=== PATIENT | male | born 1970 | race Hispanic/Latino ===

== ENCOUNTER 2018-03-23 15:41 | Emergency (ER) | payer OTHER ==
--- OUTSIDE RECORDS SUMMARY | 2018-03-23 15:43 | XMS REPORT ---
:1970 Author Organization eClinicalWorks Care Team Providers Name Role Phone Rene Lai Provider Role Unavailable Allergies, Adverse Reactions, Alerts Substance Reaction Event Type Amoxicillin Info Not Available Drug Allergy Problems Problem Type Condition Code Onset Dates Condition Status Problem Microcytic anemia D50.9 Active Problem Pulmonary embolism I26.99 Active Problem Hx pulmonary embolism Z86.711 Active Problem Benign essential HTN I10 Active Problem Vitamin D deficiency E55.9 Active Problem Erectile dysfunction, unspecified N52.9 Active erectile dysfunction type Problem Prediabetes R73.09 Active Problem Onychomycosis B35.1 Active Problem GERD (gastroesophageal reflux K21.9 Active disease) Problem Morbid obesity E66.01 Active Assessment Microcytic anemia D50.9 Active Assessment Erectile dysfunction, unspecified N52.9 Active erectile dysfunction type Assessment Chronic atrial fibrillation I48.2 Active Assessment GERD (gastroesophageal reflux K21.9 Active disease) Assessment Benign essential HTN I10 Active Assessment Prediabetes R73.09 Active Problem Chronic atrial fibrillation I48.2 Active Medications Medication Code Code Instructions Start End Status Dosage System Date Date [facility] 71647733878 81 MG Orally Active 1 tablet Once a day Calcium + D3 [facility] 45756611815 600-200 MG-UNIT Active 1 tablet Orally Once a with a day meal Ferrous Sulfate [facility] [address]-48 325 MG Orally Active not defined Vitamin B12 [facility] 33980140180 1000 MCG Orally Active 1 tablet Once a day Metoprolol [facility] 52695625257 25 MG Orally Active 1 tablet Tartrate Twice a day with food Rythmol [facility] 78404796959 225 MG Orally Active 1 tablet every 8 hrs Sildenafil ND 49944810477 20 MG Orally December 12January Active 1 tablet Citrate Three times a 2017 Multivitamin [facility] 94642552553 - Orally Active not defined Results No Known Results Summary Purpose eClinicalWorks Submission
[2018-03-23] MEDS ORDERED: NA CHLORIDE 0.9% 500 ML ONE (16:00)
[2018-03-23 16:20] LABS: Absolute Lymphocytes (CBC) 1.5 K/uL (0.7-4.9); Absolute Monocytes 0.8 K/uL (0.1-1.3); Absolute Neutrophil 6.6 K/uL (1.8-8.0); Basophils % 0.5 % (0-1.3); Eosinophils % 3.1 % (0-4.4); Hematocrit 43.5 % (39.6-49.0); Lymphocytes % 16.2 % (15.3-44.8); MCH 29.8 pg (27.0-35.0); MCV 89.5 fL (80-100); MPV 8.9 fL (7.6-11.3); Monocytes % 8.9 % (3.3-12.3); RBC Red Blood Cell Count 4.86 M/uL (4.33-5.43)
--- NOTE | 2018-03-23 16:30 | RAD REPORT ---
EXAM DESCRIPTION: RAD - Chest Single View - 03/23/2018 4:23 pm CLINICAL HISTORY: Palpitations;Chest pain Chest pain. COMPARISON: Chest Single View dated 02/21/2017; CHEST SINGLE VIEW dated 01/02/2015; CHEST SINGLE VIEW d ated 03/24/2013; CHEST SINGLE VIEW dated 11/04/2011 FINDINGS: Portable technique limits examination quality. The lungs are grossly clear. The heart is normal in size. No displaced fractures. IMPRESSION: No acute intrathoracic process suspected.
[2018-03-23 16:35] LABS: Protime INR 1.13
[2018-03-23 17:52] LABS: ALT/SGPT 34 U/L (12-78); AST/SGOT 24 U/L (15-37); Albumin 3.6 g/dL (3.4-5.0); Alkaline Phosphatase 119 U/L (45-117); BUN Blood Urea Nitrogen 16 mg/dL (7-18); Bicarbonate 27 mmol/L (21-32); Bilirubin Direct 0.2 mg/dL (0-0.2); Bilirubin Total 0.5 mg/dL (0.2-1.0); Glucose Level 79 mg/dL (74-106); Magnesium 2.3 mg/dL (1.8-2.4); NT PRO-BNP 48 pg/mL (<125); Potassium 4.1 mmol/L (3.5-5.1); Protein, Total 7.5 g/dL (6.4-8.2); Sodium Level 143 mmol/L (136-145); T3 Free 2.75 pg/mL (2.18-3.98); Troponin (Emerg Dept Use Only) < 0.02 ng/mL (0.0-0.045)
[2018-03-23] MEDS ORDERED: ACETAMINOPHEN 500 MG TAB ONE (18:57)
--- NOTE | 2018-03-23 19:38 | ER ---
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 aa5 Pt states "I was just here at work when it started". 15:39 Transition of care: patient was not received from another setting of care. Onset of aa5 symptoms was March 23, 2018. Risk Assessment: Do you want to hurt yourself or someone else? Patient reports no desire to harm self or others. Initial Sepsis Screen: Does the patient meet any 2 criteria? No. Patient's initial sepsis screen is negative. Does the patient have a suspected source of infection? No. Patient's initial sepsis screen is negative. Care prior to arrival: None. 15:39 Method Of Arrival: Ambulatory aa5 15:39 Acuity: MATT 3 aa5 Historical: - Allergies: 15:41 PENICILLINS; aa5 - PMHx: 15:41 Atrial Fib; aa5 - PSHx: 15:41 kristy knee surgery; Gastric Bypass; aa5 - Immunization history:: Adult Immunizations up to date. - Social history:: Smoking status: Patient/guardian denies using tobacco. - Ebola Screening: : No symptoms or risks identified at this time. Screenin:02 Abuse screen: Denies threats or abuse. Denies injuries from another. Nutritional aj screening: No deficits noted. Tuberculosis screening: No symptoms or risk factors identified. Fall Risk None identified. Assessment: 16:02 General: Appears in no apparent distress. comfortable, Behavior is calm, cooperative, aj appropriate for age. Pain: Denies pain. Neuro: Level of Consciousness is awake, alert, obeys commands, Oriented to person, place, time, situation, Appropriate for age. Cardiovascular: Reports lightheadedness, palpitations. Respiratory: Airway is patent Respiratory effort is even, unlabored, Respiratory pattern is regular, symmetrical. Derm: Skin is intact, is healthy with good turgor, Skin is pink, warm \\T\\ dry. normal. 18:48 Reassessment: Patient appears in no apparent distress at this time. No changes from aj previously documented assessment. Patient and/or family updated on plan of care and expected duration. Pain level reassessed. Patient is alert, oriented x 3, equal unlabored respirations, skin warm/dry/pink. Patient denies pain at this time. Patient states feeling better. Patient states symptoms have improved. 19:12 Reassessment: Patient appears in no apparent distress at this time. No changes from jd3 previously documented assessment. Patient and/or family updated on plan of care and expected duration. Pain level reassessed. Patient is alert, oriented x 3, equal unlabored respirations, skin warm/dry/pink. Patient denies pain at this time. Patient states feeling better. 19:46 Reassessment: Patient appears in no apparent distress at this time. Patient and/or jd3 family updated on plan of care and expected duration. Pain level reassessed. Patient is alert, oriented x 3, equal unlabored respirations, skin warm/dry/pink. Vital Signs: 15:41 BP 148 / 86; Pulse 104; Resp 18 S; Pulse Ox 96% on R/A; Weight 161.03 kg (R); Height 5 aa5 ft. 8 in. (172.72 cm) (R); Pain 4/10; 16:02 BP 140 / 86; Pulse 97; Resp 16; Pulse Ox 97% on R/A; aj 17:05 BP 137 / 83; Pulse 81; Resp 18; Pulse Ox 99% on R/A; mh5 18:48 BP 132 / 90; Pulse 94; Resp 16; Pulse Ox 99% on R/A; aj 15:41 Body Mass Index 53.98 (161.03 kg, 172.72 cm) aa5 ED Course: 15:39 Patient arrived in ED. aj 15:39 Arm band placed on Patient placed in an exam room, on a stretcher. aa5 15:42 EKG completed in triage. Results shown to MD. aa5 15:44 Jorge Roberson PA is PHCP. cp 15:44 Matt Myles MD is Attending Physician. cp 15:45 EKG done, by wind technician. reviewed by Matt Myles MD. 3 15:47 Triage completed. aa5 15:49 Marlin Wisdom, RN is Primary Nurse. aj 16:02 Patient has correct armband on for positive identification. aj 16:02 Inserted saline lock: 20 gauge in right antecubital area, using aseptic technique. aj Blood collected. 16:22 X-ray completed. Portable x-ray completed in exam room. Patient tolerated procedure az well. 16:23 XRAY Chest (1 view) In Process Unspecified. EDMS 19:36 Ismael Cope MD is Referral Physician. cp 19:45 No provider procedures requiring assistance completed. IV discontinued, intact, jd3 bleeding controlled, No redness/swelling at site. Pressure dressing applied. Administered Medications: 16:02 Drug: NS 0.9% 500 ml Route: IV; Rate: bolus; Site: right antecubital; aj 18:54 Follow up: Response: No adverse reaction; IV Status: Completed infusion; IV Intake: aj 500ml 18:54 Drug: Tylenol 1000 mg Route: PO; aj 19:45 Follow up: Response: No adverse reaction jd3 Point of Care Testing: Blood Glucose: 16:10 Blood Glucose: 100 mg/dL; 5 Ranges: Intake: 18:54 IV: 500ml; Total: 500ml. aj Outcome: 19:37 Discharge ordered by MD. cp 19:45 Discharged to home ambulatory. jd3 19:45 Condition: stable 19:45 Discharge instructions given to patient, Instructed on discharge instructions, follow up and referral plans. Demonstrated understanding of instructions, follow-up care. 19:46 Patient left the ED. jd3 Signatures: Dispatcher [employer] Marlin Titus RN Sade David RN RN aa5 Jorge Roberson PA PA cp Martinez, Maria [facility] Nikhil Damian RN RN jd3 Osiris Gardner [facility] Gris Swenson nd
--- NOTE | 2018-03-23 19:38 | EDPHYS ---
Physician Documentation [facility] Name: Syed Chambers Age: 48 yrs Sex: Male : 1970 Arrival Date: 03/23/2018 Time: 15:39 Bed 18 Private MD: ED Physician Matt Myles HPI: 03/23 15:55 This 48 yrs old Male presents to ER via Ambulatory with complaints of Chest cp Pain. 15:55 The patient or guardian reports chest pain that is located primarily in the anterior cp chest wall, bilaterally. Onset: 45 minute(s) ago. The pain does not radiate. Associated signs and symptoms: Pertinent positives: palpitations, Pertinent negatives: abdominal pain, diaphoresis, dizziness, lower extremity pain, lower extremity swelling, lightheadedness, near syncope, recent travel, shortness of breath, syncope. 15:55 Duration: The patient or guardian reports a single episode, that is still ongoing, but cp improving. 15:55 Severity of pain: in the emergency department the pain has improved markedly. cp Historical: - Allergies: 15:41 PENICILLINS; aa5 - PMHx: 15:41 Atrial Fib; aa5 - PSHx: 15:41 kristy knee surgery; Gastric Bypass; aa5 - Immunization history:: Adult Immunizations up to date. - Social history:: Smoking status: Patient/guardian denies using tobacco. - Ebola Screening: : No symptoms or risks identified at this time. ROS: 16:00 Constitutional: Negative for body aches, chills, fever, poor PO intake. cp 16:00 Eyes: Negative for injury, pain, redness, and discharge. cp 16:00 ENT: Negative for drainage from ear(s), ear pain, sore throat, difficulty swallowing, difficulty handling secretions. 16:00 Cardiovascular: Positive for chest pain, palpitations, Negative for edema. 16:00 Respiratory: Negative for cough, dyspnea on exertion, shortness of breath, wheezing. 16:00 Abdomen/GI: Negative for abdominal pain, nausea and vomiting, constipation, black/tarry stool, rectal bleeding. 16:00 Back: Negative for pain at rest, pain with movement, radiated pain. 16:00 : Negative for urinary symptoms. 16:00 Skin: Negative for cellulitis, rash. 16:00 Neuro: Negative for altered mental status, headache, syncope, near syncope, weakness. 16:00 All other systems are negative. Exam: 15:45 ECG was reviewed by the Attending Physician. cp 16:05 Constitutional: The patient appears in no acute distress, alert, awake, cp non-diaphoretic, non-toxic, well developed, well nourished, obese. 16:05 Head/Face: Normocephalic, atraumatic. Eyes: Pupils equal round and reactive to light, cp extra-ocular motions intact. Lids and lashes normal. Conjunctiva and sclera are non-icteric and not injected. Cornea within normal limits. Periorbital areas with no swelling, redness, or edema. ENT: Nares patent. No nasal discharge, no septal abnormalities noted. Tympanic membranes are normal and external auditory canals are clear. Oropharynx with no redness, swelling, or masses, exudates, or evidence of obstruction, uvula midline. Mucous membranes moist. Chest/axilla: Normal chest wall appearance and motion. Nontender with no deformity. No lesions are appreciated. 16:05 Cardiovascular: Rate: normal, Rhythm: regular, Pulses: Pulses are 2+ in right radial artery and left radial artery. Heart sounds: murmur, not appreciated, rub, not appreciated, gallop, not appreciated, Edema: is not appreciated, JVD: is not appreciated. 16:05 Respiratory: the patient does not display signs of respiratory distress, Respirations: normal, no use of accessory muscles, no retractions, no splinting, no tachypnea, labored breathing, is not present, Breath sounds: are clear throughout, no decreased breath sounds, no stridor, no wheezing. 16:05 Abdomen/GI: Inspection: obese Palpation: abdomen is soft and non-tender, in all quadrants, rebound tenderness, is not appreciated, voluntary guarding, is not appreciated, involuntary guarding, is not appreciated. 16:05 Back: pain, is absent, ROM is normal. 16:05 Skin: cellulitis, is not appreciated, no rash present. 16:05 Neuro: Orientation: to person, place \T\ time. Mentation: lucid, able to follow commands, Cerebellar function: is grossly normal, Motor: moves all fours, strength is normal, Sensation: is normal. 19:15 ECG was reviewed by the Attending Physician. cp Vital Signs: 15:41 BP 148 / 86; Pulse 104; Resp 18 S; Pulse Ox 96% on R/A; Weight 161.03 kg (R); Height 5 aa5 ft. 8 in. (172.72 cm) (R); Pain 4/10; 16:02 BP 140 / 86; Pulse 97; Resp 16; Pulse Ox 97% on R/A; aj 17:05 BP 137 / 83; Pulse 81; Resp 18; Pulse Ox 99% on R/A; mh5 18:48 BP 132 / 90; Pulse 94; Resp 16; Pulse Ox 99% on R/A; aj 15:41 Body Mass Index 53.98 (161.03 kg, 172.72 cm) aa5 MDM: 15:45 Patient medically screened. cp 16:00 Differential diagnosis: abnormal EKG, acute myocardial infarction, acute pericarditis, cp chest wall pain, costochondritis, gastritis, pericarditis, pneumonia, pneumothorax, pulmonary embolus, stable angina, unstable angina. 19:35 Data reviewed: vital signs, nurses notes, lab test result(s), EKG, radiologic studies, cp plain films. 19:35 Test interpretation: by ED physician or midlevel provider: ECG, plain radiologic cp studies. Counseling: I had a detailed discussion with the patient and/or guardian regarding: the historical points, exam findings, and any diagnostic results supporting the discharge/admit diagnosis, lab results, radiology results, the need for outpatient follow up, a rn labor delivery, to return to the emergency department if symptoms worsen or persist or if there are any questions or concerns that arise at home. Special discussion: Based on the patient's history, exam, and Dx evaluation, there is no indication for emergent intervention or inpatient Tx. It is understood by the patient/guardian that if the Sx's persist or worsen they need to return immediately for re-evaluation. ED course: VSS. Patient reports symptoms markedly improved. Will discharge to home for continued monitoring. 03/23 15:50 Order name: Basic Metabolic Panel; Complete Time: 17:58 cp 03/23 17:58 Interpretation: Normal except: CL 110. cp 03/23 15:50 Order name: CBC with Diff; Complete Time: 17:58 cp 03/23 15:50 Order name: LFT's; Complete Time: 17:58 cp 03/23 17:58 Interpretation: Normal except: ALK 119; GLOB 3.9; A/G 0.9. cp / 15:50 Order name: Magnesium; Complete Time: 17:58 cp 03/23 15:50 Order name: NT PRO-BNP; Complete Time: 17:58 cp 03/23 15:50 Order name: PT-INR; Complete Time: 17:58 cp 03/23 15:50 Order name: Troponin (emerg Dept Use Only); Complete Time: 17:58 cp 03/23 15:50 Order name: XRAY Chest (1 view); Complete Time: 17:58 cp 03/23 18:01 Interpretation: Report review. 03/23 15:50 Order name: EKG; Complete Time: 15:50 cp 03/23 15:50 Order name: TSH; Complete Time: 17:58 cp 03/23 15:50 Order name: T3 Free; Complete Time: 17:58 cp 03/23 18:50 Order name: Troponin (emerg Dept Use Only); Complete Time: 19:35 aj 03/23 19:35 Interpretation: TROPED < 0.02; Reviewed. 03/23 15:50 Order name: Cardiac monitoring; Complete Time: 18:18 cp 03/23 15:50 Order name: EKG - Nurse/Tech; Complete Time: 17:00 cp 03/23 15:50 Order name: IV Saline Lock; Complete Time: 17:00 cp 03/23 15:50 Order name: Labs collected and sent; Complete Time: 18:18 cp 03/23 15:50 Order name: O2 Per Protocol; Complete Time: 18:18 cp 03/23 15:50 Order name: O2 Sat Monitoring; Complete Time: 18:18 cp 03/23 15:50 Order name: Accucheck Blood Glucose; Complete Time: 16:58 cp 03/23 16:33 Order name: Labs - recollect needed; Complete Time: 17:31 eb 03/23 19:00 Order name: EKG; Complete Time: 19:00 cp 03/23 19:00 Order name: EKG - Nurse/Tech; Complete Time: 19:11 cp EC:45 Rate is 106 beats/min. Rhythm is regular. IA interval is normal. QRS interval is cp normal. QT interval is normal. Interpreted by me. Reviewed by me. 19:15 Rate is 65 beats/min. Rhythm is regular. IA interval is normal. QRS interval is normal. cp QT interval is normal. T waves are Inverted in lead III. Interpreted by me. Reviewed by me. Administered Medications: 16:02 Drug: NS 0.9% 500 ml Route: IV; Rate: bolus; Site: right antecubital; aj 18:54 Follow up: Response: No adverse reaction; IV Status: Completed infusion; IV Intake: aj 500ml 18:54 Drug: Tylenol 1000 mg Route: PO; 19:45 Follow up: Response: No adverse reaction jd3 Point of Care Testing: Blood Glucose: 16:10 Blood Glucose: 100 mg/dL; mh5 Ranges: Critical Glucose Levels:Adult <50 mg/dl or >400 mg/dl <40 mg/dl or >180 mg/dl Disposition: 03/24 09:23 Co-signature as Attending Physician, Matt Myles MD I agree with the assessment and kdr plan of care. Disposition: 03/23/18 19:37 Discharged to Home. Impression: Palpitations, Chest pain, unspecified. - Condition is Stable. - Discharge Instructions: Nonspecific Chest Pain, Palpitations, Aspirin and Your Heart. - Medication Reconciliation Form, Thank You Letter, Antibiotic Education, Prescription Opioid Use form. - Follow up: Ismael Cope MD; When: 2 - 3 days; Reason: Recheck today's complaints. - Problem is new. - Symptoms have improved. Signatures: Dispatcher [employer] EDMarlin Parra, RN Matt Woods MD MD kdr Calderon, Audri RN RN aa5 Jorge Roberson PA PA cp Davies, Jonathon RN RN jd3 Anabela Rios Corrections: (The following items were deleted from the chart) 03/23 19:46 19:37 03/23/2018 19:37 Discharged to Home. Impression: Palpitations; Chest pain, jd3 unspecified. Condition is Stable. Forms are Medication Reconciliation Form, Thank You Letter, Antibiotic Education, Prescription Opioid Use. Follow up: Ismael Cope; When: 2 - 3 days; Reason: Recheck today's complaints. Problem is new. Symptoms have improved. cp
[2018-03-23 19:53] VITALS: O2SAT 99
[2018-03-23 19:54] VITALS: BP 132/90
--- NOTE | 2018-03-24 06:55 | EKG ---
Test Date: 2018-03-23 Test Time: 15:40:44 Bank Vault Clerk: ANABEL MEASUREMENT RESULTS: Intervals: Rate: 106 OK: 166 QRSD: 78 QT: 346 QTc: 459 [place]: P: 42 OK: 166 QRS: 0 T: 30 INTERPRETIVE STATEMENTS: Sinus tachycardia Moderate voltage criteria for LVH, may be normal variant Borderline ECG Compared to ECG 02/22/2017 07:06:10 Sinus rhythm no longer present Electronically Signed On 03-24-18 06:54:32 CDT by Geoff Sheehan
--- NOTE | 2018-03-25 11:01 | EKG ---
Test Date: 2018-03-23 Test Time: 19:09:44 Zigzag Elastic Attacher: MARGA MEASUREMENT RESULTS: Intervals: Rate: 65 NH: 168 QRSD: 90 QT: 416 QTc: 432 [place]: P: 11 NH: 168 QRS: -1 T: 4 INTERPRETIVE STATEMENTS: Normal sinus rhythm Moderate voltage criteria for LVH, may be normal variant Borderline ECG Compared to ECG 03/23/2018 15:40:44 Sinus tachycardia no longer present Electronically Signed On 03-25-18 10:56:08 CDT by Geoff Sheehan
== END 2018-03-23 19:46 | disposition home or self-care (01) ==
LOC: ER 15:41
DX: R00.2 Palpitations (principal); Z88.0 Allergy status to penicillin
CPT/HCPCS: 36415; 71045; 80048; 80076; 82962; 83735; 83880; 84443; 84481; 84484; 85025; 85610; 93005; 96360; 96361; 99284

== ENCOUNTER 2018-08-07 19:26 | Observation (INO) | payer OTHER ==
--- OUTSIDE RECORDS SUMMARY | 2018-08-07 19:29 | XMS REPORT ---
:1970 Author Organization eClinicalWorks Care Team Providers Name Role Phone Rene [facility] Provider Role Unavailable Allergies, Adverse Reactions, Alerts Substance Reaction Event Type Amoxicillin Info Not Available Drug Allergy Problems Problem Type Condition Code Onset Dates Condition Status Problem Hx pulmonary embolism Z86.711 Active Problem Onychomycosis B35.1 Active Problem Pulmonary embolism I26.99 Active Problem Erectile dysfunction, unspecified N52.9 Active erectile dysfunction type Assessment Microcytic anemia D50.9 Active Problem Benign essential HTN I10 Active Problem Adult BMI 50.0-59.9 kg/sq m Z68.43 Active Problem Morbid obesity E66.01 Active Problem Prediabetes R73.09 Active Problem Vitamin D deficiency E55.9 Active Problem GERD (gastroesophageal reflux K21.9 Active disease) Assessment Erectile dysfunction, unspecified N52.9 Active erectile dysfunction type Assessment Chronic atrial fibrillation I48.2 Active Assessment GERD (gastroesophageal reflux K21.9 Active disease) Assessment Prediabetes R73.09 Active Assessment Well adult on routine health check Z00.00 Active Assessment Benign essential HTN I10 Active Problem Chronic atrial fibrillation I48.2 Active Assessment Adult BMI 50.0-59.9 kg/sq m Z68.43 Active Problem Microcytic anemia D50.9 Active Medications Medication Code Code Instructions Start End Status Dosage System Date Date Sildenafil [facility] 56270897195 100 MG Orally Jul 20, Aug 19, Active 1 tablet Citrate Once a day 2018 2018 as needed Aspir-81 [facility] 22097482228 81 MG Orally Active 1 tablet Once a day Multivitamin [facility] 47718652482 - Orally Active not defined Vitamin B12 [facility] 12140957125 1000 MCG Orally Active 1 tablet Once a day Metoprolol [facility] 13276012069 25 MG Orally Active 1 tablet Tartrate Twice a day with food Rythmol [facility] 40379275722 225 MG Orally Active 1 tablet every 8 hrs Ferrous Sulfate [facility] [address]-20 325 MG Orally Active not defined Calcium + D3 [facility] 15588614292 600-200 MG-UNIT Active 1 tablet Orally Once a with a day meal Metoprolol [facility] 44426438997 25 MG Active TAKE ONE Tartrate TABLET BY MOUTH TWICE A DAY Rythmol [facility] 88228741520 225 MG Active TAKE ONE TABLET BY MOUTH EVERY 8 HOURS Results No Known Results Summary Purpose eClinicalWorks Submission
--- OUTSIDE RECORDS SUMMARY | 2018-08-07 19:29 | XMS REPORT ---
[...] Start End Status Dosage System Date Date [facility] [place] 2[place] 56626406287 81 MG Orally Active 1 tablet Once a day Calcium + D3 [facility] [place] 2] 56681453245 600-200 MG-UNIT Active 1 tablet Orally Once a with a day meal Ferrous Sulfate [facility] [place]NOTE 2] [address]-93 325 MG Orally Active not defined Vitamin B12 [facility] [place]NOTE 2] 92964832246 1000 MCG Orally Active 1 tablet Once a day Metoprolol [facility] [place]NOTE 2] 59808687105 25 MG Orally Active 1 tablet Tartrate Twice a day with food Rythmol [facility] [place]NOTE 2] 75884071505 225 MG Orally Active 1 tablet every 8 hrs Sildenafil ND 70404527160 20 MG Orally December 12January Active 1 tablet Citrate Three times a 2017 Multivitamin [facility] [place]NOTE 2] 81395818973 - Orally Active not defined Results No Known Results Summary Purpose eClinicalWorks Submission
--- OUTSIDE RECORDS SUMMARY | 2018-08-07 19:29 | XMS REPORT ---
:1970 Author Organization eClinicalWorks Care Team Providers Name Role Phone Rene [facility] Provider Role Unavailable Allergies No Known Allergies Problems Problem Type Condition Code Onset Dates Condition Status Problem Microcytic anemia D50.9 Active Problem Pulmonary embolism I26.99 Active Problem Hx pulmonary embolism Z86.711 Active Problem Chronic atrial fibrillation I48.2 Active Problem Benign essential HTN I10 Active Problem Vitamin D deficiency E55.9 Active Problem Erectile dysfunction, unspecified N52.9 Active erectile dysfunction type Problem Prediabetes R73.09 Active Problem Onychomycosis B35.1 Active Problem GERD (gastroesophageal reflux K21.9 Active disease) Problem Morbid obesity E66.01 Active Medications No Known Medications Results No Known Results Summary Purpose eClinicalWorks Submission
--- OUTSIDE RECORDS SUMMARY | 2018-08-07 19:29 | XMS REPORT ---
:1970 Author Organization eClinicalWorks Care Team Providers Name Role Phone [facility] Provider Role Unavailable Allergies No Known Allergies Problems Problem Type Condition Code Onset Dates Condition Status Problem Hx pulmonary embolism Z86.711 Active Problem Onychomycosis B35.1 Active Problem Pulmonary embolism I26.99 Active Problem Chronic atrial fibrillation I48.2 Active Problem Microcytic anemia D50.9 Active Problem Erectile dysfunction, unspecified N52.9 Active erectile dysfunction type Problem Benign essential HTN I10 Active Problem Adult BMI 50.0-59.9 kg/sq m Z68.43 Active Problem Morbid obesity E66.01 Active Problem Prediabetes R73.09 Active Problem Vitamin D deficiency E55.9 Active Problem GERD (gastroesophageal reflux K21.9 Active disease) Medications No Known Medications Results No Known Results Summary Purpose eClinicalWorks Submission
[2018-08-07 20:07] LABS: Absolute Lymphocytes (CBC) 2.2 K/uL (0.7-4.9); Absolute Monocytes 0.9 K/uL (0.1-1.3); Absolute Neutrophil 5.7 K/uL (1.8-8.0); Basophils % 0.5 % (0-1.3); Eosinophils % 2.3 % (0-4.4); Hematocrit 43.7 % (39.6-49.0); Lymphocytes % 24.2 % (15.3-44.8); MPV 8.1 fL (7.6-11.3); Monocytes % 10.1 % (3.3-12.3); RBC Red Blood Cell Count 4.94 M/uL (4.33-5.43)
[2018-08-07] MEDS ORDERED: NA CHLORIDE 0.9% 1,000 ML ONE ×2 (20:13→21:57)
[2018-08-07 20:17] LABS: Urine Blood 3+ (NEG); Urine Glucose NEGATIVE (NEG); Urine Protein TRACE (NEG); Urine Specific Gravity >1.030 (1.005-1.030)
[2018-08-07 20:25] LABS: Albumin 3.8 g/dL (3.4-5.0); Bilirubin Direct 0.2 mg/dL (0-0.2); Bilirubin Total 0.7 mg/dL (0.2-1.0); Protein, Total 7.7 g/dL (6.4-8.2)
--- NOTE | 2018-08-07 20:37 | RAD REPORT ---
EXAM DESCRIPTION: CT - Stone Protocol - 08/07/2018 8:12 pm CLINICAL HISTORY: Abdominal pain. Left flank pain COMPARISON: None. TECHNIQUE: Computed axial tomography of the abdomen pelvis was obtained without oral or IV contrast. Lack of IV and oral contrast limits evaluation of solid organs, bowel, and vessels. Coronal reformat colin images were obtained and reviewed. All CT scans are performed using dose optimization technique as appropriate and may include automated exposure control or mA/KV adjustment according to patient size. FINDINGS: Bilateral renal calculi are present measuring between 1 and 4 millimeters. Mild left hydro nephrosis is present. A 7 millimeter calculus is present within the proximal left ureter Houn[place] u nit 1200. A 5.9 centimeter low-density mass extends off of the right kidney. It is nonspecific withou t IV contrast The liver, spleen, pancreas and adrenals appear grossly normal There is no evidence of diverticulitis. Postsurgical changes involve the stomach A periumbilical hernia contains fat. The neck measures a couple centimeters IMPRESSION: 7 mm calculus in the proximal left ureter resulting in mild left hydronephrosis
[2018-08-07] MEDS ORDERED: ONDANSETRON 4 MG/2 ML VIAL ONE (20:46)
[2018-08-07] MEDS ORDERED: MORPHINE 4 MG/ML SYR ONE (20:46)
--- NOTE | 2018-08-07 20:49 | ER ---
Nurse's Notes [facility] Name: Syed Chambers Age: 48 yrs Sex: Male : 1970 Arrival Date: 08/07/2018 Time: 19:29 Bed Treatment Private MD: Lai López Diagnosis: Hydronephrosis with renal and ureteral calculous obstruction-7 mm prox ;Atrial fibrillation and flutter-hx of Presentation: 08/07 20:31 Presenting complaint: Patient states: "PAIN STARTED TUESDAY BUT ON AND OFF. A LITTLE rv BIT OF BLOOD IN URINE TOO. PAIN GOT WORSE TODAY.". Transition of care: patient was not received from another setting of care. Onset of symptoms was August 05, 2018 at 08:00. Risk Assessment: Do you want to hurt yourself or someone else? Patient reports no desire to harm self or others. Initial Sepsis Screen: Does the patient meet any 2 criteria? No. Patient's initial sepsis screen is negative. Does the patient have a suspected source of infection? No. Patient's initial sepsis screen is negative. Care prior to arrival: None. 20:31 Method Of Arrival: Ambulatory 20:31 Acuity: MATT 3 rv Historical: - Allergies: 21:07 PENICILLINS; rv - Home Meds: 21:07 metoprolol tartrate 25 mg Oral tab 1 tab 2 times per day [Active]; propafenone 225 mg rv Oral tab 1 tab every 8 hours [Active]; aspirin 81 mg Oral tab 1 tab once daily [Active]; - PMHx: 21:07 Atrial Fib; Hypertension; rv - PSHx: 21:07 Knee surgery; rv - Immunization history:: Adult Immunizations up to date. - Family history:: not pertinent. - Social history:: Smoking status: Patient/guardian denies using tobacco, never smoked. - Ebola Screening: : Patient negative for fever greater than or equal to 101.5 degrees Fahrenheit, and additional compatible Ebola Virus Disease symptoms Patient denies exposure to infectious person Patient denies travel to an Ebola-affected area in the 21 days before illness onset. Screenin:05 Abuse screen: Denies threats or abuse. Denies injuries from another. Nutritional rv screening: No deficits noted. Tuberculosis screening: No symptoms or risk factors identified. Fall Risk None identified. Assessment: 21:04 General: Appears in no apparent distress. uncomfortable, Behavior is cooperative. Pain: rv Complains of pain in flank. Neuro: Level of Consciousness is awake, alert, obeys commands, Oriented to person, place, time, situation. Cardiovascular: Capillary refill < 3 seconds. Respiratory: Airway is patent. GI: No signs and/or symptoms were reported involving the gastrointestinal system. : No signs and/or symptoms were reported regarding the genitourinary system. EENT: No signs and/or symptoms were reported regarding the EENT system. Derm: Skin is intact. Musculoskeletal: No signs and/or symptoms reported regarding the musculoskeletal system. 22:00 Reassessment: Patient and/or family updated on plan of care and expected duration. Pain bb level reassessed. Patient is alert, oriented x 3, equal unlabored respirations, skin warm/dry/pink. pt instructed on need for admit verbalized understanding of and agrees to plan of care. Patient states symptoms have not improved. Vital Signs: 20:00 BP 148 / 95; Pulse 84; Resp 18; Temp 98.7; Pulse Ox 100% on R/A; rv 20:30 BP 131 / 94; Pulse 86; Resp 18; Pulse Ox 100% on R/A; rv 21:00 BP 152 / 103; Pulse 92; Resp 18 S; Pulse Ox 100% on R/A; rv ED Course: 19:29 Patient arrived in ED. es 19:29 Lia López DO is Private Physician. es 19:44 Jorge Gar MD is Attending Physician. rv 20:00 Inserted saline lock: 20 gauge in left antecubital area, using aseptic technique. Blood rv collected. 20:13 CT Stone Protocol: with and without contrast In Process Unspecified. EDMS 20:32 Triage completed. rv 20:47 Poncho Hernández MD is Hospitalizing Provider. mychal 21:05 Arm band placed on right wrist. rv 21:08 Patient has correct armband on for positive identification. Bed in low position. Call rv light in reach. Pulse ox on. NIBP on. 21:14 X-ray completed. Patient tolerated procedure well. Patient moved back from radiology. ls3 21:15 Abdomen 1 View (KUB) XRAY In Process Unspecified. EDMS 23:37 No provider procedures requiring assistance completed. Patient admitted, IV remains in bb place. Administered Medications: 20:31 Drug: NS 0.9% 500 ml Route: IV; Rate: bolus; Site: left antecubital; rv 21:30 Follow up: IV Status: Completed infusion; IV Intake: 500ml bb 20:39 Drug: morphine 4 mg Route: IVP; Site: left antecubital; rv 21:40 Follow up: Response: Pain is unchanged, physician notified rv 20:39 Drug: Zofran 4 mg Route: IVP; Site: left antecubital; rv 22:48 Follow up: Response: Nausea is decreased rv 21:15 Drug: Flomax 0.4 mg Route: PO; rv 22:48 Follow up: Response: Pain is decreased rv 21:20 Drug: Rocephin - (cefTRIAXone) 1 grams Route: IVPB; Infused Over: 30 mins; Site: left rv antecubital; 21:40 Follow up: IV Status: Completed infusion rv 21:20 Drug: Dilaudid 0.5 mg Route: IVP; Site: left antecubital; rv 22:49 Follow up: Response: Pain is decreased rv 08/08 02:39 Not Given (Physician Discretion): Dilaudid 0.5 mg IVP once bb 07:09 CANCELLED (Physician Discretion): NS 0.9% 1000 ml IV at 125 ml/hr continuous bb Intake: 08/07 21:30 IV: 500ml; Total: 500ml. bb Outcome: 20:47 Decision to Hospitalize by Provider. [facility] 22:00 Instructed on the need for admit. bb 22:30 Admitted to ER Hold. Please see [facility] for further documentation. bb 22:30 Condition: stable 08/08 07:50 Admitted to Tele accompanied by tech, via wheelchair, room 428, with chart, Report aa5 called to JAQUELIN Walker 07:50 Condition: stable aa5 07:50 Instructed on the need for admit, Demonstrated understanding of instructions. 07:56 Patient left the ED. aa5 Signatures: Dispatcher [employer] Jorge Bright MD MD cha Salyer, Edna es Ballard, Brenda RN RN bb Sade Chaidez RN RN aa5 Brandon Du RN RN Mariposa Renee 3
--- NOTE | 2018-08-07 20:50 | EDPHYS ---
Physician Documentation [facility] Name: Syed Chambers Age: 48 yrs Sex: Male : 1970 Arrival Date: 08/07/2018 Time: 19:29 Bed Treatment Private MD: Rene [facility] ED Physician Jorge Gar HPI: 08/07 20:23 This 48 yrs old Male presents to ER via Unassigned with complaints of Flank mychal Pain. 20:23 The patient complains of pain in the left low back and left mid back. The pain radiates mychal to the left low back and left mid back. Onset: The symptoms/episode began/occurred 3 day(s) ago. Modifying factors: The symptoms are alleviated by nothing. the symptoms are aggravated by nothing. Associated signs and symptoms: The patient has no apparent associated signs or symptoms. Severity of pain: At its worst the pain was moderate in the emergency department the pain is unchanged. The patient has not experienced similar symptoms in the past. Historical: - Allergies: 21:07 PENICILLINS; rv - Home Meds: 21:07 metoprolol tartrate 25 mg Oral tab 1 tab 2 times per day [Active]; propafenone 225 mg rv Oral tab 1 tab every 8 hours [Active]; aspirin 81 mg Oral tab 1 tab once daily [Active]; - PMHx: 21:07 Atrial Fib; Hypertension; rv - PSHx: 21:07 Knee surgery; rv - Immunization history:: Adult Immunizations up to date. - Family history:: not pertinent. - Social history:: Smoking status: Patient/guardian denies using tobacco, never smoked. - Ebola Screening: : Patient negative for fever greater than or equal to 101.5 degrees Fahrenheit, and additional compatible Ebola Virus Disease symptoms Patient denies exposure to infectious person Patient denies travel to an Ebola-affected area in the 21 days before illness onset. ROS: 20:24 Constitutional: Negative for fever, chills, and weight loss, Eyes: Negative for injury, mychal pain, redness, and discharge, ENT: Negative for injury, pain, and discharge, Neck: Negative for injury, pain, and swelling, Cardiovascular: Negative for chest pain, palpitations, and edema, Respiratory: Negative for shortness of breath, cough, wheezing, and pleuritic chest pain, Abdomen/GI: Negative for abdominal pain, nausea, vomiting, diarrhea, and constipation, : Negative for injury, bleeding, discharge, and swelling, MS/Extremity: Negative for injury and deformity, Skin: Negative for injury, rash, and discoloration, Neuro: Negative for headache, weakness, numbness, tingling, and seizure, Psych: Negative for depression, anxiety, suicide ideation, homicidal ideation, and hallucinations, Allergy/Immunology: Negative for hives, rash, and allergies, Endocrine: Negative for neck swelling, polydipsia, polyuria, polyphagia, and marked weight changes, Hematologic/Lymphatic: Negative for swollen nodes, abnormal bleeding, and unusual bruising. 20:24 Back: Positive for pain at rest, flank pain, on the left. Exam: 20:24 Constitutional: This is a well developed, well nourished patient who is awake, alert, mychal and in no acute distress. Head/Face: Normocephalic, atraumatic. Eyes: Pupils equal round and reactive to light, extra-ocular motions intact. Lids and lashes normal. Conjunctiva and sclera are non-icteric and not injected. Cornea within normal limits. Periorbital areas with no swelling, redness, or edema. ENT: Nares patent. No nasal discharge, no septal abnormalities noted. Tympanic membranes are normal and external auditory canals are clear. Oropharynx with no redness, swelling, or masses, exudates, or evidence of obstruction, uvula midline. Mucous membranes moist. Neck: Trachea midline, no thyromegaly or masses palpated, and no cervical lymphadenopathy. Supple, full range of motion without nuchal rigidity, or vertebral point tenderness. No Meningismus. Chest/axilla: Normal chest wall appearance and motion. Nontender with no deformity. No lesions are appreciated. Cardiovascular: Regular rate and rhythm with a normal S1 and S2. No gallops, murmurs, or rubs. Normal PMI, no JVD. No pulse deficits. Respiratory: Lungs have equal breath sounds bilaterally, clear to auscultation and percussion. No rales, rhonchi or wheezes noted. No increased work of breathing, no retractions or nasal flaring. Abdomen/GI: Soft, non-tender, with normal bowel sounds. No distension or tympany. No guarding or rebound. No evidence of tenderness throughout. Male : Normal genitalia with no discharge or lesions. Skin: Warm, dry with normal turgor. Normal color with no rashes, no lesions, and no evidence of cellulitis. MS/ Extremity: Pulses equal, no cyanosis. Neurovascular intact. Full, normal range of motion. Neuro: Awake and alert, GCS 15, oriented to person, place, time, and situation. Cranial nerves II-XII grossly intact. Motor strength 5/5 in all extremities. Sensory grossly intact. Cerebellar exam normal. Normal gait. Psych: Awake, alert, with orientation to person, place and time. Behavior, mood, and affect are within normal limits. 20:24 Back: pain, that is moderate, ROM is normal, normal spinal alignment noted, CVA tenderness, that is mild, is noted on the left, vertebral tenderness, is not appreciated. Vital Signs: 20:00 BP 148 / 95; Pulse 84; Resp 18; Temp 98.7; Pulse Ox 100% on R/A; rv 20:30 BP 131 / 94; Pulse 86; Resp 18; Pulse Ox 100% on R/A; rv 21:00 BP 152 / 103; Pulse 92; Resp 18 S; Pulse Ox 100% on R/A; rv MDM: 19:45 Patient medically screened. [facility] 20:25 Data reviewed: vital signs, nurses notes, lab test result(s), radiologic studies, CT mychal scan. 08/07 19:51 Order name: Basic Metabolic Panel; Complete Time: 20:38 [facility] 08/07 19:51 Order name: CBC with Diff; Complete Time: 20:19 [facility] 08/07 19:51 Order name: Creatinine for Radiology; Complete Time: 20:38 [facility] 08/07 19:51 Order name: Hepatic Function; Complete Time: 20:38 [facility] 08/07 19:51 Order name: Lipase; Complete Time: 20:38 [facility] 08/07 19:51 Order name: Urine Culture [facility] 08/07 19:51 Order name: CT Stone Protocol: with and without contrast; Complete Time: 20:41 [facility] 08/07 20:08 Order name: Urine Dipstick--Ancillary (enter results); Complete Time: 20:19 ar5 08/07 20:46 Order name: Abdomen 1 View (KUB) XRAY [facility] 08/08 06:37 Order name: CBC with Automated Diff EDME 08/08 06:47 Order name: Basic Metabolic Panel [facility] 08/07 19:51 Order name: IV Saline Lock; Complete Time: 21:41 [facility] 08/07 19:51 Order name: Labs collected and sent; Complete Time: 21:41 [facility] 08/07 19:51 Order name: Urine Dipstick-Ancillary (obtain specimen); Complete Time: 21:40 [facility] 08/07 21:18 Order name: EKG; Complete Time: 21:18 [facility] 08/07 21:18 Order name: EKG - Nurse/Tech; Complete Time: 21:55 [facility] Administered Medications: 20:31 Drug: NS 0.9% 500 ml Route: IV; Rate: bolus; Site: left antecubital; rv 21:30 Follow up: IV Status: Completed infusion; IV Intake: 500ml bb 20:39 Drug: morphine 4 mg Route: IVP; Site: left antecubital; rv 21:40 Follow up: Response: Pain is unchanged, physician notified rv 20:39 Drug: Zofran 4 mg Route: IVP; Site: left antecubital; rv 22:48 Follow up: Response: Nausea is decreased rv 21:15 Drug: Flomax 0.4 mg Route: PO; rv 22:48 Follow up: Response: Pain is decreased rv 21:20 Drug: Rocephin - (cefTRIAXone) 1 grams Route: IVPB; Infused Over: 30 mins; Site: left rv antecubital; 21:40 Follow up: IV Status: Completed infusion rv 21:20 Drug: Dilaudid 0.5 mg Route: IVP; Site: left antecubital; rv 22:49 Follow up: Response: Pain is decreased rv 08/08 02:39 Not Given (Physician Discretion): Dilaudid 0.5 mg IVP once bb 07:09 CANCELLED (Physician Discretion): NS 0.9% 1000 ml IV at 125 ml/hr continuous bb Disposition: 08/07/18 20:47 Hospitalization ordered by Poncho Hernández for Observation. Preliminary diagnosis are Hydronephrosis with renal and ureteral calculous obstruction - 7 mm prox , Atrial fibrillation and flutter - hx of. - Bed requested for Telemetry/MedSurg (observation). - Status is Observation. aa5 - Condition is Stable. - Problem is new. - Symptoms have improved. UTI on Admission? No Signatures: Dispatcher [employer] EDME Douglas, Jia, RN RN Jorge Baum MD MD cha Ballard, Brenda, RN RN Sade Anaya RN RN aa5 Brandon Du RN RN rv Corrections: (The following items were deleted from the chart) 08/07 20:56 20:47 Hospitalization Ordered by Poncho Hernández MD for Observation. Preliminary mw diagnosis is Hydronephrosis with renal and ureteral calculous obstruction - 7 mm prox ; Atrial fibrillation and flutter - hx of. Bed requested for Telemetry/MedSurg (observation). Status is Observation. Condition is Stable. Problem is new. Symptoms have improved. UTI on Admission? No. mychal 08/08 05:30 08/07 20:56 08/07/2018 20:47 Hospitalization Ordered by Poncho Hernández MD for mw Observation. Preliminary diagnosis is Hydronephrosis with renal and ureteral calculous obstruction - 7 mm prox ; Atrial fibrillation and flutter - hx of. Bed requested for [facility] ER HOLD. Status is Observation. Condition is Stable. Problem is new. Symptoms have improved. UTI on Admission? No. mw 08/08 07:09 08/07 19:51 NS 0.9% 1000 ml IV at 125 ml/hr continuous ordered. [address] street 08/08 07:09 07:09 NS 0.9% 1000 ml IV at 125 ml/hr continuous ordered. [address] 07:13 05:30 08/07/2018 20:47 Hospitalization Ordered by Poncho Hernández MD for Observation. aa5 Preliminary diagnosis is Hydronephrosis with renal and ureteral calculous obstruction - 7 mm prox ; Atrial fibrillation and flutter - hx of. Bed requested for Telemetry/MedSurg (observation). Status is Observation. Condition is Stable. Problem is new. Symptoms have improved. UTI on Admission? No. mw 07:56 07:13 08/07/2018 20:47 Hospitalization Ordered by Poncho Hernández MD for Observation. aa5 Preliminary diagnosis is Hydronephrosis with renal and ureteral calculous obstruction - 7 mm prox ; Atrial fibrillation and flutter - hx of. Bed requested for Telemetry/MedSurg (observation). Status is Observation. Condition is Stable. Problem is new. Symptoms have improved. UTI on Admission? No. aa5
[2018-08-07] MEDS ORDERED: HYDROMORPHONE HCL 2 MG/ML inj ONE (21:08)
[2018-08-07] MEDS ORDERED: CEFTRIAXONE/SWI 1gm 1 GM/10 ML SYR ONE (21:09)
[2018-08-07] MEDS ORDERED: TAMSULOSIN 0.4 MG SR CAP ONE (21:09)
--- NOTE | 2018-08-07 22:02 | P.HP ---
Certification for Inpatient Patient admitted to: Observation With expected LOS: <2 Midnights Practitioner: I am a practitioner with admitting privileges, knowledge of patient current condition, hospital course, and medical plan of care. Services: Services provided to patient in accordance with Admission requirements found in Title 42 Section 412.3 of the Code of Federal Regulations Patient History Date of Service: 08/07/18 Reason for admission: ureterolithiasis History of Present Illness: Mr Chambers is a 48 years old male with history of HTN, obesity, paroxysmal A.Fib (not anticoagulated, only ASA), who start about 2 days ago with start with left lower back pain, colicky like, radiated to left flank. He denied fever or chills. No nausea or vomiting either. The patient noticed some blood in his urine. He has never had this symptoms in the past. Lab work remarkable for normal WBC count, normal renal function, UA positive for blood. CT abdomen, shows a 7 mm stone in his left ureter, leading with mild hydronephrosis. In ED the patient remain afebrile. Allergies Penicillins Allergy (Mild, Verified 02/22/17 03:35) Rash Home medications list reviewed: Yes Home Medications: Metoprolol Tartrate [Lopressor*] 25 mg PO BID 03/24/13 Multivitamin [Daily Multivitamin] 1 each PO BID 03/24/13 Propafenone HCl [Rythmol Sr] 225 mg PO TID 03/24/13 Doxycycline Hyclate 100 mg PO BID #20 tablet 02/23/17 levoFLOXacin [Levaquin] 500 mg PO DAILY #10 tab 02/23/17 traMADol HCL [Ultram*] 50 mg PO TID PRN #20 tab 02/23/17 - Past Medical/Surgical History Diabetic: No -: Atrial fibrillation -: HTN -: Obstructive sleep apnea -: Obesity -: History of cellulitis -: Gastric bypass 2010 -: Bilateral knee surgeries -: Left knee arthroscopically -: Tonsillectomy Psychosocial/ Personal History: The patient is for 8 years. He has 6 children. 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 - Social History Smoking Status: Never smoker Alcohol use: Yes CD- Drugs: No Caffeine use: Yes Place of Residence: Home Review of Systems 10-point ROS is otherwise unremarkable Physical Examination - Physical Exam General: Alert, In no apparent distress HEENT: Atraumatic, PERRLA, Mucous membr. moist/pink, EOMI, Sclerae nonicteric Neck: Supple, 2+ carotid pulse no bruit, No LAD, Without JVD or thyroid abnormality Respiratory: Clear to auscultation bilaterally, Normal air movement Cardiovascular: Regular rate/rhythm, Normal S1 S2 Gastrointestinal: Normal bowel sounds, Tenderness (left CVA postive ) Musculoskeletal: No tenderness Integumentary: No rashes Neurological: Normal speech, Normal strength at 5/5 x4 extr, Normal tone, Normal affect Lymphatics: No axilla or inguinal lymphadenopathy - Studies Laboratory Data (last 24 hrs) 08/07/18 19:55: Creatinine 1.17 08/07/18 19:55: WBC 9.1, Hgb 14.4, Hct 43.7, Plt Count 205 08/07/18 19:55: Sodium 142, Potassium 4.0, BUN 23 H, Creatinine 1.21, Glucose 127 H, Total Bilirubin 0.7, AST 20, ALT 32, Alkaline Phosphatase 112, Lipase 216 Assessment and Plan - Problems (Diagnosis) (1) Ureterolithiasis Current Visit: Yes Status: Acute (2) Hydronephrosis Current Visit: Yes Status: Acute Qualifiers: Hydronephrosis type: with ureteral calculous obstruction Qualified Code(s) : N13.2 - Hydronephrosis with renal and ureteral calculous obstruction (3) Hypertension Current Visit: No Status: Chronic Qualifiers: Hypertension type: essential hypertension Qualified Code(s): I10 - Essential (primary) hypertension (4) Obesity Onset Date: 02/22/17 Current Visit: No Status: Chronic Qualifiers: Obesity type: unspecified obesity type Obesity classification: unspecified obesity classification - Plan The patient will be admitted to the hospital due to left ureterolithiasis with mild hydronephrosis. Dr Hanson will see the patient in the morning. Planning of lithotripsy in the morning as initial treatment. Continue symptomatic medication. - Advance Directives Does patient have a Living Will: No Does patient have a Durable POA for Healthcare: No - Code Status/Comfort Care Code Status Assessed: Yes Code Status: Full Code
[2018-08-08] MEDS ORDERED: ONDANSETRON 4 MG/2 ML VIAL IV PRN (00:08)
[2018-08-08] MEDS: NA CHLORIDE 0.9% 1,000 ML IV SCH ×2 (00:08→10:08)
[2018-08-08] MEDS ORDERED: ACETAMINOPHEN 500 MG TAB PO PRN (00:08)
[2018-08-08] MEDS: MORPHINE 2 MG/ML SYR IV PRN ×3 (00:49→09:29)
[2018-08-08] MEDS ORDERED: MORPHINE 2 MG/ML SYR ONE (03:56)
[2018-08-08 06:20] LABS: Absolute Lymphocytes (CBC) 1.3 K/uL (0.7-4.9); Absolute Monocytes 1.3 K/uL (0.1-1.3); Absolute Neutrophil 6.8 K/uL (1.8-8.0); Basophils % 0.2 % (0-1.3); Hematocrit 41.5 % (39.6-49.0); Lymphocytes % 13.7 % (15.3-44.8); MPV 8.4 fL (7.6-11.3); Monocytes % 13.8 % (3.3-12.3); RBC Red Blood Cell Count 4.74 M/uL (4.33-5.43)
[2018-08-08 06:46] LABS: Potassium 4.2 mmol/L (3.5-5.1)
[2018-08-08] MEDS ORDERED: NA CHLORIDE 0.9% 1,000 ML ONE (07:25)
--- NOTE | 2018-08-08 07:39 | EKG ---
Test Date: 2018-08-07 Test Time: 21:50:44 Switch Engineer: MEASUREMENT RESULTS: Intervals: Rate: 70 MN: 190 QRSD: 90 QT: 384 QTc: 414 [place]: P: 53 MN: 190 QRS: 18 T: 17 INTERPRETIVE STATEMENTS: Normal sinus rhythm Minimal voltage criteria for LVH, may be normal variant Borderline ECG Compared to ECG 03/23/2018 19:09:44 No significant changes Electronically Signed On 08-08-18 07:27:57 EYE [employer]ASS [employer]AME [employer]ISHER by Ismael Cope
--- NOTE | 2018-08-08 08:18 | RAD REPORT ---
EXAM DESCRIPTION: RAD - Abdomen 1 View (KUB) - 08/07/2018 9:15 pm CLINICAL HISTORY: Abdomen pain. FINDINGS: The bowel gas pattern is unremarkable. 7 millimeter calculus is present within the proximal left ureter adjacent to the left transverse proc ess of L3. Left renal calculi are noted. The known right renal calculus is not clearly seen on this exam.
[2018-08-08] MEDS ORDERED: PROPAFENONE 225 MG CAP PO SCH (09:00)
[2018-08-08] MEDS ORDERED: METOPROLOL TAR 25 MG TAB PO SCH (09:00)
[2018-08-08 10:19] VITALS: BMI 52.4
[2018-08-08] MEDS ORDERED: PROPOFOL 200 MG/20 ML VIAL IV ONE (13:04)
[2018-08-08] MEDS ORDERED: FENTANYL CITR 100 MCG/2 ML ONE (13:04)
[2018-08-08] MEDS ORDERED: LIDOCAINE 2% MPF 5 ML VIAL ONE (13:04)
[2018-08-08] MEDS ORDERED: MIDAZOLAM HCL 2 MG/2 ML INJ ONE (13:04)
[2018-08-08] MEDS ORDERED: GENTAMICIN 100 MG/100 ML BAG 100 ML IV ONE (13:08)
[2018-08-08] MEDS ORDERED: Mastisol Adhesive Liq ONE (14:13)
[2018-08-08] MEDS ORDERED: KETOROLAC 30 MG/ML INJ ONE (14:23)
[2018-08-08 15:03] VITALS: O2SAT 98
--- NOTE | 2018-08-08 15:32 | RAD REPORT ---
EXAM DESCRIPTION: RAD - Cystography - 08/08/2018 2:22 pm CLINICAL HISTORY: Left ureteral calculus. FINDINGS: Twelve fluoroscopic spot images are submitted. Fluoroscopy time 34 seconds. The left ureter was cannulated and contrast administered. Subsequently a left ureteral stent was plac ed. The examination was performed by Dr. Hanson. Please refer to his notes for additional findings.
--- NOTE | 2018-08-08 16:20 | CON ---
PREOP NOTE History Of Present Illness: This is a 48-year-old gentleman, with no previous history of kidney ston e, who was admitted through the ER last night for a 7 mm left proximal ureter with mild hydronephrosi s and intractable pain. The patient has a history of obesity, hypertension, paroxysmal atrial fibril lation, not on anticoagulation, only aspirin. He started to have serious back pain 2 days ago. Tyrone es chills, fever, nausea, or vomiting. He noticed some blood in the urine in the past, may be relate d. The patient is very obese and may not be a good candidate for an ESWL. ER physician told me he h as not been taking any aspirin, so he is not on anticoagulation. Home Medications: Metoprolol, multivitamin, Rythmol, doxycycline, Levaquin, and tramadol. Past Medical History: Atrial fibrillation, hypertension, obstructive sleep apnea, obesity, history o f cellulitis, gastric bypass 2010, bilateral knee surgeries, left knee arthroscopy, and tonsillectomy . Psychosocial: He is for 8 years, has 6 children. 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 Social History: Never smoked. Alcohol, some use. Drug use, none. Caffeine use, yes. [facility]. Review of Systems: Ten-point review of systems essentially unremarkable. Physical Examination: General: The patient was afebrile, stable. He is alert, in no apparent distress. HEENT: Atraumatic and normocephalic. Neck: Supple. No JVD. Respiratory: Clear. Cardiovascular: S1 and S2. Gastrointestinal: Normal bowel sounds. No tenderness. Positive left CVA tenderness. Musculoskeletal: No tenderness. Skin: No rashes. Neurologic: Normal speech. Normal strength. Lymphatics: No axillary lymphadenopathy. Laboratory Data: Revealed creatinine 1.2. White count normal at 9.1, H and H of 14 and 43, platelet count 205. Urinalysis shows pH 6.0, specific gravity greater than 1.030, 3+ blood, nitrite negative , esterase negative. Imaging: Stone protocol CT revealed a 7-mm calculus in the left proximal ureter, resulted in mild hy dronephrosis. Also has bilateral renal calculi measuring 1 to 4 mm. He also has a 6 cm low-density mass off the right kidney, possibly cyst. Also has a periumbilical hernia. KUB shows 7-mm calculus in left proximal ureter at the level of the L3 transverse process. Assessment: A pleasant 48-year-old gentleman, with morbid obesity, with a 7-mm stone in the left pro ximal ureter, but possible may be a poor candidate for an ESWL depending on the skin to stone distanc e. He may just have to put a stent for now and come back later with the ureteroscopy. We will also try to push the stone back into the kidney and see if we can shock it at that time. BETHEL/PREETHI Voice ID: [id number] Report ID: [id number]
--- NOTE | 2018-08-08 16:42 | P.DS ---
Admission Date: 08/07/18 Discharge Date: 08/08/18 Primary Care Provider: Dr. Lai López Disposition: ROUTINE DISCHARGE Discharge Condition: GOOD Reason for Admission: ureterolithiasis Consultations: Urology-Dr. Hanson Procedures: CT scan: COMPARISON: None. TECHNIQUE: Computed axial tomography of the abdomen pelvis was obtained without oral or IV contrast. Lack of IV and oral contrast limits evaluation of solid organs, bowel, and vessels. Coronal reformatted images were obtained and reviewed. All CT scans are performed using dose optimization technique as appropriate and may include automated exposure control or mA/KV adjustment according to patient size. FINDINGS: Bilateral renal calculi are present measuring between 1 and 4 millimeters. Mild left hydronephrosis is present. A 7 millimeter calculus is present within the proximal left ureter Hounsfield unit 1200. A 5.9 centimeter low-density mass extends off of the right kidney. It is nonspecific without IV contrast The liver, spleen, pancreas and adrenals appear grossly normal There is no evidence of diverticulitis. Postsurgical changes involve the stomach A periumbilical hernia contains fat. The neck measures a couple centimeters IMPRESSION: 7 mm calculus in the proximal left ureter resulting in mild left hydronephrosis Urology intervention with placement of Left Ureteral stent Medical Problem List: Left flank pain secondary to 7 mm calculus in the proximal left ureter with mild left hydronephrosis Paroxysmally atrial fibrillation Hypertension Obstructive sleep apnea Obesity, BMI 52.4 Brief History of Present Illness: 48-year-old male presented with left flank pain. Patient found to have 7 mm ureteral stone with hydronephrosis. Patient admitted for further evaluation. Hospital Course: Patient presents with left flank pain secondary to 7 mm calculus in the proximal left ureter with mild left hydronephrosis. Patient was admitted for further evaluation. Urology consulted. Urology intervention was required. Left ureteral stent was placed. At discharge patient will continue with oxybutynin 10 mg daily, Keflex 500 mg daily for 21 days, and tramadol 50 mg 3 times a day as needed for pain. Patient will follow up with urology in 1 week to follow up his care. Patient may require further intervention in the near future. Patient has paroxysmal atrial fibrillation. Patient may continue with his medication Rythmol 225 mg twice daily and metoprolol 25 mg twice daily. Patient to continue to hold aspirin. May restart aspirin once cleared from Urology.. Patient has hypertension. Patient may continue with his medication metoprolol 25 mg 1 pill twice daily. Recommend to maintain blood pressures less 150/80. Further adjustment can be done by his PCP. Patient has obstructive sleep apnea. Patient will continue with CPAP at night. Vital Signs/Physical Exam: Temp Pulse Resp BP Pulse Ox 97.8 F 70 16 135/58 L 100 08/08/18 14:55 08/08/18 14:55 08/08/18 14:55 08/08/18 14:55 08/08/18 12:00 General: Alert, In no apparent distress, Oriented x3, Cooperative HEENT: Atraumatic Neck: Supple Respiratory: Clear to auscultation bilaterally, Normal air movement Cardiovascular: Normal pulses, Regular rate/rhythm Gastrointestinal: Normal bowel sounds, Soft and benign, Non-distended, No rebound, No guarding Musculoskeletal: No erythema, No tenderness, No warmth Integumentary: No tenderness/swelling, No erythema, No warmth, No cyanosis Neurological: Normal speech, Normal strength at 5/5 x4 extr, Normal tone Laboratory Data at Discharge: WBC 9.5 K/uL (4.3-10.9) 08/08/18 06:00 Hgb 14.0 g/dL (13.6-17.9) 08/08/18 06:00 Hct 41.5 % (39.6-49.0) 08/08/18 06:00 Plt Count 197 K/uL (152-406) 08/08/18 06:00 Sodium 141 mmol/L (136-145) 08/08/18 06:00 Potassium 4.2 mmol/L (3.5-5.1) 08/08/18 06:00 BUN 20 mg/dL (7-18) H 08/08/18 06:00 Creatinine 1.13 mg/dL (0.55-1.3) 08/08/18 06:00 Glucose 131 mg/dL (74-106) H 08/08/18 06:00 Total Bilirubin 0.7 mg/dL (0.2-1.0) 08/07/18 19:55 AST 20 U/L (15-37) 08/07/18 19:55 ALT 32 U/L (12-78) 08/07/18 19:55 Alkaline Phosphatase 112 U/L (45-117) 08/07/18 19:55 Lipase 216 U/L (73-393) 08/07/18 19:55 Home Medications: Metoprolol Tartrate [Lopressor*] 25 mg PO BID 03/24/13 Propafenone HCl [Rythmol Sr] 225 mg PO BID 03/24/13 Aspirin [Adult Aspirin] 81 mg PO DAILY 08/08/18 Patient Discharge Instructions: 1. Patient will follow up with his PCP within 1 week to follow up this hospitalization. 2. Patient presents with left flank pain secondary to 7 mm calculus in the proximal left ureter with mild left hydronephrosis. Patient was admitted for further evaluation. Urology consulted. Urology intervention was required. Left ureteral stent was placed. At discharge patient will continue with oxybutynin 10 mg daily, Keflex 500 mg daily for 21 days, and tramadol 50 mg 3 times a day as needed for pain. Patient will follow up with urology in 1 week to follow up his care. Patient may require further intervention in the near future. 3. Patient has paroxysmal atrial fibrillation. Patient may continue with his medication Rythmol 225 mg twice daily and metoprolol 25 mg twice daily. Patient to continue to hold aspirin. May restart aspirin once cleared from Urology. 4. Patient has hypertension. Patient may continue with his medication metoprolol 25 mg 1 pill twice daily. Recommend to maintain blood pressures less 150/80. Further adjustment can be done by his PCP. 5. Patient has obstructive sleep apnea. Patient will continue with CPAP at night. Activity: Ad vel Time spent managing pt's care (in minutes): 55
[2018-08-08 17:23] LABS: Urine Bacteria 20-50 /HPF (NONE SEEN); Urine Culture Reflex Order NOT NEEDED; Urine RBC LOADED /HPF (NONE SEEN)
[2018-08-08 18:50] VITALS: BP 134/67; TEMP 96.8
== END 2018-08-08 18:59 | disposition home or self-care (01) ==
LOC: ER 19:26 → ERHOLD 22:14 → 4TH 08-08 07:45
PROVIDERS: ADMIT Internal Medicine; ATTEND Internal Medicine
PROC: 0WHR8YZ Insertion of Other Device into Genitourinary Tract, Via Natural or Artificial Opening Endoscopic (ICD-10-PCS; 2018-08-08)
PROC: 0T778DZ Dilation of Left Ureter with Intraluminal Device, Via Natural or Artificial Opening Endoscopic (ICD-10-PCS; principal; 2018-08-08 13:45)
DX: N13.2 Hydronephrosis with renal and ureteral calculous obstruction (principal); I48.0 Paroxysmal atrial fibrillation; I10 Essential (primary) hypertension; G47.33 Obstructive sleep apnea (adult) (pediatric); E66.9 Obesity, unspecified; Z68.43 Body mass index [BMI] 50.0-59.9, adult; Z88.0 Allergy status to penicillin; Z98.84 Bariatric surgery status
CPT/HCPCS: 36415; 51600; 74018; 74176; 74430; 76377; 80048; 80076; 81003; 81015; 83690; 85025; 87086; 87088; 93005; 96361; 96365; 96375; 99285; G0378; J0696; J1170; J1580; J2250; J2270; J2405; J2704; J3010; J7030; Q9967

== ENCOUNTER 2019-04-30 08:35 | Emergency (ER) | payer OTHER ==
[2019-04-30 09:45] LABS: Absolute Lymphocytes (CBC) 1.6 K/uL (0.7-4.9); Basophils % 0.5 % (0-1.3); Hematocrit 41.5 % (39.6-49.0); Lymphocytes % 25.5 % (15.3-44.8); MPV 8.6 fL (7.6-11.3); RBC Red Blood Cell Count 4.63 M/uL (4.33-5.43)
--- NOTE | 2019-04-30 09:48 | RAD REPORT ---
EXAM DESCRIPTION: RAD - Chest Single View - 04/30/2019 9:40 am CLINICAL HISTORY: Chest pain;Palpitations Chest pain. COMPARISON: Abdomen 1 View (KUB) dated 08/07/2018; Chest Single View dated 03/23/2018; Chest Single Vie w dated 02/21/2017; CHEST SINGLE VIEW dated 01/02/2015 FINDINGS: Portable technique limits examination quality. The lungs are grossly clear. The heart is upper limit of normal in size. No displaced fractures. IMPRESSION: No acute intrathoracic process suspected.
[2019-04-30 09:51] LABS: BUN Blood Urea Nitrogen 18 mg/dL (7-18); Bicarbonate 29 mmol/L (21-32); Glucose Level 126 mg/dL (74-106); Magnesium 2.2 mg/dL (1.8-2.4); NT PRO-BNP 493 pg/mL (<125); Potassium 4.3 mmol/L (3.5-5.1); Sodium Level 141 mmol/L (136-145); Troponin (Emerg Dept Use Only) < 0.02 ng/mL (0.0-0.045)
--- NOTE | 2019-04-30 11:32 | EDPHYS ---
Physician Documentation [facility] Name: Syed Chambers Age: 49 yrs Sex: Male : 1970 Arrival Date: 04/30/2019 Time: 08:38 Bed 18 Private MD: Lai López ED Physician Dennis Leija HPI: 04/30 09:48 This 49 yrs old Male presents to ER via Ambulatory with complaints of rn palpitations, chest pain. 09:48 The patient presents with a history of irregular heart beat. Context: The symptoms rn occur at rest. Onset: The symptoms/episode began/occurred 4 day(s) ago. Duration: The patient or guardian reports multiple episodes, that are intermittent. Modifying factors: The symptoms are aggravated by strenuous activity, The symptoms are alleviated by nothing. Associated signs and symptoms: Pertinent positives: chest pain, Pertinent negatives: cough, fever, SOB, syncope, vertigo, vomiting. Severity of symptoms: At their worst the symptoms were mild in the emergency department the symptoms are unchanged. The patient has experienced similar episodes in the past. Reports diagnosed with afib 10-12 years ago, takes propafenone and metoprolol, no missed doses, recently taking pre-workout stimulant and energy drinks. Reports hasn't felt well since when presented to other ER with HR in 200s, got medicated, neg w/u, so sent home. Reports no longer going fast but feels irregular. NO syncope/sob. Reports worse with exertion. . Historical: - Allergies: 08:59 PENICILLINS; ss - Home Meds: 08:59 aspirin 81 mg Oral tab 1 tab once daily [Active]; metoprolol tartrate 25 mg Oral tab 1 ss tab 2 times per day [Active]; propafenone 225 mg Oral tab 1 tab every 8 hours [Active]; - PMHx: 08:59 Atrial Fib; Hypertension; ss - PSHx: 08:59 Knee surgery; ss - Immunization history:: Adult Immunizations up to date. - Social history:: Smoking status: Patient/guardian denies using tobacco. - Ebola Screening: : Patient denies exposure to infectious person Patient denies travel to an Ebola-affected area in the 21 days before illness onset. - Family history:: not pertinent. - Hospitalizations: : No recent hospitalization is reported. ROS: 09:48 Constitutional: Negative for fever, chills, and weight loss, Eyes: Negative for injury, rn pain, redness, and discharge, Neck: Negative for injury, pain, and swelling, Cardiovascular: Negative for edema Respiratory: Negative for shortness of breath, cough, wheezing, and pleuritic chest pain, Abdomen/GI: Negative for abdominal pain, nausea, vomiting, diarrhea, and constipation, MS/Extremity: Negative for injury and deformity, Skin: Negative for injury, rash, and discoloration, Neuro: Negative for headache, weakness, numbness, tingling, and seizure. Exam: 09:48 Constitutional: This is a well developed, well nourished patient who is awake, alert, rn and in no acute distress. Head/Face: Normocephalic, atraumatic. Eyes: Pupils equal round and reactive to light, extra-ocular motions intact. Lids and lashes normal. Conjunctiva and sclera are non-icteric and not injected. Cornea within normal limits. Periorbital areas with no swelling, redness, or edema. ENT: MMM Cardiovascular: Regular rate, Irregular rhythm Respiratory: No increased work of breathing, no retractions or nasal flaring. Abdomen/GI: soft, non-tender MS/ Extremity: Pulses equal, no cyanosis. Neurovascular intact. Full, normal range of motion. Equal circumference. Neuro: Awake and alert, GCS 15, oriented to person, place, time, and situation. Cranial nerves II-XII grossly intact. Motor strength 5/5 in all extremities. Sensory grossly intact. Cerebellar exam normal. Vital Signs: 08:54 BP 115 / 62; Pulse 76; Resp 17; Temp 97.8(TE); Pulse Ox 97% on R/A; Weight 158.76 kg; ss Height 5 ft. 8 in. (172.72 cm); Pain 3/10; 10:00 BP 101 / 74; Pulse 70; Resp 16 S; Pulse Ox 98% on R/A; ca1 11:00 BP 118 / 83; Pulse 67; Resp 16 S; Pulse Ox 100% on R/A; ca1 08:54 Body Mass Index 53.22 (158.76 kg, 172.72 cm) ss MDM: 08:40 Patient medically screened. rn 11:09 ED course: Patient still feels well, occasional irregular heart beat sensation, no rn chest pain/sob. Still irregular on monitor but rate controlled, normal BP. Already on metoprolol and propafenone, as well as aspirin. Sent ECG to Dr. Andrade in [place] for f/u appt. Recommended cessation of stimulants. . 11:29 Differential diagnosis: arrythmia, dehydration, stress disorder. Data reviewed: vital rn signs, nurses notes, lab test result(s), EKG, radiologic studies, plain films, I have discussed the patient's presentation/case with the attending Emergency Department Physician; and as a result, I will discharge patient. Counseling: I had a detailed discussion with the patient and/or guardian regarding: the historical points, exam findings, and any diagnostic results supporting the discharge/admit diagnosis, lab results, radiology results, the need for outpatient follow up, to return to the emergency department if symptoms worsen or persist or if there are any questions or concerns that arise at home. Response to treatment: the patient's symptoms have mildly improved after treatment, and as a result, I will discharge patient. ED course: Contacted Dr. Cheema in [place], his staff is going to call patient to schedule appointment. Currently stable atrial flutter, rate controlled, without signs or labs to indicate ischemia. On anti-arrhythmic medication, return precautions given and understood. . 04/30 09:14 Order name: Basic Metabolic Panel; Complete Time: :53 rn 04/30 09:14 Order name: CBC with Diff; Complete Time: 10: rn 04/30 09:14 Order name: Magnesium; Complete Time: : rn 04/30 09:14 Order name: NT PRO-BNP; Complete Time: : rn 04/30 09:14 Order name: Troponin (emerg Dept Use Only); Complete Time: :53 rn 04/30 09:14 Order name: XRAY Chest (1 view); Complete Time: :53 rn 04/30 09:10 Order name: EKG Electrocardiogram; Complete Time: 09:47 EDMS 04/30 09:14 Order name: EKG; Complete Time: 09:15 rn 04/30 09:14 Order name: Cardiac monitoring; Complete Time: 09:18 rn 04/30 09:14 Order name: EKG - Nurse/Tech; Complete Time: 09:18 rn 04/30 09:14 Order name: IV Saline Lock; Complete Time: 09:26 rn 04/30 09:14 Order name: Labs collected and sent; Complete Time: rn 04/30 09:14 Order name: O2 Per Protocol; Complete Time: rn 04/30 09:14 Order name: O2 Sat Monitoring; Complete Time: rn Administered Medications: No medications were administered Disposition: 04/30/19 11:31 Discharged to Home. Impression: Unspecified atrial flutter. - Condition is Stable. - Discharge Instructions: Atrial Flutter. - Medication Reconciliation Form, Thank You Letter, Antibiotic Education, Prescription Opioid Use form. - Follow up: Private Physician; When: As needed; Reason: Recheck today's complaints, Re-evaluation by your physician. - Problem is an ongoing problem. - Symptoms have improved. Signatures: Dispatcher [employer] EDMS Dennis Leija MD MD rn Radha Denise RN RN ss Bing Roque RN RN ca1 Corrections: (The following items were deleted from the chart) 11:38 11:31 04/30/2019 11:31 Discharged to Home. Impression: Unspecified atrial flutter. ca1 Condition is Stable. Forms are Medication Reconciliation Form, Thank You Letter, Antibiotic Education, Prescription Opioid Use. Follow up: Private Physician; When: As needed; Reason: Recheck today's complaints, Re-evaluation by your physician. Problem is an ongoing problem. Symptoms have improved. rn
--- NOTE | 2019-04-30 11:32 | ER ---
Nurse's Notes [facility] Name: Syed Chambers Age: 49 yrs Sex: Male : 1970 Arrival Date: 04/30/2019 Time: 08:38 Bed 18 Private MD: Lai López Diagnosis: Unspecified atrial flutter Presentation: 04/30 08:55 Presenting complaint: Patient states: History of AFIB. Patient reports it has been ss years since he has been in Afib until last . Patient was seen in [place] ER and treated for Afib with RVR. Since that visit, patient reports he has not been feeling well and has had L sided chest pressure, headache and nausea since this morning. Transition of care: patient was not received from another setting of care. Onset of symptoms is unknown. Risk Assessment: Do you want to hurt yourself or someone else? Patient reports no desire to harm self or others. Initial Sepsis Screen: Does the patient meet any 2 criteria? No. Patient's initial sepsis screen is negative. Does the patient have a suspected source of infection? No. Patient's initial sepsis screen is negative. Care prior to arrival: None. 08:55 Method Of Arrival: Ambulatory ss 08:55 Acuity: MATT 3 ss Historical: - Allergies: 08:59 PENICILLINS; ss - Home Meds: 08:59 aspirin 81 mg Oral tab 1 tab once daily [Active]; metoprolol tartrate 25 mg Oral tab 1 ss tab 2 times per day [Active]; propafenone 225 mg Oral tab 1 tab every 8 hours [Active]; - PMHx: 08:59 Atrial Fib; Hypertension; ss - PSHx: 08:59 Knee surgery; ss - Immunization history:: Adult Immunizations up to date. - Social history:: Smoking status: Patient/guardian denies using tobacco. - Ebola Screening: : Patient denies exposure to infectious person Patient denies travel to an Ebola-affected area in the 21 days before illness onset. - Family history:: not pertinent. - Hospitalizations: : No recent hospitalization is reported. Screenin:14 Abuse screen: Denies threats or abuse. Denies injuries from another. Nutritional ca1 screening: No deficits noted. Tuberculosis screening: No symptoms or risk factors identified. Fall Risk IV access (20 points). Assessment: 09:14 General: Appears in no apparent distress. comfortable, Behavior is calm, cooperative, ca1 appropriate for age, Reports feeling ill for > 3 days. Pain: Complains of pain in anterior aspect of left upper chest Pain currently is 4 out of 10 on a pain scale. Quality of pain is described as discomfort Pain began 4 hours ago. Is intermittent. Neuro: Level of Consciousness is awake, alert, obeys commands, Oriented to person, place, time, situation. Cardiovascular: Heart tones S1 S2 present Capillary refill < 3 seconds Patient's skin is warm and dry. Rhythm is atrial fibrillation. Respiratory: Airway is patent Respiratory effort is even, unlabored, Respiratory pattern is regular, symmetrical, Breath sounds are clear bilaterally. GI: Abdomen is round non-distended, Bowel sounds present X 4 quads. Abd is soft and non tender X 4 quads. Reports nausea. : No deficits noted. No signs and/or symptoms were reported regarding the genitourinary system. EENT: No deficits noted. No signs and/or symptoms were reported regarding the EENT system. Derm: Skin is intact, is healthy with good turgor, Skin is pink, warm \T\ dry. Musculoskeletal: Circulation, motion, and sensation intact. Capillary refill < 3 seconds, Range of motion: intact in all extremities. 09:35 Reassessment: X-ray at bedside. ca1 10:15 Reassessment: Patient appears in no apparent distress at this time. Patient and/or ca1 family updated on plan of care and expected duration. Pain level reassessed. Patient is alert, oriented x 3, equal unlabored respirations, skin warm/dry/pink. 11:22 Reassessment: Patient appears in no apparent distress at this time. Patient and/or ca1 family updated on plan of care and expected duration. Pain level reassessed. Patient is alert, oriented x 3, equal unlabored respirations, skin warm/dry/pink. Vital Signs: 08:54 BP 115 / 62; Pulse 76; Resp 17; Temp 97.8(TE); Pulse Ox 97% on R/A; Weight 158.76 kg; ss Height 5 ft. 8 in. (172.72 cm); Pain 3/10; 10:00 BP 101 / 74; Pulse 70; Resp 16 S; Pulse Ox 98% on R/A; ca1 11:00 BP 118 / 83; Pulse 67; Resp 16 S; Pulse Ox 100% on R/A; ca1 08:54 Body Mass Index 53.22 (158.76 kg, 172.72 cm) ED Course: 08:38 Patient arrived in ED. mr 08:39 Lai López DO is Private Physician. mr 08:40 Dennis Leija MD is Attending Physician. rn 08:52 Bing Roque, JAQUELIN is Primary Nurse. ca1 08:54 Arm band placed on right wrist. ss 08:59 Triage completed. ss 09:07 EKG done, by photographic laboratory technician. reviewed by Dennis Leija MD. tc 09:14 Patient has correct armband on for positive identification. Placed in gown. Bed in low ca1 position. Call light in reach. Side rails up X 1. ekg monitor tech on. Pulse ox on. NIBP on. Warm blanket given. 09:14 No provider procedures requiring assistance completed. ca1 09:26 Initial lab(s) drawn, by wi, sent to lab. Inserted saline lock: 20 gauge in right ca1 antecubital area, using aseptic technique. Blood collected. 09:40 XRAY Chest (1 view) In Process Unspecified. EDMS 11:38 IV discontinued, intact, bleeding controlled, No redness/swelling at site. Pressure ca1 dressing applied. Administered Medications: No medications were administered Outcome: 11:31 Discharge ordered by . rn 11:38 Discharged to home ambulatory. ca1 11:38 Condition: stable 11:38 Discharge instructions given to patient, Instructed on discharge instructions, follow up and referral plans. Demonstrated understanding of instructions, follow-up care. 11:38 Patient left the ED. ca1 Signatures: Dispatcher [employer] EDOR Tricia Emanuel mr Dennis Leija MD MD rn Smirch, Shelby, RN RN Fidelia Aparicio, nc machinist EKG Ttc Bing Roque RN RN ca1 Corrections: (The following items were deleted from the chart) 09:32 09:14 Cardiovascular: Heart tones S1 S2 present Capillary refill < 3 seconds Patient's ca1 skin is warm and dry. Rhythm is sinus rhythm ca1
--- NOTE | 2019-04-30 11:36 | EKG ---
Test Date: 2019-04-30 Test Time: 09:01:00 Print Machine Operator: [facility] MEASUREMENT RESULTS: Intervals: Rate: 63 CA: QRSD: 84 QT: 376 QTc: 384 Orick: P: 29 CA: QRS: 32 T: 31 INTERPRETIVE STATEMENTS: Atrial flutter with variable AV block Abnormal ECG Compared to ECG 04/30/2019 09:00:21 Sinus rhythm no longer present Sinus arrhythmia no longer present Electronically Signed On 04-30-19 11:36:11 CDT by Ismael Cope
--- NOTE | 2019-04-30 11:37 | EKG ---
Test Date: 2019-04-30 Test Time: 09:00:21 Chemical Compounder: [facility] MEASUREMENT RESULTS: Intervals: Rate: 69 MN: 158 QRSD: 86 QT: 388 QTc: 415 Jarrell: P: 66 MN: 158 QRS: 42 T: 40 INTERPRETIVE STATEMENTS: Atrial flutter with variable AV block Otherwise normal ECG Compared to ECG 08/07/2018 21:50:44 Sinus rhythm is no longer present Electronically Signed On 04-30-19 11:37:02 CDT by Ismael Cope
[2019-04-30 11:50] VITALS: TEMP 97.8
[2019-04-30 11:53] VITALS: BP 118/83; O2SAT 100
== END 2019-04-30 11:38 | disposition home or self-care (01) ==
LOC: ER 08:35
DX: I48.91 Unspecified atrial fibrillation (principal); I10 Essential (primary) hypertension; Z88.0 Allergy status to penicillin
CPT/HCPCS: 36415; 71045; 80048; 83735; 83880; 84484; 85025; 93005; 99284

== ENCOUNTER 2019-12-31 07:53 | Emergency (ER) | payer OTHER ==
[2019-12-31 09:05] LABS: Absolute Lymphocytes (CBC) 1.3 K/uL (0.7-4.9); Basophils % 0.4 % (0-1.3); Hematocrit 45.8 % (39.6-49.0); Lymphocytes % 16.9 % (15.3-44.8); MPV 8.2 fL (7.6-11.3); RBC Red Blood Cell Count 5.03 M/uL (4.33-5.43)
[2019-12-31] MEDS ORDERED: NA CHLORIDE 0.9% 500 ML ONE (09:05)
--- NOTE | 2019-12-31 09:10 | RAD REPORT ---
EXAM DESCRIPTION: RAD - Chest Single View - 12/31/2019 9:01 am CLINICAL HISTORY: COUGH Chest pain. COMPARISON: Chest Single View dated 04/30/2019; Abdomen 1 View (KUB) dated 08/07/2018; Chest Single Vi ew dated 03/23/2018; Chest Single View dated 02/21/2017 FINDINGS: Portable technique limits examination quality. The lungs are grossly clear. The heart is upper limit of normal in size. No displaced fractures. IMPRESSION: No acute intrathoracic process suspected.
--- NOTE | 2019-12-31 09:11 | RAD REPORT ---
EXAM DESCRIPTION: CT - Head Brain Wo Cont - 12/31/2019 9:03 am CLINICAL HISTORY: DIZZINESS Headache, drowsiness COMPARISON: CT-STROKE BRAIN W/O CONTRAST dated 01/02/2015 TECHNIQUE: All CT scans are performed using dose optimization technique as appropriate and may inclu de automated exposure control or mA/KV adjustment according to patient size. FINDINGS: No intracranial hemorrhage, hydrocephalus or extra-axial fluid collection.No areas of brai n edema or evidence of midline shift. The paranasal sinuses and mastoids are clear. The calvarium is intact. IMPRESSION: No acute intracranial abnormality.
[2019-12-31 09:28] LABS: ALT/SGPT 44 U/L (12-78); AST/SGOT 25 U/L (15-37); Albumin 3.5 g/dL (3.4-5.0); Alkaline Phosphatase 112 U/L (45-117); BUN Blood Urea Nitrogen 13 mg/dL (7-18); Bicarbonate 27 mmol/L (21-32); Bilirubin Total 0.6 mg/dL (0.2-1.0); Glucose Level 129 mg/dL (74-106); Potassium 4.1 mmol/L (3.5-5.1); Protein, Total 7.2 g/dL (6.4-8.2); Sodium Level 141 mmol/L (136-145); Troponin (Emerg Dept Use Only) < 0.02 ng/mL (0.0-0.045)
--- NOTE | 2019-12-31 09:46 | ER ---
Nurse's Notes [facility] Name: Syed Chambers Age: 49 yrs Sex: Male : 1970 Arrival Date: 12/31/2019 Time: 07:56 Bed 8 Private MD: Lai López Diagnosis: Headache;Dizziness and giddiness Presentation: 12/30 08:05 Chief complaint: Patient states: Nausea, headache and dizziness that has been off and ss on for approximately 1-2 months. Pt reports it is just becoming more consistant now. Coronavirus screen: Proceed with normal triage. Patient denies a cough. Patient denies shortness of breath or difficulty breathing. Patient denies measured and/or subjective temperature greater than 100.4F prior to today's visit. Patient denies travel on a cruise ship or to a country the [facility] currently lists as an affected area. Patient denies contact with known and/or suspected case of COVID-19. Ebola Screen: Patient denies exposure to infectious person. Patient denies travel to an Ebola-affected area in the 21 days before illness onset. Initial Sepsis Screen: Does the patient meet any 2 criteria? No. Patient's initial sepsis screen is negative. Does the patient have a suspected source of infection? No. Patient's initial sepsis screen is negative. Risk Assessment: Do you want to hurt yourself or someone else? Patient reports no desire to harm self or others. Onset of symptoms was November 2019. 08:05 Method Of Arrival: Ambulatory ss 08:05 Acuity: MATT 3 ss Triage Assessment: 08:10 General: Appears in no apparent distress. comfortable, obese, Behavior is calm, bp cooperative, appropriate for age. Pain: Complains of pain in forehead. EENT: No deficits noted. Neuro: Reports dizziness, headache. Cardiovascular: Rhythm is sinus rhythm. Respiratory: No deficits noted. GI: Reports nausea. : No signs and/or symptoms were reported regarding the genitourinary system. Derm: No deficits noted. Musculoskeletal: No deficits noted. Historical: - Allergies: 08:07 PENICILLINS; ss - PMHx: 08:07 Atrial Fib; Hypertension; ss - PSHx: 08:07 Knee surgery; ss - Immunization history:: Adult Immunizations up to date. - Social history:: Smoking status: Patient denies any tobacco usage or history of. - Family history:: not pertinent. Screenin:10 Abuse screen: Denies threats or abuse. Denies injuries from another. Nutritional bp screening: No deficits noted. Tuberculosis screening: No symptoms or risk factors identified. Fall Risk None identified. Assessment: 08:10 General: SEE TRIAGE NOTE. GI: Abdomen is non-distended, obese. bp 09:00 Reassessment: Patient appears in no apparent distress at this time. Patient and/or iw family updated on plan of care and expected duration. Pain level reassessed. Patient is alert, oriented x 3, equal unlabored respirations, skin warm/dry/pink. Vital Signs: 08:05 BP 142 / 92; Pulse 88; Resp 16; Temp 97.9(TE); Pulse Ox 97% on R/A; Weight 158.76 kg; ss Height 5 ft. 8 in. (172.72 cm); Pain 0/10; 08:05 Body Mass Index 53.22 (158.76 kg, 172.72 cm) ss [place] Coma Score: 09:40 Eye Response: spontaneous(4). Verbal Response: oriented(5). Motor Response: obeys mychal commands(6). Total: 15. ED Course: 07:56 Patient arrived in ED. mr 07:56 Lai López DO is Private Physician. mr 07:59 Jorge Gar MD is Attending Physician. mychal 07:59 Trevor Velarde, RN is Primary Nurse. bp 08:07 Triage completed. ss 08:07 Arm band placed on right wrist. ss 08:10 Patient has correct armband on for positive identification. Bed in low position. Call bp light in reach. Side rails up X2. Adult w/ patient. 09:00 Chest Single View XRAY In Process Unspecified. EDMS 09:03 CT Head Brain wo Cont In Process Unspecified. EDMS 09:06 Initial lab(s) drawn, by me, sent to lab. Inserted saline lock: 20 gauge in right iw antecubital area, using aseptic technique. 09:44 Lai López DO is Referral Physician. mychal 10:05 No provider procedures requiring assistance completed. IV discontinued, intact, iw bleeding controlled, No redness/swelling at site. Pressure dressing applied. Administered Medications: 09:25 Drug: NS 0.9% 500 ml Route: IV; Rate: bolus; Site: right antecubital; iw Outcome: 09:44 Discharge ordered by . mychal 10:05 Discharged to home ambulatory, with family. iw 10:05 Condition: good 10:05 Discharge instructions given to patient, family, Instructed on discharge instructions, follow up and referral plans. medication usage, Demonstrated understanding of instructions, follow-up care, medications, Prescriptions given X 2. 10:06 Patient left the ED. iw Signatures: Dispatcher [employer] EDMS Jorge Gar MD MD cha Rivera, Mary mr Williams, Irene, Radha Pruett RN, RN RN Trevor Velarde RN RN bp
--- NOTE | 2019-12-31 09:46 | EDPHYS ---
Physician Documentation [facility] Name: Syed Chambers Age: 49 yrs Sex: Male : 1970 Arrival Date: 12/31/2019 Time: 07:56 Bed 8 Private MD: Rene [facility] ED Physician Jorge Gar HPI: 12/30 08:51 This 49 yrs old Male presents to ER via Ambulatory with complaints of Nausea, mychal Headache, Dizziness. 08:52 The patient presents to the emergency department with nausea. Onset: The mychal symptoms/episode began/occurred 30 day(s) ago. Possible causes: unknown. The symptoms are aggravated by nothing. The symptoms are alleviated by nothing. The patient presents with dizziness. Context: occurred at an unknown location. Modifying factors: The symptoms are alleviated by nothing, the symptoms are aggravated by nothing. Associated signs and symptoms: Pertinent positives: confusion, tingling. Associated signs and symptoms: The patient has no apparent associated signs or symptoms. 08:55 The patient complains of pain to the forehead, left frontal area and right frontal mychal area. The patient describes the headache as aching. Onset: The symptoms/episode began/occurred 1 month(s) ago. Historical: - Allergies: 08:07 PENICILLINS; ss - PMHx: 08:07 Atrial Fib; Hypertension; ss - PSHx: 08:07 Knee surgery; ss - Immunization history:: Adult Immunizations up to date. - Social history:: Smoking status: Patient denies any tobacco usage or history of. - Family history:: not pertinent. ROS: 08:52 Constitutional: Negative for fever, chills, and weight loss, Eyes: Negative for injury, mychal pain, redness, and discharge, ENT: Negative for injury, pain, and discharge, Neck: Negative for injury, pain, and swelling, Cardiovascular: Negative for chest pain, palpitations, and edema, Respiratory: Negative for shortness of breath, cough, wheezing, and pleuritic chest pain, Abdomen/GI: Negative for abdominal pain, nausea, vomiting, diarrhea, and constipation, Back: Negative for injury and pain, : Negative for injury, bleeding, discharge, and swelling, MS/Extremity: Negative for injury and deformity, Skin: Negative for injury, rash, and discoloration, Psych: Negative for depression, anxiety, suicide ideation, homicidal ideation, and hallucinations, Allergy/Immunology: Negative for hives, rash, and allergies, Endocrine: Negative for neck swelling, polydipsia, polyuria, polyphagia, and marked weight changes, Hematologic/Lymphatic: Negative for swollen nodes, abnormal bleeding, and unusual bruising. 08:52 Neuro: Positive for dizziness. Exam: 08:52 Constitutional: This is a well developed, well nourished patient who is awake, alert, mychal and in no acute distress. Head/Face: Normocephalic, atraumatic. Eyes: Pupils equal round and reactive to light, extra-ocular motions intact. Lids and lashes normal. Conjunctiva and sclera are non-icteric and not injected. Cornea within normal limits. Periorbital areas with no swelling, redness, or edema. ENT: Nares patent. No nasal discharge, no septal abnormalities noted. Tympanic membranes are normal and external auditory canals are clear. Oropharynx with no redness, swelling, or masses, exudates, or evidence of obstruction, uvula midline. Mucous membranes moist. Neck: Trachea midline, no thyromegaly or masses palpated, and no cervical lymphadenopathy. Supple, full range of motion without nuchal rigidity, or vertebral point tenderness. No Meningismus. Chest/axilla: Normal chest wall appearance and motion. Nontender with no deformity. No lesions are appreciated. Cardiovascular: Regular rate and rhythm with a normal S1 and S2. No gallops, murmurs, or rubs. Normal PMI, no JVD. No pulse deficits. Respiratory: Lungs have equal breath sounds bilaterally, clear to auscultation and percussion. No rales, rhonchi or wheezes noted. No increased work of breathing, no retractions or nasal flaring. Abdomen/GI: Soft, non-tender, with normal bowel sounds. No distension or tympany. No guarding or rebound. No evidence of tenderness throughout. Back: No spinal tenderness. No costovertebral tenderness. Full range of motion. Male : Normal genitalia with no discharge or lesions. Skin: Warm, dry with normal turgor. Normal color with no rashes, no lesions, and no evidence of cellulitis. MS/ Extremity: Pulses equal, no cyanosis. Neurovascular intact. Full, normal range of motion. Neuro: Awake and alert, GCS 15, oriented to person, place, time, and situation. Cranial nerves II-XII grossly intact. Motor strength 5/5 in all extremities. Sensory grossly intact. Cerebellar exam normal. Normal gait. Psych: Awake, alert, with orientation to person, place and time. Behavior, mood, and affect are within normal limits. 09:02 Neck: ROM/movement: is normal, no acute changes, Lymph nodes: no appreciated [facility] lymphadenopathy. 09:02 Chest/axilla: Exam negative for acute changes. 09:45 ECG was reviewed by the Attending Physician. [facility] Vital Signs: 08:05 BP 142 / 92; Pulse 88; Resp 16; Temp 97.9(TE); Pulse Ox 97% on R/A; Weight 158.76 kg; ss Height 5 ft. 8 in. (172.72 cm); Pain 0/10; 08:05 Body Mass Index 53.22 (158.76 kg, 172.72 cm) ss [place] Coma Score: 09:40 Eye Response: spontaneous(4). Verbal Response: oriented(5). Motor Response: obeys [facility] commands(6). Total: 15. MDM: 07:59 Patient medically screened. [facility] 08:54 Data reviewed: vital signs, nurses notes, lab test result(s), EKG, radiologic studies, [facility] CT scan, plain films. 09:40 Differential diagnosis: cluster headache. Differential diagnosis: cardiac arrhythmia, mychal generalized weakness, idiopathic dizziness, near-syncope, TIA, vertigo. Data interpreted: monitoring specialist: rate is 88 beats/min, rhythm is normal sinus rhythm, Pulse oximetry: on room air is 97 %. Test interpretation: by ED physician or midlevel provider: ECG, plain radiologic studies. Counseling: I had a detailed discussion with the patient and/or guardian regarding: the historical points, exam findings, and any diagnostic results supporting the discharge/admit diagnosis, lab results, radiology results. 12/30 08:50 Order name: CBC with Diff; Complete Time: 09:43 [facility] 12/30 08:50 Order name: Comprehensive Metabolic Panel; Complete Time: 09:43 [facility] 12/30 08:50 Order name: CT Head Brain wo Cont; Complete Time: 09:43 [facility] 12/30 08:50 Order name: Troponin (emerg Dept Use Only); Complete Time: 09:43 [facility] 12/30 08:50 Order name: Chest Single View XRAY; Complete Time: 09:43 [facility] 12/30 08:50 Order name: EKG; Complete Time: 08:51 [facility] 12/30 08:50 Order name: EKG - Nurse/Tech; Complete Time: [facility] EC:45 Rate is 81 beats/min. Rhythm is regular. QRS [place] is Normal. DE interval is normal. QRS mychal interval is normal. QT interval is normal. No Q waves. T waves are Normal. No ST changes noted. Clinical impression: Normal ECG and No evidence of ischemia. Interpreted by me. Reviewed by me. Administered Medications: Drug: NS 0.9% 500 ml Route: IV; Rate: bolus; Site: right antecubital; iw Disposition: 12/31/19 09:44 Discharged to Home. Impression: Headache, Dizziness and giddiness. - Condition is Stable. - Discharge Instructions: Benign Positional Vertigo, Dizziness, General Headache Without Cause, Aspirin and Your Heart, General Headache Without Cause, [id number], Dizziness, [id number]. - Prescriptions for Meclizine 25 mg Oral Tablet - take 1 tablet by ORAL route every 8 hours As needed; 30 tablet. Zofran 4 mg Oral Tablet - take 1 tablet by ORAL route every 12 hours As needed; 20 tablet. - Medication Reconciliation Form, Thank You Letter, Antibiotic Education, Prescription Opioid Use, Work release form form. - Follow up: Lai López DO; When: 2 - 3 days; Reason: Recheck today's complaints, Continuance of care, Re-evaluation by your physician. - Problem is new. - Symptoms have improved. Signatures: Dispatcher [employer] EDRI Jorge Gar MD MD cha Williams, Irene, Radha Pruett RN, RN RN ss Corrections: (The following items were deleted from the chart) 10:06 09:44 12/31/2019 09:44 Discharged to Home. Impression: Headache; Dizziness and iw giddiness. Condition is Stable. Forms are Medication Reconciliation Form, Thank You Letter, Antibiotic Education, Prescription Opioid Use. Follow up: Lai López; When: 2 - 3 days; Reason: Recheck today's complaints, Continuance of care, Re-evaluation by your physician. Problem is new. Symptoms have improved. [facility]
--- OUTSIDE RECORDS SUMMARY | 2019-12-31 09:57 | XMS REPORT | Clinical Summary ---
:1970 Author Organization [facility] Address [address] [place] [address] Care Team Providers Name Role Phone Unavailable Primary Care Provider Unavailable Allergies Active Allergy Reactions Severity Noted Date Comments Iodine Itching Medium 05/21/2019 Face flushed, e rythmic areas on forehead, chest Penicillins Rash Medium 05/18/2019 Medications No known medications Active Problems Not on file Encounters Date Type Specialty Care Team Description 05/17/2019 Transcribe Orders Procedural Deni, Nadim Chest pain , unspecified type (Primary Dx); Cardiology MD Nini Abnormal cardio vascular stress test after 12/30/2018 Social History Tobacco Use Types Packs/Day Years Used Date Never Assessed Sex Assigned at Date Recorded Not on file Job Start Date Occupation Industry Not on file Not on file Not on file Travel History Travel Start Travel End No recent travel history available. Last Filed Vital Signs Vital Sign Reading Time Taken Comments Blood Pressure 129/63 05/21/2019 2:23 PM [employer] Pulse 61 05/21/2019 2:23 PM [employer] Temperature - - Respiratory Rate 18 05/21/2019 1:57 PM [employer] Oxygen Saturation - - Inhaled Oxygen Concentration - - Weight 161 kg (355 lb) 05/21/2019 1:53 PM [employer] Height 172.7 cm (5' 8") 05/21/2019 1:53 PM [employer] Body Mass Index 53.98 05/21/2019 1:53 PM [employer] [facility] Plan of Treatment Health Maintenance Due Date Last Done Comments INFLUENZA VACCINE 02/02/2020 Procedures Procedure Name Priority Date/Time Associated Diagnosis Comme nts CV CTA CORONARY Routine 05/21/2019 2:42 Chest pain, Results for this ARTERIES W CONTRAST PM [employer] unspecified type procedure are in Abnormal the results cardiovascular stress sectio n. test ESTIMATED GFR Routine 05/21/2019 1:51 Results fo r this PM [employer] procedure are i n the results section. POC CREATININE Routine 05/21/2019 1:51 Results f or this PM [employer] procedure are i n the results section. after 12/30/2018 Results Cv cta coronary arteries w contrast and ffr if needed (05/21/2019 2:42 PM [employer]) Specimen Narrative Performed At This result has an attachment that is no t available. [facility] Nuclear Cardiology and Card iac CT [address] [address] [address] Chest with Contrast R eport Pat.Name: EMERSON ALMODOVAR Pat.ID: [id number] .Date: 05/21/2019 Refer.MD: MCKAY EDWARDS MD Exam Time: 1:30:00 PM Study Type:C T Chest W Contrast Height: 68in BSA: 2.61 m2 Age: 9 1970,49Y Sex: MALE BP: 142/91 HR: 60 bpm Nuclear Tech:RT Ilene(R)(CT) Pat. Stat.:Outpatient Tape Vol: 53.98, CPT - 4: AFIB w Coronary [id number] Nuclear Event ID:[id number] Order ID: [id number] Reason for Study:Atrial fibrillation ablation procedur e Procedures: CT Flash mode SUMMARY: Technique: IV contrast was administered and sequential 0.[address] cuts were obtained through the chest using the Siemens vidIQom Force CT scanner. Image post-processing consisting of multiplan ar and 3D reconstructions were performed using the [employer] workstation. Interactive image viewing, volumetric dis play, and analysis were also performed. CTA RESULTS Left Main: A long 4.6 mm artery which arises normally from the left sinus of Valsalva and divides into the left anterior descending and circumflex coronary arteries. No significant atherosclerotic plaq ue is present. Left anterior descending (LAD): A normal sized 4.4 mm artery which wraps around the ap ex and gives off two diagonal branches. No significant atherosclerotic plaque is present but the mid segment is not optimally assessed due to motion artifact. The first diagonal is a 1.5 mm artery which has no sig nificant atherosclerotic plaque. The second diagonal is a 2.0 mm artery which has no si gnificant atherosclerotic plaque. Left circumflex: A normal sized 4.2 mm non-dominant artery which gives off one major obtuse marginal artery before terminating in the AV gr oove. No significant atherosclerotic plaque is present. The first obtuse marginal is a 3.5 mm bifurcating radhames ry which has no significant atherosclerotic plaque. Right coronary artery: A normal sized 4.7mm dominant artery which arises norm ally from the right sinus of Valsalva and gives off several right ve ntricular branches, the posterior descending artery and the post erolateral artery. No significant atherosclerotic plaque is p resent. The posterior descending is a 1.8 mm artery which has no significant atherosclerotic plaque. The posterolateral branch is a 2.7 mm artery which has no significant atherosclerotic plaque. Ramus: None Stents: None. Bypass Grafts: None. Pulmonary Arteries: Normal pulmonary artery sizes with no proximal thrombu s identified. Left Atrial and Pulmonary Vein (PV) Dimensions: Left atrial size (A-P diameter) 4.7 cm. Left atrial volume 149 ml Normal PV anatomy Left superior PV 21 mm. Left inferior PV17 mm. Right superior PV 20 mm. Right inferior PV20 mm. There is no evidence of the left atrial appendage clot . Left Ventricular Valve Morphology/Function: Aortic valve is tri-leaflet and there is no evidence o f significant stenosis or regurgitation. Mitral valve is normal without significant regurgitati on. Thoracic Aortic Dimensions: No aortic aneurysm or dissection is seen. Aortic root: 3.6 cm. Sinotubular junction 3.1 cm. Mid ascending thoracic aorta 3.6 cm. Descending thoracic aorta 2.8 cm. Pericardium: No pericardial effusion or pericardial thickening. Non-Cardiac Findings: Calcified mediastinal and right hilar lymph nodes and a calcified granulomas in the right lower lobe of the lung all con sistent with old granulomatous disease. Bibasilar atelectasis of the lungs. CONCLUSION CT coronary angiography shows no significant coronary artery atherosclerosis or stenosis in the well visualized seg ments. Aortic valve is tri-leaflet and there is no evidence o f significant stenosis or regurgitation. Mitral valve is normal without significant regurgitati on. Normal PV anatomy. There is no evidence of left atrial appendage thrombus . STUDY QUALITY The study quality is fair. COMMENTS: None. FINDINGS: Signed 05/23/2019 06:43 PM Kevin Dodge MD Procedure Note Interface, Radiology Results In - 2018 7:47 PM [facility] Nuclear Cardiology and Cardiac CT [address] [place] [address] CT Chest with Contra st Report Pat.Name: EMERSON ALMODOVAR Pat.I D: [id number] St.Date: 05/21/2019 Refer .MD: MCKAY EDWARDS MD Exam Time: 1:30:00 PM Study Type:CT Chest W Contrast Height: 68in BSA: 2.61 m2 Age: 9 1970,49Y Sex: MALE BP: 142/91 HR: 60 bpm Nuclear Tech:RT Ilene(Hung)(CT) Pat. Stat.:Outpatient Tape Vol: 53.98, CPT - 4: AFIB w Coronary [id number] Nuclear Event ID:[id number] Order ID: [id number] Reason for Study:Atrial fibrillation abl ation procedure Procedures: CT Flash mode SUMMARY: Technique: IV contrast was administered and sequential 0.[address] cuts were obtained through the chest using th e Siemens Somatom Force CT scanner. Image post-processing consistin g of multiplanar and 3D reconstructions were performed using the [employer] workstation. Interactive image viewing, volumetric display, and analysis were also performed. CTA RESULTS Left Main: A long 4.6 mm artery which arises britni lly from the left sinus of Valsalva and divides into the left anter ior descending and circumflex coronary arteries. No significant athero sclerotic plaque is present. Left anterior descending (LAD): A normal sized 4.4 mm artery which wraps around the apex and gives off two diagonal branches. No significant at herosclerotic plaque is present but the mid segment is not optim ally assessed due to motion artifact. The first diagonal is a 1.5 mm artery wh ich has no significant atherosclerotic plaque. The second diagonal is a 2.0 mm artery w hich has no significant atherosclerotic plaque. Left circumflex: A normal sized 4.2 mm non-dominant arter y which gives off one major obtuse marginal artery before terminatin g in the AV groove. No significant atherosclerotic plaque is pr esent. The first obtuse marginal is a 3.5 mm bi furcating artery which has no significant atherosclerotic plaque. Right coronary artery: A normal sized 4.7mm dominant artery whi ch arises normally from the right sinus of Valsalva and gives off se veral right ventricular branches, the posterior descending arter y and the posterolateral artery. No significant atherosclerotic plaque is present. The posterior descending is a 1.8 mm art clark which has no significant atherosclerotic plaque. The posterolateral branch is a 2.7 mm ar tab which has no significant atherosclerotic plaque. Ramus: None Stents: None. Bypass Grafts: None. Pulmonary Arteries: Normal pulmonary artery sizes with no pr oximal thrombus identified. Left Atrial and Pulmonary Vein (PV) Dim ensions: Left atrial size (A-P diameter) 4.7 cm. Left atrial volume 149 ml Normal PV anatomy Left superior PV 21 mm. Left inferior PV17 mm. Right superior PV 20 mm. Right inferior PV20 mm. There is no evidence of the left atrial appendage clot. Left Ventricular Valve Morphology/Functi on: Aortic valve is tri-leaflet and there is no evidence of significant stenosis or regurgitation. Mitral valve is normal without significa nt regurgitation. Thoracic Aortic Dimensions: No aortic aneurysm or dissection is seen . Aortic root: 3.6 cm. Sinotubular junction 3.1 cm. Mid ascending thoracic aorta 3.6 cm. Descending thoracic aorta 2.8 cm. Pericardium: No pericardial effusion or pericardial t hickening. Non-Cardiac Findings: Calcified mediastinal and right hilar ly mph nodes and a calcified granulomas in the right lower lobe of th e lung all consistent with old granulomatous disease. Bibasilar atelectasis of the lungs. CONCLUSION CT coronary angiography shows no signifi cant coronary artery atherosclerosis or stenosis in the well visualized segments. Aortic valve is tri-leaflet and there is no evidence of significant stenosis or regurgitation. Mitral valve is normal without significa nt regurgitation. Normal PV anatomy. There is no evidence of left atrial appe ndage thrombus. STUDY QUALITY The study quality is fair. COMMENTS: None. FINDINGS: Signed 05/23/2019 06:43 PM Kevin Dodge MD Performing Organization Address City/[facility]/Zipcode Phone Number [facility] [address] [place] [address] Estimated GFR (05/21/2019 1:51 PM [employer]) Pathologist [facility] Estimated GFR >=90 mL/min/1.73 [facility] Comment: HOSPITAL Catergory Units Interpretation G1 >=90 Normal or high G2 60-89 Mildly decreased G3a 45-59 Mildly to moderately decreas ed G3b 30-44 Moderately to severely decre ased G4 15-29 Severely decreased G5 <15 Kidney failure The eGFR was calculated using the Chronic Kidney Disea se Epidemiology Collaboration (CKD-EPI) equation. Interpretation is based on recommendations of the National Kidney Foundation-Kidney Disease Outcomes John lity Initiative (NKF-KDOQI) published in 2014. Specimen Blood Performing Organization Address [facility] Number [facility] DEPARTMENT OF PATHOLOGY AND [address] [place] [address] [phone] [address] POC creatinine (05/21/2019 1:51 PM [employer]ATING [employer]ER) Pathologist [facility] POC creatinine 0.8 0.7 - 1.2 mg/dl [facility] Comment: HOSPITAL Meter ID: [id number] Manager Food Beverage: Adan Barbosa Specimen Blood Performing Organization Address [facility]/Zipcode Phone Number [facility] DEPARTMENT OF PATHOLOGY AND [address] [place] [address] [phone] [address] after 12/30/2018 Insurance Payer Benefit Plan / Subscriber ID Effective Phone Address T ype Group Dates COMMERCIAL MISC MISC COMMERCIAL xxxxxxxxxxx 2014-Prese Commercial nt Advance Directives For more information, please contact: [phone] Type Date Recorded Patient [employer] Super[employer] Explanati on Advance Directives, Living Will and Medical Power of Managing Attorney
--- OUTSIDE RECORDS SUMMARY | 2019-12-31 10:00 | XMS REPORT | Continuity of Care Document ---
:1970 Author Organization [facility] t Address [address] [place] [address] Care Team Providers Name Role Phone Deni DAWSON Attending Clinician Payers Payer Name Policy Type Policy Number Effective Date Expiration Date S kleber COMMERCIAL xxxxxxxxxxx 2014 [place] MISCMISC 00:00:00 [employer] COMMERCIALxxxxxx /07/2014-Pr esentCommercial Problems Condition Condition Condition Status Onset Resolution Last Treating Co mments Source Name Details Category Date Date Treatment Clinician Date Microcytic Microcytic Problem Active [facility] Pulmonary Pulmonary Problem Active [facility] embol[facility] Hx Hx Problem Active [facility] pulmonary pulmonary Luke s - embolism embolism [facility] Benign Benign Diagnosis Active [facility] essential essential [facility] - HTN [facility]N [facility] Vitamin D Vitamin D Problem Active [facility] deficiency deficiency Ludivina kes - [facility] Erectile Erectile Diagnosis Active [facility] dysfunctio dysfunctio Ludivina kes - n, n, Memoria unspecifie unspecifie l d erectile d erectile Ou tpati dysfunctio dysfunctio en t n type n type Clinics Prediabete Prediabete Diagnosis Active [facility] s s [facility] 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 [facility] GERD GERD Diagnosis Active [facility] (gastroeso (gastroeso Ludivina kes - phageal phageal Memoria reflux reflux l disease) disease) Outpat i ent Clinics Morbid Morbid Problem Active [facility] obesity obesity [facility] Chronic Chronic Problem Active [facility] atrial atrial [facility] fibrillati fibrillati Me moria on on l [facility] Adult BMI Adult BMI Diagnosis Active [facility] 50.0-59.9 50.0-59.9 Luke s - kg/sq m kg/sq m [facility] History of History of Diagnosis Active [facility] kidney kidney [facility] stones stones [facility] Cellulitis Cellulitis Diagnosis Active [facility] of left of left [facility] leg [facility] Allergies, Adverse Reactions, Alerts Allergy Allergy Status Severity Reaction(s) Onset Inactive Treating Comm ents Source Name Type Date Date Clinician Iodinate DA Active SV 2018-07 [facility] d 08-06 Contrast 00:00: - Oral 00 and IV Dye Penicill DA Active U 2018-07 [facility] ins 2 00:00: 00 Iodine Propensi Active Itching 2018-07 Face Varg[place] ty to 118 flushed, Methodi adverse 00:00: erythmic st reaction 00 areas on s to forehead, drug chest Penicill Propensi Active Rash 2018-07 [place] ins ty to 1-15 Methodi adverse 00:00: st reaction 00 s to drug Penicill DA Active ID 2018-07 [facility] 0[facility]24 [place] [facility] Penicill DA Active SV [facility] ins 8-25 Clear 00:00: Soria 00 [facility] Amoxicil Adverse Active Info Not [facility] Reaction Available [facility] Social History Social Habit Start Date Stop Date Quantity Comments Source Sex Assigned At [place] Medications Ordered Filled Start Stop Current Ordering Indication Dosage Frequency Signature Comments Components Source Medication Medication Date Date Medication? Clinician (SIG) Name Name Sulfamethox Sulfamethox 2018- 2019- No Lai [address] [facility] azole-Trime azole-Trime 02-12 L[facility]pez [facility] thoprim thoprim 00:00: 00:00 [facility] 00 :[facility] Rythmol Rythmol Yes Lai [address] [facility] L[facility]pez [facility] Propafenone Propafenone Yes Lai [address] [facility] HCl HCl [facility] Calcium + Calcium + Yes Lai [address] [facility] D3 D3 López with a [facility] meal [facility] Vitamin B12 Vitamin B12 Yes Lai [address] [facility] L[facility]pez [facility] Multivitami Multivitami Yes Lai not [facility] n n López defined [facility] Metoprolol Metoprolol Yes Lai [address] Tartrate Tartrate López with food [facility] Ferrous Ferrous Yes Lai not [facility] Sulfate Sulfate López defined [facility] Vital Signs Vital Name Observation Time Observation Value Comments Source Systolic blood 2019-05-21 14:23:00 129 mm[Hg] [place] [employer] pressure Diastolic blood 2019-05-21 14:23:00 63 mm[Hg] [place] on [employer] pressure Heart rate 2019-05-21 14:23:00 61 /min Sam Peck Respiratory rate 2019-05-21 13:57:00 18 /min Luis smith [employer] Body height 2019-05-21 13:53:00 172.7 cm Sam Peck Body weight 2019-05-21 13:53:00 161.027 kg Sam Peck BMI 2019-05-21 13:53:00 53.98 kg/m2 Sam Peck Procedures Procedure Date / Time Performed Performing Clinician Isaiah brooke CV CTA CORONARY ARTERIES 2019-05-21 14:42:43 Jose Cheema W CONTRAST POC CREATININE 2019-05-21 13:51:00 Jose Cheema odist ESTIMATED GFR 2019-05-21 13:51:00 Jose Cheema Plan of Care Planned Activity Planned Date Details Comments Source Future Scheduled 2020-02-02 INFLUENZA VACCINE Rosemarie cunningham [employer] Test 00:00:00 [code = INFLUENZA VACCINE] Encounters Start End Encounter Admission Attending Care Care Encounter Source Date/Time Date/Time Type Type Clinicians Facility Department ID 2019-02-12 2019-02-12 [facility] [id number] [facility] 11:15:00 11:15:00 t [employer] [facility] [employer] [facility] Family Medicine l Medicine Outpati ent Clinics 2019-01-30 2019-01-30 [facility] [id number] [facility] 16:05:00 16:05:00 t [facility] - [facility] Medicine l Medicine Outpati ent Clinics 2018-09-08 2018-09-08 [facility] [id number] [address] 11:15:00 11:15:00 t [employer] [facility] - [employer] [facility] Family Medicine l Medicine Outpati ent Clinics 2018-08-21 2018-08-21 [facility] [id number] 14:55:00 14:55:00 t [employer] [facility] - [employer] [facility] Family Medicine l Medicine Outpati ent Clinics 2018-07-20 2018-07-20 [facility] [id number] [facility] 13:30:00 13:30:00 t [employer] [facility] [employer] [facility] Family Medicine l Medicine Outpati ent Clinics 2018-07-20 2018-07-20 [facility] [id number] 08:46:00 08:46:00 t [employer] [facility] - [employer] [facility] Family Medicine Medicine Outpati ent Clinics 2018-04-20 2018-04-20 [facility] [id number] 11:07:00 11:07:00 t [employer] [facility] - [facility] Medicine l Medicine Outpati ent Clinics 2017-12-12 2017-12-12 [facility] [id number] 10:30:00 10:30:00 t [employer] [facility] Medicine Outpati ent Clinics Results Test Description Test Time Test Comments Results Result Comments Source BASIC METABOLIC PANEL 2019-06-12 05:29:00 Test Item Value Reference Range Interpretation Comme nts SODIUM (test code = NA) 140 mmol/L 135-145 N POTASSIUM (test code = K) 4.8 mmol/L 3.5-5.1 N CHLORIDE (test code = CL) 107 mmol/L 98-107 N CARBON DIOXIDE (test code 29 mmol/L 21-32 N = CO2) ANION GAP (test code = 8.8 2.0-16.0 N GAP) GLUCOSE (test code = GLU) 120 mg/dL 65-99 H BLOOD UREA NITROGEN (test 13 mg/dL 4-23 N code = BUN) GLOMERULAR FILTRATION >=60 max estimate 60-115 N T he estimated glomerular RATE (test code = GFR) ml/min filtr ation rate is computed usingp atient race, age (>18) , sex, and serum creatinin e. If anyof the needed data elements are missing the Laboratory cannot compute an estimation of t he glomerular filt ration rate. CREATININE (test code = 0.8 mg/dL 0.6-1.5 N CREAT) BUN/CREATININE RATIO 16.3 12.0-20.0 N (test code = BUN/CREA) CALCIUM (test code = CA) 8.4 mg/dL 8.5-10.1 L CBC W/AUTO [id number] 05:15:00 Test Item Value Reference Range Interpretation Comments WHITE BLOOD CELL (test code = 11.0 10 3/uL 4.5-11.0 N WBC) RED BLOOD CELL (test code = 4.84 10 6/uL 4.30-5.50 N RBC) HEMOGLOBIN (test code = HGB) 14.4 g/dL 14.0-18.0 N HEMATOCRIT (test code = HCT) 45.1 % 40.0-55.0 N MEAN CELL VOLUME (test code = 93 fL 81-102 N MCV) MEAN CELL HGB (test code = 29.8 pg 26.0-34.0 N MCH) MEAN CELL HGB CONCENTRATION 31.9 % 31.0-37.0 N (test code = MCHC) RED CELL DISTRIBUTION WIDTH 13.2 % 11.5-14.5 N (test code = RDW) RED CELL DISTRIBUTION WIDTH SD 45.1 fL 35.1-43.9 H (test code = RDW-SD) PLATELET COUNT (test code = 199 10 3/uL 150-400 N PLT) MEAN PLATELET VOLUME (test 9.8 fl 9.0-12.6 N code = MPV) NEUTROPHIL % (test code = NT%) 86.1 % 33.0-76.0 H IMMATURE GRANULOCYTE % (test 0.4 % 0.0-1.0 N code = IG%) LYMPHOCYTE % (test code = LY%) 8.0 % 14.0-56.4 L MONOCYTE % (test code = MO%) 5.4 % 0.0-12.9 N EOSINOPHIL % (test code = EO%) 0.0 % 0.0-7.0 N BASOPHIL % (test code = BA%) 0.1 % 0-2.0 N NUCLEATED RBC % (test code = 0.0 % 0-0.2 N NRBC%) NEUTROPHIL # (test code = NT#) 9.46 10 3/uL 1.5-7.0 H IMMATURE GRANULOCYTE # (test 0.040 x10 3/uL 0.000-0.100 N code = IG#) LYMPHOCYTE # (test code = LY#) 0.88 10 3/uL 1.50-4.00 L MONOCYTE # (test code = MO#) 0.59 10 3/uL 0.20-0.80 N EOSINOPHIL # (test code = EO#) 0.00 10 3/uL 0.0-0.5 N BASOPHIL # (test code = BA#) 0.01 10 3/uL 0.0-0.1 N PROTHROMBIN [id number] 10:55:00 Test Item Value Reference Range Interpretation Comments PROTHROMBIN TIME 13.1 SECONDS 9.4-12.5 H PATIENT (test code = PTP) INTERNATIONAL 1.1 RATIO 0.8-1.1 N THE INR IS USE FUL ONLY NORMAL RATIO (test FOR MONIT ORING code = INR) ANTICOAGULANT THERAPY.IT MAY BE UNRELIABLE IN T HE INITIAL PHASE O F ANTICOAGULATION AND IN UNSTABLE PATIEN TS. 2.0-3.0 is the recommended INR for the following:Preve ntion of venous thrombol ism in high-risk patients;treatm ent of venous thrombos is and pulmonary embol ism aftera course o f heparin; preven tion of systemic emboli sm in avariety of con dition, including atria l fibrillation andprosthetic t issue heart valves.2. 5-3.5 is the recommended INR for the following:Prost hetic mechanical hear t values and/or recurren t systemicemboliz ation. THROMBOPLASTIN TIME [id number] 10:55:00 Test Item Value Reference Range Interpretation Comments THROMBOPLASTIN TIME PARTIAL 36.0 SECONDS 25.1-36.5 N (test code = PTT) BASIC METABOLIC [id number] 10:53:00 Test Item Value Reference Range Interpretation Comments SODIUM (test code 143 mmol/L 135-145 N = NA) POTASSIUM (test 4.6 mmol/L 3.5-5.1 N code = K) CHLORIDE (test 108 mmol/L 98-107 H code = CL) CARBON DIOXIDE 31 mmol/L 21-32 N (test code = CO2) ANION GAP (test 8.6 2.0-16.0 N code = GAP) GLUCOSE (test code 105 mg/dL 65-99 H = GLU) BLOOD UREA 13 mg/dL 4-23 N NITROGEN (test code = BUN) GLOMERULAR >=60 max 60-115 N The estimated FILTRATION RATE estimate ml/min glomerula r (test code = GFR) filtration rate is computed usingpatient ra ce, age (>18), sex, and serum creatinin e. If anyof the neede d data elements a re missing the Laboratory elvi ot compute an estimation of t he glomerular filtration rate . CREATININE (test 0.8 mg/dL 0.6-1.5 N code = CREAT) BUN/CREATININE 16.3 12.0-20.0 N RATIO (test code = BUN/CREA) CALCIUM (test code 8.8 mg/dL 8.5-10.1 N = CA) [id number] 10:53:00 Test Item Value Reference Range Interpretation Comments MAGNESIUM (test code = MAG) 2.0 mg/dL 1.8-2.4 N CBC W/AUTO [id number] 10:37:00 Test Item Value Reference Range Interpretation Comments WHITE BLOOD CELL (test code = 7.0 10 3/uL 4.5-11.0 N WBC) RED BLOOD CELL (test code = 5.23 10 6/uL 4.30-5.50 N RBC) HEMOGLOBIN (test code = HGB) 15.4 g/dL 14.0-18.0 N HEMATOCRIT (test code = HCT) 48.1 % 40.0-55.0 N MEAN CELL VOLUME (test code = 92 fL 81-102 N MCV) MEAN CELL HGB (test code = 29.4 pg 26.0-34.0 N MCH) MEAN CELL HGB CONCENTRATION 32.0 % 31.0-37.0 N (test code = MCHC) RED CELL DISTRIBUTION WIDTH 13.1 % 11.5-14.5 N (test code = RDW) RED CELL DISTRIBUTION WIDTH SD 44.4 fL 35.1-43.9 H (test code = RDW-SD) PLATELET COUNT (test code = 217 10 3/uL 150-400 N PLT) MEAN PLATELET VOLUME (test 9.6 fl 9.0-12.6 N code = MPV) NEUTROPHIL % (test code = NT%) 61.4 % 33.0-76.0 N IMMATURE GRANULOCYTE % (test 0.4 % 0.0-1.0 N code = IG%) LYMPHOCYTE % (test code = LY%) 25.8 % 14.0-56.4 N MONOCYTE % (test code = MO%) 8.7 % 0.0-12.9 N EOSINOPHIL % (test code = EO%) 3.4 % 0.0-7.0 N BASOPHIL % (test code = BA%) 0.3 % 0-2.0 N NUCLEATED RBC % (test code = 0.0 % 0-0.2 N NRBC%) NEUTROPHIL # (test code = NT#) 4.31 10 3/uL 1.5-7.0 N IMMATURE GRANULOCYTE # (test 0.030 x10 3/uL 0.000-0.100 N code = IG#) LYMPHOCYTE # (test code = LY#) 1.81 10 3/uL 1.50-4.00 N MONOCYTE # (test code = MO#) 0.61 10 3/uL 0.20-0.80 N EOSINOPHIL # (test code = EO#) 0.24 10 3/uL 0.0-0.5 N BASOPHIL # (test code = BA#) 0.02 10 3/uL 0.0-0.1 N TROPONIN I [id number] 21:25:00 Test Item Value Reference Range Interpretation Comments TROPONIN I RAPID 0.02 ng/mL 0.00-0.08 N - The use o f serial (test code = sampling and te sting TROPIRAP) protocol is a recommended pra ctice- An elevated tro ponin level alone is often not sufficient for diagnosis of my ocardial infarction. HEPATIC FUNCTION [id number] 20:07:00 Test Item Value Reference Range Interpretation Comments TOTAL PROTEIN (test code = PROT) 7.5 G/DL 6.4-8.2 N ALBUMIN (test code = ALB) 3.6 G/DL 3.4-5.0 N BILIRUBIN TOTAL (test code = BILT) 0.80 MG/DL 0.2-1.2 N BILIRUBIN DIRECT (test code = 0.20 MG/DL 0.00-0.30 N BILD) BILIRUBIN INDIRECT (test code = 0.60 MG/DL 0.2-1.2 N BILIND) SGOT/AST (test code = AST) 26 Unit/L 15-37 N SGPT/ALT (test code = ALT) 37 Unit/L 12-78 N ALKALINE PHOSPHATASE TOTAL (test 104 Unit/L 50-136 N code = ALKP) CREATINE KINASE (CK)2019-04-26 20:07:00 Test Item Value Reference Range Interpretation Comments CREATINE KINASE (CK) (test code = 275 Unit/L 26-192 H CK) [id number] 20:07:00 Test Item Value Reference Range Interpretation Comments LIPASE (test code = LIP) 225 Unit/L 114-286 N - XR CHEST 1 [id number] 19:50:00 Name: MELVIN ALMODOVAR [facility] : 1970 Age/S: 49 / M [address] [facility]: [id number] Loc: [place] [address] Phys: Ernesto Stewart MD Acct: [id number] Dis Date: Status: REG ER PHONE #: [phone] Exam Date: 04/26/20191939 FAX #: Reason: chest pain EXAMS: CPT: [id number] XR CHEST 1 V [id number] Fluoro Time: DAP (Gy m2): Air Kerma (mGy): AP VIEW OF THE CHEST LOCATION:R16 CLINICAL HISTORY: Chest pain. COMPARISON: No previous exam available. FINDINGS: The cardiomediastinal shadow is within normal limits. Pu lmonary vascular congestion is seen. The lungs are otherwise grossly clear. No pleural fluids. No acute bony abnormality is found. IMPRESSION: Pulmonary vascular congestion. at 1950 Reported and signed by: Jeri Baca M.D. CC: PAGE 1 Signed Report Name: MELVIN ALMODOVAR : 1970 Age/S: 49 / M [address] [address] Unit #: [id number] Loc: [place] [address] Phys: Ernesto Stewart MD Acct: [id number] Dis Date: Status: REG ER PHONE #: [phone] Exam Date: 04/26/20191939 FAX #: Reason: chest pain EXAMS: CPT: [id number] XR CHEST 1 V [id number] Fluoro Time: DAP (Gy m2): Air Kerma (mGy): <Continued> Technologist: Hi Frye, RT(R)(CT); ... Trnscb Date/Time: 04/26/2019 (1949) [email or web address] Orig Print D/T: S: 04/26/2019 (1952) PAGE 2 Signed ReportTROPONIN I RAPID 2019-04-26 19:38:00 Test Item Value Reference Range Interpretation Comments TROPONIN I RAPID 0.01 ng/mL 0.00-0.08 N - The use o f serial (test code = sampling and te sting TROPIRAP) protocol is a recommended pra ctice- An elevated tro ponin level alone is often not sufficient for diagnosis of my ocardial infarction. CBC W/O [id number] 19:36:00 Test Item Value Reference Range Interpretation Comments WHITE BLOOD CELL (test code = 8.5 K/mm3 3.5-11.0 N WBC) RED BLOOD CELL (test code = RBC) 4.90 M/mm3 4.70-6.10 N HEMOGLOBIN (test code = HGB) 14.7 G/DL 12.3-15.9 N HEMATOCRIT (test code = HCT) 44.6 % 35.8-46.7 N MEAN CELL VOLUME (test code = 91.0 Fl 86.3-98.9 N MCV) MEAN CELL HGB (test code = MCH) 30.0 pg 28.9-34.4 N MEAN CELL HGB CONCETRATION (test 33.0 G/DL 32.1-34.5 N code = MCHC) RED CELL DISTRIBUTION WIDTH (test 15.3 SD 11.5-14.5 H code = RDW) PLATELET COUNT (test code = PLT) 207.0 K/mm3 150-450 N MEAN PLATELET VOLUME (test code = 9.60 fL 7.0-9.6 N MPV) CHEMISTRY 8 [id number] 19:30:00 Test Item Value Reference Range Interpretation Comments ISTAT-SODIUM (test code = NAP) mmol/L 135-146 ISTAT-POTASSIUM (test code = KP) mmol/L 3.5-4.9 ISTAT-CHLORIDE (test code = CLP) mmol/L 98-109 ISTAT-CARBON DIOXIDE (test code = mmol/L 24-29 N ISTAT-CO2) ISTAT CALCIUM IONIZED (test code = mmol/L 1.12-1.32 ISTAT-SHAWNA) ISTAT-GLUCOSE (test code = GLUP) mg/dL 70-105 H ISTAT-BUN (test code = BUNP) mg/dL 8-26 N BEDSIDE CREATININE (test code = mg/dL 0.6-1.3 N CREATBED) GLOMERULAR FILTRATION RATE POC (test 109 63-147 N code = GFRBED) CHEMISTRY 8 [id number] 19:30:00 Test Item Value Reference Range Interpretation Comments ISTAT-SODIUM (test code = NAP) 142 mmol/L 135-146 N ISTAT-POTASSIUM (test code = KP) 3.8 mmol/L 3.5-4.9 N ISTAT-CHLORIDE (test code = CLP) 105 mmol/L 98-109 N ISTAT-CARBON DIOXIDE (test code = 26 mmol/L 24-29 N ISTAT-CO2) ISTAT CALCIUM IONIZED (test code 1.12 mmol/L 1.12-1.32 N = ISTAT-SHAWNA) ISTAT-GLUCOSE (test code = GLUP) 117 mg/dL 70-105 H ISTAT-BUN (test code = BUNP) 20 mg/dL 8-26 N BEDSIDE CREATININE (test code = 0.8 mg/dL 0.6-1.3 N CREATBED) GLOMERULAR FILTRATION RATE POC 109 63-147 N (test code = GFRBED) BASIC METABOLIC [id number] 09:34:00 Test Item Value Reference Range Interpretation Comments SODIUM (test code = NA) 143 mmol/L 134-147 N POTASSIUM (test code = 4.4 mmol/L 3.4-5.0 N K) CHLORIDE (test code = 112 mmol/L 100-108 H CL) CARBON DIOXIDE (test 29 mmol/L 21-32 N code = CO2) ANION GAP (test code = 2.0 GAP calc 4.0-15.0 L GAP) GLUCOSE (test code = 102 MG/DL 70-110 N GLU) BLOOD UREA NITROGEN 17 MG/DL 7-18 N (test code = BUN) GLOMERULAR FILTRATION >=60 max estimate >60 RATE (test code = GFR) estGFR CREATININE (test code = 0.7 MG/DL 0.8-1.3 L CREAT) CALCIUM (test code = CA) 8.3 MG/DL 8.5-10.1 L BASIC METABOLIC [id number] 09:29:00 Test Item Value Reference Range Interpretation Comments SODIUM (test code = NA) 143 mmol/L 134-147 N POTASSIUM (test code = K) 4.4 mmol/L 3.4-5.0 N CHLORIDE (test code = CL) 112 mmol/L 100-108 H CARBON DIOXIDE (test code = CO2) 29 mmol/L 21-32 N ANION GAP (test code = GAP) 2.0 GAP calc 4.0-15.0 L GLUCOSE (test code = GLU) 102 MG/DL 70-110 N BLOOD UREA NITROGEN (test code = 17 MG/DL 7-18 N BUN) GLOMERULAR FILTRATION RATE (test estGFR >60 code = GFR) CREATININE (test code = CREAT) MG/DL 0.8-1.3 CALCIUM (test code = CA) 8.3 MG/DL 8.5-10.1 L PROTHROMBIN [id number] 09:27:00 Test Item Value Reference Range Interpretation Comments PT PATIENT (test code = PTP) 13.5 SECONDS 9.3-12.9 H INTERNATIONAL NORMAL RATIO 1.17 INR Unit 0.8-1.2 N (test code = INR) CBC W/AUTO [id number] 09:23:00 Test Item Value Reference Range Interpretation Comments WHITE BLOOD CELL (test code = 6.0 K/mm3 3.5-11.0 N WBC) RED BLOOD CELL (test code = RBC) 3.78 M/mm3 4.70-6.10 L HEMOGLOBIN (test code = HGB) 11.6 G/DL 12.3-15.9 L HEMATOCRIT (test code = HCT) 35.5 % 35.8-46.7 L MEAN CELL VOLUME (test code = 93.9 Fl 86.3-98.9 N MCV) MEAN CELL HGB (test code = MCH) 30.7 pg 28.9-34.4 N MEAN CELL HGB CONCETRATION (test 32.7 G/DL 32.1-34.5 N code = MCHC) RED CELL DISTRIBUTION WIDTH (test 14.9 SD 11.5-14.5 H code = RDW) PLATELET COUNT (test code = PLT) 199.0 K/mm3 150-450 N MEAN PLATELET VOLUME (test code = 9.70 fL 7.0-9.6 H MPV) NEUTROPHIL % (test code = NT%) 60.0 % 40-76 LYMPHOCYTE % (test code = LY%) 28.6 % 20.5-51.1 N MONOCYTE % (test code = MO%) 7.3 % 1.7-9.3 N EOSINOPHIL % (test code = EO%) 3.8 % 0.0-6.0 N BASOPHIL % (test code = BA%) 0.3 % 0.0-2.0 N NEUTROPHIL # (test code = NT#) 3.61 K/mm3 1.8-7.6 N LYMPHOCYTE # (test code = LY#) 1.7 K/mm3 0.6-3.0 N MONOCYTE # (test code = MO#) 0.4 K/mm3 0.2-1.5 N EOSINOPHIL # (test code = EO#) 0.2 K/mm3 0.0-0.4 N BASOPHIL # (test code = BA#) 0.0 K/mm3 0.0-0.2 N MANUAL DIFF REQUIRED (test code = NO DIFF/SCN CRITERIA MDIFF) - CT ABD PELVIS [id number] 16:55:00 Name: ALMODOVAREMERSON [facility] : 1970 Age/S: 48 / M [address] [address] Unit #: [id number] Loc: [place] [address] Phys: Jerad Adair MD Acct: [id number] Dis Date: Status: REG ER PHONE #: [phone] Exam Date: 10/28/2018 1643 FAX #: Reason: abd pain, coffe ground emesis and melena EXAMS: CPT: [id number] CT ABD PELVIS W/CONT [id number] CT ABDOMEN PELVIS WITH CONTRAST HISTORY: Abdominal pain, coffee ground emesis and melena COMPARISON: CT angiogram chest dated February 25, 2014 TECHNIQUE: Axial images of the abdomen and pelvis were obtained following the administration of 100 mL Isovue-300 intravenous contrast. Coronal and sagittal reformats were provided. One or more of the following dose reduction techniques were used: Automated exposure control, adjustment of the mA and/or kVaccording to patient size, and/or utilization of iterative reconstruction technique. FINDINGS: Lower thorax: Unremarkable. Hepatobiliary: Unremarkable. No biliary ductal dilatation. Gallbladder: No calcified gallstones are identified. The gallbladder wall appears normal. Spleen: Unremarkable. Pancreas: Unremarkable. Adrenals: Unremarkable. Kidneys/ureters: A 6.3 cm Bosniak type I cyst is seen in the lower pole of the right kidney. A 1 cm hypodensity in the mid left kidney is too small to characterize (series 2, image 43). Bowel: Postsurgical changes of gastric bypass are noted. There is no evidence of bowel obstruction. The smallbowel loops are nondilated. The appendix is normal. The large bowel is grossly unremarkable. Pelvic organs/bladder: The urinary bladder is unremarkable. The prostate gland isnormal in size. Vessels: The abdominal aorta is normal in caliber. Lymphnodes: No lymphadenopathy. Peritoneum/Retroperitoneum: No free air or free fluid is seen. A 5.9 x PAGE 1 Signed Report (CONTINUED) Name: EMERSON ALMODOVAR [facility] [place] : 1970 Age/S: 48 / M [address] [address] Unit #: [id number] Loc: [place] [address] Phys: Jerad Adair MD Acct: [id number] Dis Date: Status: REG ER PHONE #: [phone] Exam Date: 10/28/2018 1643 FAX #: Reason: abd pain, coffe ground emesis and melena EXAMS: CPT:[id number] CT ABD PELVIS W/CONT [id number] <Continued> 5.2 x 7 cm fat-containing umbilical hernia is noted. Bones/soft tissues: No destructive bony lesions. IMPRESSION: 1. Postsurgical changes of gastric bypass. 2. Bosniak type I cyst in the right kidney. A 1 cm hypodensity in the left kidney istoo small to characterize. 6 month ultrasound follow-up can be obtained. 3. Small fat-containing umbilical hernia. LOCATION: R16 at 1655 Reported and signed by: Ernestine Peoples CC: Jerad Adair MD Technologist:MARIA R PEÑA RT(R)(CT)(MR) CTDI: DLP: Trnscb Date/Time: 10/28/2018 (4327) [email or web address] Orig Print D/T: S: 10/28/2018 (2841) CTDI: DLP: PAGE 2 Signed ReportUA RFLX MICR CULT IF [id number] 15:26:00 Test Item Value Reference Range Interpretation Comments UA COLOR (test code = YELLOW discript YEL/STRAW COLU) UA APPEARANCE (test code CLEAR discript CLEAR = APPU) UA GLUCOSE DIPSTICK (test NEGATIVE mg/dL NEG code = DGLUU) UA BILIRUBIN DIPSTICK NEGATIVE mg/DL >0 (test code = BILU) UA KETONE DIPSTICK (test 5-15 mg/DL (NEG) 0 code = KETU) UA SPECIFIC GRAVITY (test 1.010 SG 1.005-1.030 code = SGU) UA BLOOD DIPSTICK (test NEGATIVE Shaun/mcL (NEG) 0 code = RAMAKRISHNA) UA PH DIPSTICK (test code 6.0 pH UNITS 5.0-7.0 = SANTINO) UA PROTEIN DIPSTICK (test NEGATIVE mg/DL <30 code = PROU) UA UROBILINIOGEN DIPSTICK NORMAL mg/DL (NORM) <2.0 (test code = URO) UA NITRITE DIPSTICK (test NEGATIVE SCREEN NEG code = ILDA) UA LEUKOCYTE ESTERASE NEGATIVE Leuk/mcL (NEG) 0 DIPSTICK (test code = LEUU) UA CULTURE NEEDED? (test NO, WBC<10 Criteria Culture CHK code = UACULT) SOURCE OF URINE: CLEAN CATCHless than 18 yrs old, neutropenic, or urological surgery? NOPrimary Indication for Culture: OtherOther Indication: dizzyBASIC METABOLIC [id number] 15:16:00 Test Item Value Reference Range Interpretation Comments SODIUM (test code = NA) 142 mmol/L 134-147 N POTASSIUM (test code = 4.5 mmol/L 3.4-5.0 N K) CHLORIDE (test code = 110 mmol/L 100-108 H CL) CARBON DIOXIDE (test 28 mmol/L 21-32 N code = CO2) ANION GAP (test code = 4.0 GAP calc 4.0-15.0 N GAP) GLUCOSE (test code = 105 MG/DL 70-110 N GLU) BLOOD UREA NITROGEN 25 MG/DL 7-18 H (test code = BUN) GLOMERULAR FILTRATION >=60 max estimate >60 RATE (test code = GFR) estGFR CREATININE (test code = 0.8 MG/DL 0.8-1.3 N CREAT) CALCIUM (test code = CA) 7.7 MG/DL 8.5-10.1 L Completed by Nursing: NOHEPATIC FUNCTION [id number] 15:16:00 Test Item Value Reference Range Interpretation Comments TOTAL PROTEIN (test code = PROT) 6.7 G/DL 6.4-8.2 N ALBUMIN (test code = ALB) 3.2 G/DL 3.4-5.0 L BILIRUBIN TOTAL (test code = BILT) 0.50 MG/DL 0.2-1.2 N BILIRUBIN DIRECT (test code = 0.10 MG/DL 0.00-0.30 N BILD) BILIRUBIN INDIRECT (test code = 0.40 MG/DL 0.2-1.2 N BILIND) SGOT/AST (test code = AST) 30 Unit/L 15-37 N SGPT/ALT (test code = ALT) 40 Unit/L 12-78 N ALKALINE PHOSPHATASE TOTAL (test 91 Unit/L 50-136 N code = ALKP) Completed by Nursing: [id number] 15:16:00 Test Item Value Reference Range Interpretation Comments LIPASE (test code = LIP) 287 Unit/L 114-286 H Completed by Nursing: [id number] 15:16:00 Test Item Value Reference Range Interpretation Comments TROPONIN-I (test < 0.015 NG/ML 0.000-0.045 N Negative: </= 0.045 code = TROPI) Positive: >/= 0.046 Correlation wit h serial results, other cardiac markers, and cl inical findings is nec essary to determine the c linical significance of this result. Quantit ative results using d ifferent methodologies s hould not be compared to one another as nume rical results may rusty yby method. Completed by Nursing: NOBASIC METABOLIC [id number] 15:01:00 Test Item Value Reference Range Interpretation Comments SODIUM (test code = NA) 142 mmol/L 134-147 N POTASSIUM (test code = K) 4.5 mmol/L 3.4-5.0 N CHLORIDE (test code = CL) 110 mmol/L 100-108 H CARBON DIOXIDE (test code = CO2) 28 mmol/L 21-32 N ANION GAP (test code = GAP) 4.0 GAP calc 4.0-15.0 N GLUCOSE (test code = GLU) 105 MG/DL 70-110 N BLOOD UREA NITROGEN (test code = 25 MG/DL 7-18 H BUN) GLOMERULAR FILTRATION RATE (test estGFR >60 code = GFR) CREATININE (test code = CREAT) MG/DL 0.8-1.3 CALCIUM (test code = CA) 7.7 MG/DL 8.5-10.1 L Completed by Nursing: AYUSHHEPATIC FUNCTION [id number] 15:01:00 Test Item Value Reference Range Interpretation Comments TOTAL PROTEIN (test code = PROT) G/DL 6.4-8.2 ALBUMIN (test code = ALB) G/DL 3.4-5.0 BILIRUBIN TOTAL (test code = BILT) MG/DL 0.2-1.2 BILIRUBIN DIRECT (test code = BILD) MG/DL 0.00-0.30 BILIRUBIN INDIRECT (test code = MG/DL 0.2-1.2 BILIND) SGOT/AST (test code = AST) Unit/L 15-37 SGPT/ALT (test code = ALT) Unit/L 12-78 ALKALINE PHOSPHATASE TOTAL (test code Unit/L 50-136 = ALKP) Completed by Nursing: [id number] 15:01:00 Test Item Value Reference Range Interpretation Comments LIPASE (test code = LIP) 287 Unit/L 114-286 H Completed by Nursing: [id number] 15:01:00 Test Item Value Reference Range Interpretation Comments TROPONIN-I (test code = TROPI) NG/ML 0.000-0.045 Completed by Nursing: NOCBC W/AUTO [id number] 14:51:00 Test Item Value Reference Range Interpretation Comments WHITE BLOOD CELL (test code = 8.6 K/mm3 3.5-11.0 N WBC) RED BLOOD CELL (test code = RBC) 3.98 M/mm3 4.70-6.10 L HEMOGLOBIN (test code = HGB) 12.1 G/DL 12.3-15.9 L HEMATOCRIT (test code = HCT) 37.1 % 35.8-46.7 N MEAN CELL VOLUME (test code = 93.2 Fl 86.3-98.9 N MCV) MEAN CELL HGB (test code = MCH) 30.4 pg 28.9-34.4 N MEAN CELL HGB CONCETRATION (test 32.6 G/DL 32.1-34.5 N code = MCHC) RED CELL DISTRIBUTION WIDTH (test 14.7 SD 11.5-14.5 H code = RDW) PLATELET COUNT (test code = PLT) 206.0 K/mm3 150-450 N MEAN PLATELET VOLUME (test code = 9.60 fL 7.0-9.6 N MPV) NEUTROPHIL % (test code = NT%) 66.8 % 40-76 N LYMPHOCYTE % (test code = LY%) 22.1 % 20.5-51.1 N MONOCYTE % (test code = MO%) 8.1 % 1.7-9.3 N EOSINOPHIL % (test code = EO%) 2.8 % 0.0-6.0 N BASOPHIL % (test code = BA%) 0.2 % 0.0-2.0 N NEUTROPHIL # (test code = NT#) 5.71 K/mm3 1.8-7.6 N LYMPHOCYTE # (test code = LY#) 1.9 K/mm3 0.6-3.0 N MONOCYTE # (test code = MO#) 0.7 K/mm3 0.2-1.5 N EOSINOPHIL # (test code = EO#) 0.2 K/mm3 0.0-0.4 N BASOPHIL # (test code = BA#) 0.0 K/mm3 0.0-0.2 N MANUAL DIFF REQUIRED (test code = NO DIFF/SCN CRITERIA MDIFF) URINALYSIS [id number] 09:10:00 Test Item Value Reference Range Interpretation Comments UA COLOR (test code = COLU) YELLOW discript YEL/STRAW UA APPEARANCE (test code = CLEAR discript CLEAR APPU) UA GLUCOSE DIPSTICK (test NEGATIVE mg/dL NEG code = DGLUU) UA BILIRUBIN DIPSTICK (test NEGATIVE mg/dL NEG code = BILU) UA KETONE DIPSTICK (test NEGATIVE mg/dL NEG code = KETU) UA SPECIFIC GRAVITY (test 1.025 SG 1.005-1.030 code = SGU) UA BLOOD DIPSTICK (test TRACE mg/DL NEG code = RAMAKRISHNA) UA PH DIPSTICK (test code = 6.0 pH UNITS 5.0-7.0 SANTINO) UA PROTEIN DIPSTICK (test NEGATIVE mg/dL NEG code = PROU) UA UROBILINIOGEN DIPSTICK 0.2 mg/dL <2.0 (test code = URO) UA NITRITE DIPSTICK (test NEGATIVE SCREEN NEG code = ILDA) UA LEUKOCYTE ESTERASE NEGATIVE Leuk/mcL NEGATIVE DIPSTICK (test code = LEUU) UA RBC (test code = RBCU) 1-3 #RBC/HPF 0-3 UA MUCUS (test code = MUCU) TRACE /LPF NONE SEEN URINALYSIS [id number] 08:59:00 Test Item Value Reference Range Interpretation Comments UA COLOR (test code = COLU) YELLOW discript YEL/STRAW UA APPEARANCE (test code = CLEAR discript CLEAR APPU) UA GLUCOSE DIPSTICK (test NEGATIVE mg/dL NEG code = DGLUU) UA BILIRUBIN DIPSTICK (test NEGATIVE mg/dL NEG code = BILU) UA KETONE DIPSTICK (test NEGATIVE mg/dL NEG code = KETU) UA SPECIFIC GRAVITY (test 1.025 SG 1.005-1.030 code = SGU) UA BLOOD DIPSTICK (test TRACE mg/DL NEG code = RAMAKRISHNA) UA PH DIPSTICK (test code = 6.0 pH UNITS 5.0-7.0 SANTINO) UA PROTEIN DIPSTICK (test NEGATIVE mg/dL NEG code = PROU) UA UROBILINIOGEN DIPSTICK 0.2 mg/dL <2.0 (test code = URO) UA NITRITE DIPSTICK (test NEGATIVE SCREEN NEG code = ILDA) UA LEUKOCYTE ESTERASE NEGATIVE Leuk/mcL NEGATIVE DIPSTICK (test code = LEUU) COMPREHENSIVE METABOLIC [id number] 08:47:00 Test Item Value Reference Range Interpretation Comments SODIUM (test code = NA) 141 mmol/L 134-147 N POTASSIUM (test code = 4.6 mmol/L 3.4-5.0 N K) CHLORIDE (test code = 106 mmol/L 100-108 N CL) CARBON DIOXIDE (test 29 mmol/L 21-32 N code = CO2) ANION GAP (test code = 6.0 GAP calc 4.0-15.0 N GAP) GLUCOSE (test code = 111 MG/DL 70-110 H GLU) BLOOD UREA NITROGEN 20 MG/DL 7-18 H (test code = BUN) GLOMERULAR FILTRATION >=60 max estimate >60 RATE (test code = GFR) estGFR CREATININE (test code = 0.8 MG/DL 0.8-1.3 N CREAT) TOTAL PROTEIN (test code 7.7 G/DL 6.4-8.2 N = PROT) ALBUMIN (test code = 3.7 G/DL 3.4-5.0 N ALB) GLOBULIN (test code = 4.0 GM/dL GLOB) ALBUMIN/GLOBULIN RATIO 0.9 RATIO 1.2-2.2 L (test code = A/G) CALCIUM (test code = CA) 8.6 MG/DL 8.5-10.1 N BILIRUBIN TOTAL (test 0.70 MG/DL 0.2-1.2 N code = BILT) SGOT/AST (test code = 21 Unit/L 15-37 N AST) SGPT/ALT (test code = 32 Unit/L 12-78 N ALT) ALKALINE PHOSPHATASE 106 Unit/L 50-136 N TOTAL (test code = ALKP) LIPID PROFILE (CORONARY RISK)[id number] 08:47:00 Test Item Value Reference Range Interpretation Comments TRIGLYCERIDES (test code = TRIG) 81 MG/DL 0-150 N CHOLESTEROL (test code = CHOL) 161 MG/DL 133-200 N CHOLESTEROL/HDL RATIO (test code = 2.33 RATIO >0 CHOLHDL) HDL CHOLESTEROL (test code = HDL) 69 MG/DL 40-59 H NON-HDL CHOLESTEROL (test code = 92 mg/dL <130 NHDL) LIPOPROTEIN LDL (test code = LDL) 83 MG/DL 0-129 N LDL/HDL (test code = LDL/HDL) 1.20 Ratio 1.48-3.22 Avg L URIC [id number] 08:47:00 Test Item Value Reference Range Interpretation Comments URIC ACID (test code = URIC) 4.0 MG/DL 3.5-7.2 N T4 [id number] 08:47:00 Test Item Value Reference Range Interpretation Comments T4 FREE (test code = T4F) 0.94 NG/DL 0.89-1.76 N THYROID STIMULATING [id number] 08:47:00 Test Item Value Reference Range Interpretation Comments THYROID STIMULATING HORMONE 2.260 mcIU/ML 0.340-4.820 N (test code = TSH) GLYCOSYLATED HEMOGLOBIN (HA1C)2018-09-05 08:43:00 Test Item Value Reference Range Interpretation Comments GLYCOSYLATED HEMOGLOBIN (HA1C) 6.3 % A1C 4.2-6.3 N (test code = GLYHGB) COMPREHENSIVE METABOLIC [id number] 08:34:00 Test Item Value Reference Range Interpretation Comments SODIUM (test code = NA) 141 mmol/L 134-147 N POTASSIUM (test code = K) 4.6 mmol/L 3.4-5.0 N CHLORIDE (test code = CL) 106 mmol/L 100-108 N CARBON DIOXIDE (test code = CO2) 29 mmol/L 21-32 N ANION GAP (test code = GAP) 6.0 GAP calc 4.0-15.0 N GLUCOSE (test code = GLU) 111 MG/DL 70-110 H BLOOD UREA NITROGEN (test code = 20 MG/DL 7-18 H BUN) GLOMERULAR FILTRATION RATE (test estGFR >60 code = GFR) CREATININE (test code = CREAT) MG/DL 0.8-1.3 TOTAL PROTEIN (test code = PROT) G/DL 6.4-8.2 ALBUMIN (test code = ALB) G/DL 3.4-5.0 GLOBULIN (test code = GLOB) GM/dL ALBUMIN/GLOBULIN RATIO (test RATIO 1.2-2.2 code = A/G) CALCIUM (test code = CA) 8.6 MG/DL 8.5-10.1 N BILIRUBIN TOTAL (test code = MG/DL 0.2-1.2 BILT) SGOT/AST (test code = AST) Unit/L 15-37 SGPT/ALT (test code = ALT) Unit/L 12-78 ALKALINE PHOSPHATASE TOTAL (test Unit/L 50-136 code = ALKP) LIPID PROFILE (CORONARY RISK)2018-09-05 08:34:00 Test Item Value Reference Range Interpretation Comments TRIGLYCERIDES (test code = TRIG) MG/DL 0-150 CHOLESTEROL (test code = CHOL) MG/DL 133-200 CHOLESTEROL/HDL RATIO (test code = RATIO >0 CHOLHDL) HDL CHOLESTEROL (test code = HDL) MG/DL 40-59 NON-HDL CHOLESTEROL (test code = NHDL) mg/dL <130 LIPOPROTEIN LDL (test code = LDL) MG/DL 0-129 LDL/HDL (test code = LDL/HDL) Ratio 1.48-3.22 Avg URIC [id number] 08:34:00 Test Item Value Reference Range Interpretation Comments URIC ACID (test code = URIC) MG/DL 3.5-7.2 T4 [id number] 08:34:00 Test Item Value Reference Range Interpretation Comments T4 FREE (test code = T4F) NG/DL 0.89-1.76 THYROID STIMULATING [id number] 08:34:00 Test Item Value Reference Range Interpretation Comments THYROID STIMULATING HORMONE (test mcIU/ML 0.340-4.820 code = TSH) CBC W/AUTO [id number] 08:20:00 Test Item Value Reference Range Interpretation Comments WHITE BLOOD CELL (test code = 7.5 K/mm3 3.5-11.0 N WBC) RED BLOOD CELL (test code = RBC) 4.86 M/mm3 4.70-6.10 N HEMOGLOBIN (test code = HGB) 14.3 G/DL 12.3-15.9 N HEMATOCRIT (test code = HCT) 43.7 % 35.8-46.7 N MEAN CELL VOLUME (test code = 89.9 Fl 86.3-98.9 N MCV) MEAN CELL HGB (test code = MCH) 29.4 pg 28.9-34.4 N MEAN CELL HGB CONCETRATION (test 32.7 G/DL 32.1-34.5 N code = MCHC) RED CELL DISTRIBUTION WIDTH (test 14.9 SD 11.5-14.5 H code = RDW) PLATELET COUNT (test code = PLT) 217.0 K/mm3 150-450 N MEAN PLATELET VOLUME (test code = 9.20 fL 7.0-9.6 N MPV) NEUTROPHIL % (test code = NT%) 62.9 % 40-76 N LYMPHOCYTE % (test code = LY%) 23.9 % 20.5-51.1 N MONOCYTE % (test code = MO%) 9.8 % 1.7-9.3 H EOSINOPHIL % (test code = EO%) 3.1 % 0.0-6.0 N BASOPHIL % (test code = BA%) 0.3 % 0.0-2.0 N NEUTROPHIL # (test code = NT#) 4.74 K/mm3 1.8-7.6 N LYMPHOCYTE # (test code = LY#) 1.8 K/mm3 0.6-3.0 N MONOCYTE # (test code = MO#) 0.7 K/mm3 0.2-1.5 N EOSINOPHIL # (test code = EO#) 0.2 K/mm3 0.0-0.4 N BASOPHIL # (test code = BA#) 0.0 K/mm3 0.0-0.2 N MANUAL DIFF REQUIRED (test code = NO DIFF/SCN CRITERIA MDIFF) CALCULI URINARY WITH [id number] 09:18:00 Test Item Value Reference Range Interpretation Comments ST COLOR (test Brown () code = COLST) ST SIZE (test code Comment mm () Specimens received = SIZST) as a mixture of whole stones andfragments. ST WEIGHT (test 39.9 mg () code = WGTST) ST COMPOSITION Comment () Percentage (test code = (Represents the % COMPST) composition) ST CA OXALATE 15 % () DIHYDRATE (test code = CAOXDST) ST CA OXALATE 80 % () MONOHYDRATE (test code = CAOXMST) ST CA PHOSPHATE 05 % () (test code = CAPHST) ST NIDUS (test No Nidus () code = NIDUSST) visualized ST COMMENT 2 (test Note: () Please do not submit code = CMTST2) specimens on Q-Tips, in tape, onfilt ers, or in liquids s uch as blood, urine or formalin.This m ay cause unnecessa ry biohazards, erroneous resultsand/or d elay in the processi ng of the specimen. ST PHOTO (test Comment () Calculi repor t with code = PHOTST) photograph wi ll follow via computer,mail o r medical screener deliver y. ST COMMENT 3 (test Comment () Physician questions code = CMTST3) regarding Saeed culi Analysis contactLabCorp at: [phone]. - XR FLUOROSCOPY 0-60 [id number] 07:32:00 Name: EMERSON ALMODOVAR [place] : 1970 Age/S: 48 / M [id number] [address] Unit #: [id number] Loc: [place] [address] Phys: Raul Benitez MD Acct: [id number] Dis Date: Status: [facility] [employer] PHONE #: [phone] Exam Date: 08/18/20181742 FAX #: Reason: LITHOTRIP ISY WITH STENT, CYSTO EXAMS: CPT: [id number] XR FLUOROSCOPY 0-60 MIN 21090 Fluoro Time: 36.4 DAP (Gy m2): Air Kerma (mGy): EXAMINATION: - XR FLUOROSCOPY 0-60 MIN. LOCATION: B2. HISTORY: LITHOTRIPISY WITH STENT, CYSTO. TECHNIQUE: Intraoperative fluoroscopy was utilized during surgery. Total reference air kerma was 24.15mGy. FINDINGS/ IMPRESSION: Intraoperative fluoroscopy was utilized during a urologic procedure with placement of a left ureteral stent. Please refer to operative report for detail. at 0732 Reported and signed by: Kendy Urena M.D. CC: Raul Benitez MD PAGE 1 Signed Report Name: EMERSON ALMODOVAR [place] : 1970 Age/S: 48 / M [address] Unit #: [id number] Loc: [place] [address] Phys: Raul Benitez MD Acct: [id number] Dis Date: Status: [email or web address] PHONE #: [phone] Exam Date: 08/18/2018 174 FAX #: Reason: LITHOTRIPISY WITH STENT, CYSTO EXAMS: CPT: [id number] XR FLUOROSCOPY 0-60 MIN 14581 Fluoro Time: 36.4 DAP (Gy m2): Air Kerma (mGy): <Continued> Technologist: Alfredo Nugent RT(R)(CT) Trngab Date/Time: 08/19/2018 (0732) [id number] Orig Print D/T: S: 08/19/2018 (0736) PAGE 2 Signed Report
[2019-12-31 10:30] VITALS: BP 122/95; TEMP 98.6; O2SAT 100
== END 2019-12-31 10:06 | disposition home or self-care (01) ==
LOC: ER 07:53
DX: R42 Dizziness and giddiness (principal); I10 Essential (primary) hypertension; Z88.0 Allergy status to penicillin
CPT/HCPCS: 93005; 85025; 36415; 84484; 80053; 70450; 71045; 99284; J7040

== ENCOUNTER 2020-03-04 16:51 | Emergency (ER) | payer OTHER ==
--- OUTSIDE RECORDS SUMMARY | 2020-03-04 16:53 | XMS REPORT | Clinical Summary ---
:1970 Author Organization [facility] Address [address] [place] [address] Care Team Providers Name Role Phone Unavailable [...] Nini Abnormal cardio vascular stress test after 03/04/2019 Social History Tobacco Use Types Packs/Day Years Used Date Never Assessed Sex Assigned at Date Recorded Not on file Job Start Date Occupation Industry Not on file Not on file Not on file Travel History Travel Start Travel End No recent travel history available. Last Filed Vital Signs Vital Sign Reading Time Taken Comments Blood Pressure 129/63 05/21/2019 2:23 PM [employer] Pulse 61 05/21/2019 2:23 PM [employer] Temperature - - Respiratory Rate 18 05/21/2019 1:57 PM [employer] Oxygen Saturation - - Inhaled Oxygen Concentration - - Weight 161 kg (355 lb) 05/21/2019 1:53 PM [employer] Height 172.7 cm (5' 8") 05/21/2019 1:53 PM [employer]URNIT[employer] Body Mass Index 53.98 05/21/2019 1:53 PM [employer]URNITURE [employer] Plan of Treatment Health Maintenance Due Date Last Done Comments INFLUENZA VACCINE 04/03/2020 Procedures Procedure Name Priority Date/Time Associated Diagnosis Comme nts CV CTA CORONARY Routine 05/21/2019 2:42 Chest pain, Results for this ARTERIES W CONTRAST PM [employer] unspecified type procedure are in Abnormal the results cardiovascular stress sectio n. test ESTIMATED GFR Routine 05/21/2019 1:51 Results fo r this PM [employer] procedure are i n the results section. POC CREATININE Routine 05/21/2019 1:51 Results f or this PM [employer] procedure are i n the results section. after 03/04/2019 Results Cv cta coronary arteries w contrast and ffr if needed (05/21/2019 2:42 PM FURNITURE [employer]) Specimen Narrative Performed At This result has an attachment that is no t available. [facility] Nuclear Cardiology and Card iac CT [address] [address] [address] Chest with Contrast R eport Pat.Name: EMERSON ALMODOVAR Pat.ID: [id number] .Date: 05/21/2019 Refer.MD: MCKAY EDWARDS MD Exam Time: 1:30:00 PM Study Type:C T Chest W Contrast Height: 68in BSA: 2.61 m2 Age: 9 1970,49Y Sex: MALE BP: 142/91 HR: 60 bpm Nuclear Tech:RT Ilene(R)(CT) Pat. Stat.:Outpatient Tape Vol: 53.98, CPT - 4: AFIB w Coronary [id number] Nuclear Event ID:[id number] Order ID: [id number] Reason for Study:Atrial fibrillation ablation procedur e Procedures: CT Flash mode SUMMARY: Technique: IV contrast was administered and sequential 0.[address] cuts were obtained through the chest using the Siemens Stream[employer] Softwareom Force CT scanner. Image post-processing consisting of multiplan ar and 3D reconstructions were performed using the [employer] workstation. Interactive image viewing, volumetric dis play, [...] Radiology Results In - 2018 7:47 PM [facility] Nuclear Cardiology and Cardiac CT [address] [place] [address] CT Chest with Contra st Report Pat.Name: EMERSON ALMODOVAR Pat.I D: [id number] St.Date: 05/21/2019 Refer .MD: MCKAY EDWARDS MD Exam Time: 1:30:00 PM Study Type:CT Chest W Contrast Height: 68in BSA: 2.61 m2 Age: 9 1970,49Y Sex: MALE BP: 142/91 HR: 60 bpm Nuclear Tech:RT Ilene(Hung)(CT) Pat. Stat.:Outpatient Tape Vol: 53.98, CPT - 4: AFIB w Coronary [id number] Nuclear Event ID:[id number] Order ID: [id number] Reason for Study:Atrial fibrillation abl ation procedure Procedures: CT Flash mode SUMMARY: Technique: IV contrast was administered and sequential 0.[address] cuts were obtained through the chest using th e Siemens Somatom Force CT scanner. Image post-processing consistin g of multiplanar and 3D reconstructions were performed using the [employer] workstation. Interactive image viewing, volumetric display, and [...] PM Kevin Dodge MD Performing Organization Address City/[facility]/Zipcode Phone Number [facility] [address] [place] [address] Estimated GFR (05/21/2019 1:51 PM FURNITURE PAINTER) Pathologist [facility] Estimated GFR >=90 mL/min/1.73 [facility] Comment: HOSPITAL Catergory Units Interpretation G1 >=90 [...] in 2014. Specimen Blood Performing Organization Address [facility] Number [facility] DEPARTMENT OF PATHOLOGY AND [address] [place] [address] [phone] [address] POC creatinine (05/21/2019 1:51 PM FURNITURE PAINTER) Pathologist [facility] POC creatinine 0.8 0.7 - 1.2 mg/dl [facility] Comment: HOSPITAL Meter ID: [id number] Hand Edger: Adan Barbosa Specimen Blood Performing Organization Address [facility]/Zipcode Phone Number [facility] DEPARTMENT OF PATHOLOGY AND [address] [place] [address] [phone] [address] after 03/04/2019 Insurance Payer Benefit Plan / Subscriber ID Effective Phone Address T ype Group Dates COMMERCIAL MISC MISC COMMERCIAL xxxxxxxxxxx 2014-Prese Commercial nt Advance Directives For more information, please contact: [phone] Type Date Recorded Patient [employer] 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
--- OUTSIDE RECORDS SUMMARY | 2020-03-04 16:54 | XMS REPORT | Continuity of Care Document ---
:1970 Author Organization [facility] t Address [address] [place] [address] Care Team Providers Name Role Phone Deni DAWSON Attending Clinician Payers Payer Name Policy Type Policy Number Effective Date Expiration Date S kleber COMMERCIAL xxxxxxxxxxx 2014 [place] MISCMISC 00:00:00 [employer] COMMERCIALxxxxxx /07/2014-Pr esentCommercial Problems Condition Condition Condition Status Onset Resolution Last Treating Co mments Source Name Details Category Date Date Treatment Clinician Date Microcytic Microcytic Problem Active [facility] Pulmonary Pulmonary Problem Active [facility] Hx Hx Problem Active [facility] pulmonary pulmonary [facility] - embolism [facility]ism [facility] Benign Benign Diagnosis Active [facility] essential essential [facility] - HTN [facility]N [facility] Vitamin D Vitamin D Problem Active [facility] deficiency deficiency [facility] Erectile Erectile Diagnosis Active [facility] dysfunctio dysfunctio Ludivina kes - n, n, Memoria unspecifie unspecifie l d erectile d erectile Ou tpati dysfunctio dysfunctio en t n type n type Clinics Prediabete Prediabete Diagnosis Active [facility] 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 [facility] GERD GERD Problem Active [facility] (gastroeso (gastroeso Ludivina kes - phageal phageal Memoria reflux reflux l disease) disease) Outpat i ent Clinics Morbid Morbid Problem Active [facility] obesity obesity [facility] Chronic Chronic Problem Active [facility] atrial atrial [facility] fibr[facility]ati fibrillati Me moria on on l [facility]pati ent Clinics Adult BMI Adult BMI Diagnosis Active [facility] 50.0-59.9 50.0-59.9 Luke s - kg/sq m kg/sq m [facility] History of History of Diagnosis Active [facility] kidney kidney [facility] stones [facility] Tension Tension Diagnosis Active [facility] headache [facility] History of History of Diagnosis Active [facility] cardiac cardiac [facility] radiofrequ radiofrequ Me moria ency ency l ablation ablation Outpat i ent Clinics Encounter Encounter Diagnosis Active [facility] for for [facility] a examinatio examinatio l n in adult n in adult Ou tpati ent Clinics Allergies, Adverse Reactions, Alerts Allergy Allergy Status Severity Reaction(s) Onset Inactive Treating Comm ents Source Name Type Date Date Clinician Iodinate DA Active SV 2018-07 [facility] 08-06 [place] Contrast 00:00: [facility] - Oral 00 are and IV [place] Penicill DA Active U 2018-07 [facility] ins 08-06 [place] 00:00: [facility] 00 are [place] Iodine Propensi Active Itching 2018-07 Face [place] ty to 18 flushed, Methodi adverse 00:00: erythmic st reaction 00 areas on s to forehead, drug chest Penicill Propensi Active Rash 2018-07 [place] ins ty to 115 Methodi adverse 00:00: st reaction 00 s to drug Penicill DA Active [place] 2018-07 [facility] ins 0-24 [place] [facility] Penicill DA Active SV 2013-0 [facility] ins 8-25 [place] 00:00: Soria 00 [facility] Amoxicil Adverse Active Info Not [facility] Reaction Available [facility] Social History Social Habit Start Date Stop Date Quantity Comments Source Sex Assigned [place] [facility] Medications Ordered Filled Start Stop Current Ordering Indication Dosage Frequency Signature Comments Components Source Medication Medication Date Date Medication? Clinician (SIG) Name Name Sildenafil Sildenafil Yes Lai [address] [facility] Citrate Citrate 01-06 [place] as needed Jorge es - 00:00: Memoria 00 l [facility] Rythmol Rythmol Yes Lai [address] [facility] L[facility]pez [facility] Propafenone Propafenone Yes Lai [address] [facility] HCl HCl [place] [facility] Calcium + Calcium + Yes Lai [address] [facility] D3 D3 [place] with a [facility] - meal Memoria l [facility] Vitamin B12 Vitamin B12 Yes Lai [address] [place] [facility] Multivitami Multivitami Yes Lai not [facility] n n [place] defined [facility] Metoprolol Metoprolol Yes Lai [address] Tartrate Tartrate [place] with food [facility] - [facility] Ferrous Ferrous Yes Lai not [facility] Sulfate Sulfate López defined [facility] Metoprolol Metoprolol Yes Lai [address] [address] Tartrate Tartrate [place] with food [facility] Vital Signs Vital Name Observation Time Observation Value Comments Source Systolic blood 2019-05-21 14:23:00 129 mm[Hg] Rosemarie n [facility] pressure Diastolic blood 2019-05-21 14:23:00 63 mm[Hg] Jacki on [facility] pressure Heart rate 2019-05-21 14:23:00 61 /min Sam Peck Respiratory rate 2019-05-21 13:57:00 18 /min Luis smith [facility] Body height 2019-05-21 13:53:00 172.7 cm Sam Peck Body weight 2019-05-21 13:53:00 161.027 kg Sam Peck BMI 2019-05-21 13:53:00 53.98 kg/m2 Sam Peck Procedures Procedure Date / Time Performed Performing Clinician Sourc e CV CTA CORONARY ARTERIES 2019-05-21 14:42:43 Deni Jose Castrou buffy Peck W CONTRAST POC CREATININE 2019-05-21 13:51:00 Jose Cheema Sam chaudhry ESTIMATED GFR 2019-05-21 13:51:00 Jose Cheema Sam chaudhry Plan of Care Planned Activity Planned Date Details Comments Source Future Scheduled 2020-04-03 INFLUENZA VACCINE [place] [facility] Test 00:00:00 [code = INFLUENZA VACCINE] Encounters Start End Encounter Admission Attending Care Care Encounter Source Date/Time Date/Time Type Type Clinicians Facility Department ID 2020-01-07 2020-01-07 [facility] [id number] [facility] 16:15:00 16:15:00 [facility] Medicine Medicine Outpati ent Clinics 2019-02-12 2019-02-12 [facility] [id number] [facility] 11:15:00 11:15:00 [facility] Medicine Medicine Outpati ent Clinics 2019-01-30 2019-01-30 [facility] [id number] [facility] 16:05:00 16:05:00 t Dana Translation [facility] Medicine Medicine Outpati ent Clinics 2018-09-08 2018-09-08 [facility] [id number] [facility] [address] 11:15:00 11:15:00 [facility] Medicine Medicine Outpati ent Clinics 2018-08-21 2018-08-21 [facility] [id number] [facility] 14:55:00 14:55:00 t Dana Translation [facility] Medicine Medicine Outpati ent Clinics 2018-07-20 2018-07-20 [facility] [id number] [address] 13:30:00 13:30:00 t Dana Translation [facility] Medicine Medicine Outpati ent Clinics 2018-07-20 2018-07-20 [facility] [id number] [address] 08:46:00 08:46:00 t Dana Translation [facility] Medicine Outpati ent Clinics 2018-04-20 2018-04-20 Outpatient Ruben Santos [id number] 11:07:00 11:07:00 [facility] 2017-12-12 2017-12-12 Outpatient Ruben Santos [id number] 10:30:00 10:30:00 [facility] Results Test Description Test Time Test Comments [...] CA) 8.4 mg/dL 8.5-10.1 L CBC W/AUTO [id number] 05:15:00 Test Item Value Reference Range Interpretation [...] BA#) 0.01 10 3/uL 0.0-0.1 N PROTHROMBIN [id number] 10:55:00 Test Item Value Reference Range Interpretation [...] and/or recurren t systemicemboliz ation. THROMBOPLASTIN TIME [id number] 10:55:00 Test Item Value Reference Range Interpretation Comments THROMBOPLASTIN TIME PARTIAL 36.0 SECONDS 25.1-36.5 N (test code = PTT) BASIC METABOLIC [id number] 10:53:00 Test Item Value Reference Range Interpretation [...] code 8.8 mg/dL 8.5-10.1 N = CA) [id number] 10:53:00 Test Item Value Reference Range Interpretation Comments MAGNESIUM (test code = MAG) 2.0 mg/dL 1.8-2.4 N CBC W/AUTO [id number] 10:37:00 Test Item Value Reference Range Interpretation [...] 0.02 10 3/uL 0.0-0.1 N TROPONIN I [id number] 21:25:00 Test Item Value Reference Range Interpretation Comments TROPONIN I RAPID 0.02 ng/mL 0.00-0.08 N - The use o f serial (test code = sampling and te sting TROPIRAP) protocol is a recommended pra ctice- An elevated tro ponin level alone is often not sufficient for diagnosis of my ocardial infarction. HEPATIC FUNCTION [id number] 20:07:00 Test Item Value Reference Range Interpretation [...] code = 275 Unit/L 26-192 H CK) [id number] 20:07:00 Test Item Value Reference Range Interpretation Comments LIPASE (test code = LIP) 225 Unit/L 114-286 N - XR CHEST 1 [id number] 19:50:00 Name: MELVIN ALMODOVAR [facility] : 1970 Age/S: 49 / M [address] Unit #: [id number] Loc: [place] [address] Phys: Ernesto Stewart MD Acct: [id number] Dis Date: Status: REG ER PHONE #: [phone] Exam Date: 04/26/20191939 FAX #: Reason: chest pain EXAMS: CPT: [id number] XR CHEST 1 V 39038 Fluoro Time: DAP (Gy m2): Air Kerma (mGy): AP VIEW OF THE CHEST LOCATION:R16 CLINICAL HISTORY: Chest pain. COMPARISON: No previous exam available. FINDINGS: The cardiomediastinal shadow is within normal limits. Pu lmonary vascular congestion is seen. The lungs are otherwise grossly clear. No pleural fluids. No acute bony abnormality is found. IMPRESSION: Pulmonary vascular congestion. at 1949 Reported and signed by: Jeri Baca M.D. CC: PAGE 1 Signed Report Name: MELVIN ALMOODVAR [facility] : 1970 Age/S: 49 / M [address] Unit #: [id number] Loc: [place] [address] Phys: Ernesto Stewart MD Acct: [id number] Dis Date: Status: REG ER PHONE #: [phone] Exam Date: 04/26/20191939 FAX #: Reason: chest pain EXAMS: CPT: [id number] XR CHEST 1 V 49759 Fluoro Time: DAP (Gy m2): Air Kerma (mGy): <Continued> Technologist: Hi Frye, RT(R)(CT); ... Trnscb Date/Time: 04/26/2019 (1949) [email or web address] Orig Print D/T: S: 04/26/2019 (1952) PAGE [...] diagnosis of my ocardial infarction. CBC W/O [id number] 19:36:00 Test Item Value Reference Range Interpretation [...] 9.60 fL 7.0-9.6 N MPV) CHEMISTRY 8 [id number] 19:30:00 Test Item Value Reference Range Interpretation [...] 63-147 N code = GFRBED) CHEMISTRY 8 [id number] 19:30:00 Test Item Value Reference Range Interpretation [...] N (test code = GFRBED) BASIC METABOLIC [id number] 09:34:00 Test Item Value Reference Range Interpretation [...] CA) 8.3 MG/DL 8.5-10.1 L BASIC METABOLIC [id number] 09:29:00 Test Item Value Reference Range Interpretation [...] = CA) 8.3 MG/DL 8.5-10.1 L PROTHROMBIN [id number] 09:27:00 Test Item Value Reference Range Interpretation Comments PT PATIENT (test code = PTP) 13.5 SECONDS 9.3-12.9 H INTERNATIONAL NORMAL RATIO 1.17 INR Unit 0.8-1.2 N (test code = INR) CBC W/AUTO [id number] 09:23:00 Test Item Value Reference Range Interpretation [...] DIFF/SCN CRITERIA MDIFF) - CT ABD PELVIS [id number] 16:55:00 Name: EMERSON ALMODOVAR [facility] : 1970 Age/S: 48 / M [address] Unit #: [id number] Loc: [place] [address] Phys: Jerad Adair MD Acct: [id number] Dis Date: Status: REG ER PHONE #: [phone] Exam Date: 10/28/2018 1642 FAX #: Reason: abd pain, coffe ground emesis and melena EXAMS: CPT: [id number] CT ABD PELVIS W/CONT 12500 CT ABDOMEN PELVIS WITH CONTRAST HISTORY: Abdominal [...] 1 Signed Report (CONTINUED) Name: EMERSON ALMODOVAR : 1970 Age/S: 48 / M [address] Unit #: [id number] Loc: [place] [address] Phys: Jerad Adair MD Acct: [id number] Dis Date: Status: REG ER PHONE #: [phone] Exam Date: 10/28/2018 1643 FAX #: Reason: abd pain, coffe ground emesis and melena EXAMS: CPT:[id number] CT ABD PELVIS W/CONT 78163 <Continued> 5.2 x 7 cm fat-containing umbilical [...] PEÑA RT(R)(CT)(MR) CTDI: DLP: Trnscb Date/Time: 10/28/2018 (1655) [id number].AM18 Orig Print D/T: S: 10/28/2018 (4028) CTDI: DLP: PAGE 2 Signed ReportUA RFLX MICR CULT IF [id number] 15:26:00 Test Item Value Reference Range Interpretation [...] Indication for Culture: OtherOther Indication: dizzyBASIC METABOLIC [id number] 15:16:00 Test Item Value Reference Range Interpretation [...] 8.5-10.1 L Completed by Nursing: NOHEPATIC FUNCTION [id number] 15:16:00 Test Item Value Reference Range Interpretation [...] N code = ALKP) Completed by Nursing: [id number] 15:16:00 Test Item Value Reference Range Interpretation Comments LIPASE (test code = LIP) 287 Unit/L 114-286 H Completed by Nursing: [id number] 15:16:00 Test Item Value Reference Range Interpretation [...] yby method. Completed by Nursing: NOBASIC METABOLIC [id number] 15:01:00 Test Item Value Reference Range Interpretation [...] 8.5-10.1 L Completed by Nursing: NOHEPATIC FUNCTION [id number] 15:01:00 Test Item Value Reference Range Interpretation [...] Unit/L 50-136 = ALKP) Completed by Nursing: [id number] 15:01:00 Test Item Value Reference Range Interpretation Comments LIPASE (test code = LIP) 287 Unit/L 114-286 H Completed by Nursing: [id number] 15:01:00 Test Item Value Reference Range Interpretation Comments TROPONIN-I (test code = TROPI) NG/ML 0.000-0.045 Completed by Nursing: NOCBC W/AUTO [id number] 14:51:00 Test Item Value Reference Range Interpretation [...] code = NO DIFF/SCN CRITERIA MDIFF) URINALYSIS [id number] 09:10:00 Test Item Value Reference Range Interpretation [...] = MUCU) TRACE /LPF NONE SEEN URINALYSIS [id number] 08:59:00 Test Item Value Reference Range Interpretation [...] DIPSTICK (test code = LEUU) COMPREHENSIVE METABOLIC [id number] 08:47:00 Test Item Value Reference Range Interpretation [...] LDL/HDL) 1.20 Ratio 1.48-3.22 Avg L URIC [id number] 08:47:00 Test Item Value Reference Range Interpretation Comments URIC ACID (test code = URIC) 4.0 MG/DL 3.5-7.2 N T4 [id number] 08:47:00 Test Item Value Reference Range Interpretation Comments T4 FREE (test code = T4F) 0.94 NG/DL 0.89-1.76 N THYROID STIMULATING [id number] 08:47:00 Test Item Value Reference Range Interpretation Comments THYROID STIMULATING HORMONE 2.260 mcIU/ML 0.340-4.820 N (test code = TSH) GLYCOSYLATED HEMOGLOBIN (HA1C)2018-09-05 08:43:00 Test Item Value Reference Range Interpretation Comments GLYCOSYLATED HEMOGLOBIN (HA1C) 6.3 % A1C 4.2-6.3 N (test code = GLYHGB) COMPREHENSIVE METABOLIC [id number] 08:34:00 Test Item Value Reference Range Interpretation [...] code = LDL/HDL) Ratio 1.48-3.22 Avg URIC [id number] 08:34:00 Test Item Value Reference Range Interpretation Comments URIC ACID (test code = URIC) MG/DL 3.5-7.2 T4 [id number] 08:34:00 Test Item Value Reference Range Interpretation Comments T4 FREE (test code = T4F) NG/DL 0.89-1.76 THYROID STIMULATING [id number] 08:34:00 Test Item Value Reference Range Interpretation Comments THYROID STIMULATING HORMONE (test mcIU/ML 0.340-4.820 code = TSH) CBC W/AUTO [id number] 08:20:00 Test Item Value Reference Range Interpretation [...] NO DIFF/SCN CRITERIA MDIFF) CALCULI URINARY WITH [id number] 09:18:00 Test Item Value Reference Range Interpretation [...] wi ll follow via computer,mail o r machine ii engraver deliver y. ST COMMENT 3 (test Comment () Physician questions code = CMTST3) regarding Saeed culi Analysis contactLabCorp at: [phone]. - XR FLUOROSCOPY 0-60 [id number] 07:32:00 Name: EMERSON ALMODOVAR [facility] : 1970 Age/S: 48 / M [address] Unit #: [id number] Loc: [place] [address] Phys: Raul Benitez MD Acct: [id number] Dis Date: Status: [facility] PHONE #: [phone] Exam Date: 08/18/2018 1874 FAX #: Reason: LITHOTRIP ISY WITH STENT, CYSTO EXAMS: CPT: [id number] XR FLUOROSCOPY 0-60 MIN 23386 Fluoro Time: 36.4 DAP (Gy m2): Air Kerma (mGy): EXAMINATION: - XR FLUOROSCOPY 0-60 MIN. LOCATION: B2. HISTORY: LITHOTRIPISY WITH STENT, CYSTO. TECHNIQUE: Intraoperative fluoroscopy was utilized during surgery. Total reference air kerma was 24.15mGy. FINDINGS/ IMPRESSION: Intraoperative fluoroscopy was utilized during a urologic procedure with placement of a left ureteral stent. Please refer to operative report for detail. at 3468 Reported and signed by: Kendy Urena M.D. CC: Raul Benitez MD PAGE 1 Signed Report Name[facility] [place] [facility] 1970 Age/S: 48 / M [address] Unit #: [id number] Loc: [place] [address] Phys: Raul Benitez MD Acct: [id number] Dis Date: Status: [facility] PHONE #: [phone] Exam Date: 08/18/2018 0129 FAX #: Reason: LITHOTRIPISY WITH STENT, CYSTO EXAMS: CPT: [id number] XR FLUOROSCOPY 0-60 MIN 06270 Fluoro Time: 36.4 DAP (Gy m2): Air Kerma (mGy): <Continued> Technologist: Alfredo Nugent, RT(R)(CT) Trnscb Date/Time: 08/19/2018 (0732) [id number] Orig Print D/T: S: 08/19/2018 (0736) PAGE 2 Signed Report
--- OUTSIDE RECORDS SUMMARY | 2020-03-04 16:54 | XMS REPORT ---
:1970 Author Organization [employer] Care Team Providers Name Role Phone Rene Lai Provider Role Unavailable Allergies, Adverse Reactions, Alerts Substance Reaction Event Type Amoxicillin Info Not Available Drug Allergy Problems Problem Type Condition Code Onset Dates Condition Statu s Problem Pulmonary embolism I26.99 Active Problem Prediabetes R73.09 Active Problem Onychomycosis B35.1 Active Problem Adult BMI 50.0-59.9 kg/sq m Z68.43 Active Assessment GERD (gastroesophageal reflux K21.9 Active disease) Problem Erectile dysfunction, unspecified N52.9 Active erectile dysfunction type Assessment Microcytic anemia D50.9 Active Assessment History of kidney stones Z87.442 Act marlen Problem Tension headache G44.209 Active Problem GERD (gastroesophageal reflux K21.9 Active disease) Problem Morbid obesity E66.01 Active Problem Benign essential HTN I10 Active Problem Vitamin D deficiency E55.9 Active Assessment Erectile dysfunction, unspecified N52.9 Active erectile dysfunction type Assessment Chronic atrial fibrillation I48.2 Active Assessment Adult BMI 50.0-59.9 kg/sq m Z68.43 Active Assessment Prediabetes R73.09 Active Problem Chronic atrial fibrillation I48.2 Active Assessment Tension headache G44.209 Active Assessment Benign essential HTN I10 Active Problem Microcytic anemia D50.9 Active Assessment History of cardiac radiofrequency Z98.890 Active ablation Assessment Encounter for wellness examination Z00.00 Active in adult Problem Hx pulmonary embolism Z86.711 Active Medications Medication Code Code Instructions Start End Status Dosage System Date Date Ferrous Sulfate [facility] [address]-18 325 MG Orally Acti ve not defined Propafenone HCl ND 87523997992 225 MG Orally Active 1 tablet every 8 hrs Rythmol ND 79640436276 225 MG Orally Inactive 1 tab let every 8 hrs Vitamin B12 ND 89940866652 1000 MCG Orally Active 1 tablet Once a day Multivitamin ND 53927674679 - Orally Active not defined Calcium + D3 ND 38929497839 600-200 MG-UNIT Active 1 tablet Orally Once a with a day meal Metoprolol [facility] 91602238302 25 MG Orally Active 1 ta blet Tartrate Twice a day with food Metoprolol ND 17181574968 25 MG Orally Active 1 ta blet Tartrate Twice a day with food Sildenafil [facility] 54638284012 100 MG Orally January 06, Active 1 tablet Citrate Once a day PRN 2019 as needed Results No Known Results Summary Purpose [employer] Submission
[2020-03-04] MEDS ORDERED: dexAMETHasone 10 MG/ML VIAL ONE (17:32)
[2020-03-04] MEDS ORDERED: ALBUTEROL 2.5 MG/3 ML NEB SOL ONE (17:32)
[2020-03-04] MEDS ORDERED: NA CHLORIDE 0.9% 1,000 ML ONE (17:32)
[2020-03-04 17:54] LABS: Basophils % 0.7 % (0-1.3); Hematocrit 44.7 % (39.6-49.0); Lymphocytes % 28.4 % (15.3-44.8); MPV 7.9 fL (7.6-11.3); RBC Red Blood Cell Count 4.96 M/uL (4.33-5.43)
[2020-03-04 17:56] LABS: Protime INR 1.09
--- NOTE | 2020-03-04 18:02 | RAD REPORT ---
EXAM DESCRIPTION: RAD - Chest Single View - 03/04/2020 5:50 pm CLINICAL HISTORY: SOB Chest pain. COMPARISON: Chest Single View dated 12/31/2019; Chest Single View dated 04/30/2019; Abdomen 1 View (K UB) dated 08/07/2018; Chest Single View dated 03/23/2018 FINDINGS: Portable technique limits examination quality. The lungs are grossly clear. The heart is upper limit of normal in size. No displaced fractures. IMPRESSION: No acute intrathoracic process suspected.
--- NOTE | 2020-03-04 18:09 | RAD REPORT ---
EXAM DESCRIPTION: CT - Chest For Pe Angio - 03/04/2020 5:53 pm CLINICAL HISTORY: Chest pain. SOB COMPARISON: CTANGIO CHEST FOR PE dated 01/15/2009 TECHNIQUE: CT angiogram of the pulmonary arteries was performed with MIP. All CT scans are performed using dose optimization technique as appropriate and may include automated exposure control or mA/KV adjustment according to patient size. FINDINGS: No evidence of pulmonary thromboembolism. No acute aortic finding demonstrated. The lungs are clear. No significant pericardial or pleural fluid. No concerning bony finding. Postsurgical changes about the stomach. IMPRESSION: No evidence of pulmonary thromboembolism. No acute lung findings.
[2020-03-04 18:12] LABS: ALT/SGPT 47 U/L (12-78); AST/SGOT 27 U/L (15-37); Albumin 3.6 g/dL (3.4-5.0); Alkaline Phosphatase 113 U/L (45-117); BUN Blood Urea Nitrogen 18 mg/dL (7-18); Bicarbonate 25 mmol/L (21-32); Bilirubin Direct 0.2 mg/dL (0-0.2); Bilirubin Total 0.8 mg/dL (0.2-1.0); Glucose Level 153 mg/dL (74-106); Magnesium 2.3 mg/dL (1.8-2.4); NT PRO-BNP 21 pg/mL (<125); Potassium 3.8 mmol/L (3.5-5.1); Protein, Total 7.6 g/dL (6.4-8.2); Sodium Level 140 mmol/L (136-145); Troponin (Emerg Dept Use Only) < 0.02 ng/mL (0.0-0.045)
--- NOTE | 2020-03-04 19:14 | ER ---
Nurse's Notes [facility] Name: Syed Chambers Age: 49 yrs Sex: Male : 1970 Arrival Date: 03/04/2020 Time: 16:54 Bed 16 Private MD: Lai López Diagnosis: Acute upper respiratory infection, unspecified Presentation: 03/04 17:13 Chief complaint: Patient states: SOB and Fatigue with exertion, chest tightness on the ca1 L side x 1 week. Hx of PE. Hx of A-fib, cardiac ablated. Coronavirus screen: Client denies travel out of the [place] in the last 14 days. fatigue, shortness of breath, Client presents with at least one sign or symptom that may indicate coronavirus-19. Standard/surgical mask placed on the client. Provider contacted for isolation considerations. Client reports previous positive COVID test result. Date of collection: February 19, 2020 Staff notified of need for isolation. Ebola Screen: Patient negative for fever greater than or equal to 101.5 degrees Fahrenheit, and additional compatible Ebola Virus Disease symptoms Patient denies exposure to infectious person. Patient denies travel to an Ebola-affected area in the 21 days before illness onset. No symptoms or risks identified at this time. Initial Sepsis Screen: Does the patient meet any 2 criteria? No. Patient's initial sepsis screen is negative. Does the patient have a suspected source of infection? No. Patient's initial sepsis screen is negative. Risk Assessment: Do you want to hurt yourself or someone else? Patient reports no desire to harm self or others. Onset of symptoms was March 04, 2020. 17:13 Method Of Arrival: Ambulatory ca1 17:13 Acuity: MATT 3 ca1 Historical: - Allergies: 17:18 PENICILLINS; ca1 - PMHx: 17:18 Atrial Fib; Hypertension; PE; ca1 - PSHx: 17:18 Knee surgery; Cardiac ablation; ca1 - Immunization history:: Adult Immunizations up to date. - Social history:: Smoking status: Patient denies any tobacco usage or history of. Screenin:45 Abuse screen: Denies threats or abuse. Denies injuries from another. Nutritional jr10 screening: No deficits noted. Tuberculosis screening: No symptoms or risk factors identified. Fall Risk IV access (20 points). Assessment: 17:20 General: Appears in no apparent distress. Behavior is calm, cooperative, appropriate jr10 for age. Pain: Complains of pain in left anterior chest wall Pain does not radiate. Pain currently is 7 out of 10 on a pain scale. Quality of pain is described as aching. 17:20 Neuro: No deficits noted. Cardiovascular: Reports chest pain, left side anterior chest jr10 pressure worse with inspiration Capillary refill < 3 seconds Patient's skin is warm and dry. Pulses are all present. Edema is absent. Rhythm is sinus rhythm. Respiratory: Reports shortness of breath on exertion Airway is patent Respiratory effort is even, unlabored, Respiratory pattern is regular, symmetrical, Breath sounds are clear bilaterally. the patient has mild shortness of breath. GI: No deficits noted. No signs and/or symptoms were reported involving the gastrointestinal system. : No deficits noted. No signs and/or symptoms were reported regarding the genitourinary system. EENT: No deficits noted. No signs and/or symptoms were reported regarding the EENT system. Derm: No deficits noted. No signs and/or symptoms reported regarding the dermatologic system. Musculoskeletal: No deficits noted. No signs and/or symptoms reported regarding the musculoskeletal system. Vital Signs: 17:13 BP 151 / 97; Pulse 111; Resp 19 S; Temp 97.2(TE); Pulse Ox 95% on R/A; Weight 163.29 kg ca1 (R); Height 5 ft. 8 in. (172.72 cm) (R); Pain 0/10; 19:07 BP 155 / 104; Pulse 92; Resp 20; Pulse Ox 99% on R/A; jr10 19:33 BP 150 / 100; Pulse 89; Resp 18; Pulse Ox 99% on R/A; mg2 17:13 Body Mass Index 54.74 (163.29 kg, 172.72 cm) ca1 ED Course: 16:54 Patient arrived in ED. mr 16:54 Lai López DO is Private Physician. mr 17:07 Nilo Millard NP is PHCP. pm1 17:07 Dennis Leija MD is Attending Physician. pm1 17:17 Triage completed. ca1 17:18 Arm band placed on right wrist. ca1 17:18 Patient has correct armband on for positive identification. Placed in gown. Bed in low ca1 position. Call light in reach. Side rails up X2. helper metal hanging on. Pulse ox on. NIBP on. 17:23 Theresa Emanuel, RN is Primary Nurse. jr10 17:46 No provider procedures requiring assistance completed. Inserted saline lock: 20 gauge jr10 in left upper arm, using aseptic technique. IV is patent, is intact, with fluids infusing freely, with good blood return, Flushed. 17:50 XRAY Chest (1 view) In Process Unspecified. EDMS 17:54 CT Chest For PE Angio In Process Unspecified. EDMS 19:08 Report given to JAQUELIN Aguiar. jr10 19:33 IV discontinued, intact, bleeding controlled, No redness/swelling at site. Pressure mg2 dressing applied. Administered Medications: 17:46 Drug: NS 0.9% 1000 ml Route: IV; Rate: 1000 ml; Site: left upper arm; jr10 18:10 Drug: Decadron - Dexamethasone 10 mg Route: IVP; Site: left upper arm; jr10 18:36 Follow up: Response: No adverse reaction jr10 18:10 Drug: Albuterol 2.5 mg Route: Inhalation; jr10 18:36 Follow up: Response: No adverse reaction jr10 Outcome: 19:13 Discharge ordered by MD. pm1 19:33 Discharged to home ambulatory. mg2 19:33 Condition: good 19:33 Discharge instructions given to patient, Instructed on discharge instructions, follow up and referral plans. medication usage, Demonstrated understanding of instructions, follow-up care, medications, Prescriptions given X 2. 19:33 Patient left the ED. mg2 Signatures: Dispatcher [employer] EDSD Tricia Emanuel VeniceNilo, MOONER MOONER pm1 Ernesto Booker RN RN mg2 Bing Roque RN RN ca1 Theresa Emanuel RN RN jr10
--- NOTE | 2020-03-04 19:14 | EDPHYS ---
Physician Documentation [facility] Name: Syed Chambers Age: 49 yrs Sex: Male : 1970 Arrival Date: 03/04/2020 Time: 16:54 Bed 16 Private MD: Lai López ED Physician Dennis Leija HPI: 03/04 17:17 This 49 yrs old Male presents to ER via Ambulatory with complaints of pm1 Shortness of breath. 17:17 The patient has shortness of breath with light activity. Onset: The symptoms/episode pm1 began/occurred 1 week(s) ago. The patient's shortness of breath is aggravated by exertion, talking. Associated signs and symptoms: Pertinent positives: cough with exertion. Severity of symptoms: in the emergency department the symptoms are unchanged. The patient has been recently seen by a physician: the patient's primary care provider, with similar presenting complaints, and was sent to the [facility] Emergency Department for further evaluation. Patient recently diagnosed with covid and has completed quarantine for 10 days. Returned to work but reports feeling short of breath with exertion for the past 1 week. When he gets short of breath he has a cough with a small amount of sputum. . Historical: - Allergies: 17:18 PENICILLINS; ca1 - PMHx: 17:18 Atrial Fib; Hypertension; PE; ca1 - PSHx: 17:18 Knee surgery; Cardiac ablation; ca1 - Immunization history:: Adult Immunizations up to date. - Social history:: Smoking status: Patient denies any tobacco usage or history of. ROS: 17:21 Constitutional: Negative for fever, chills, and weight loss, Neck: Negative for injury, pm1 pain, and swelling, Cardiovascular: Negative for chest pain, palpitations, and edema. 17:21 Abdomen/GI: Negative for abdominal pain, nausea, vomiting, diarrhea, and constipation, Back: Negative for injury and pain, MS/Extremity: Negative for injury and deformity, Skin: Negative for injury, rash, and discoloration, Neuro: Negative for headache, weakness, numbness, tingling, and seizure. 17:21 Respiratory: Positive for cough, shortness of breath, Negative for wheezing. Exam: 17:21 Constitutional: This is a well developed, well nourished patient who is awake, alert, pm1 and in no acute distress. Head/Face: Normocephalic, atraumatic. Neck: Trachea midline, no thyromegaly or masses palpated, and no cervical lymphadenopathy. Supple, full range of motion without nuchal rigidity, or vertebral point tenderness. No Meningismus. Chest/axilla: Normal chest wall appearance and motion. Nontender with no deformity. No lesions are appreciated. Cardiovascular: Regular rate and rhythm with a normal S1 and S2. No gallops, murmurs, or rubs. Normal PMI, no JVD. No pulse deficits. Respiratory: Lungs have equal breath sounds bilaterally, clear to auscultation and percussion. No rales, rhonchi or wheezes noted. No increased work of breathing, no retractions or nasal flaring. 17:21 Back: No spinal tenderness. No costovertebral tenderness. Full range of motion. Skin: Warm, dry with normal turgor. Normal color with no rashes, no lesions, and no evidence of cellulitis. MS/ Extremity: Pulses equal, no cyanosis. Neurovascular intact. Full, normal range of motion. 17:21 Abdomen/GI: Exam negative for acute changes, Inspection: abdomen appears normal, Palpation: abdomen is soft and non-tender, in all quadrants. 17:21 Neuro: Exam negative for acute changes, Orientation: is normal, Mentation: is normal, Motor: is normal, moves all fours. Vital Signs: 17:13 BP 151 / 97; Pulse 111; Resp 19 S; Temp 97.2(TE); Pulse Ox 95% on R/A; Weight 163.29 kg ca1 (R); Height 5 ft. 8 in. (172.72 cm) (R); Pain 0/10; 19:07 BP 155 / 104; Pulse 92; Resp 20; Pulse Ox 99% on R/A; jr10 19:33 BP 150 / 100; Pulse 89; Resp 18; Pulse Ox 99% on R/A; mg2 17:13 Body Mass Index 54.74 (163.29 kg, 172.72 cm) ca1 MDM: 17:08 Patient medically screened. pm1 19:11 Data reviewed: nurses notes. pm1 19:11 Data interpreted: Pulse oximetry: on room air is 99 %. Interpretation: normal. pm1 19:11 Counseling: I had a detailed discussion with the patient and/or guardian regarding: the pm1 historical points, exam findings, and any diagnostic results supporting the discharge/admit diagnosis, lab results, radiology results, the need for outpatient follow up, to return to the emergency department if symptoms worsen or persist or if there are any questions or concerns that arise at home. 03/04 17:13 Order name: Basic Metabolic Panel; Complete Time: 18:23 pm1 03/04 17:13 Order name: CBC with Diff; Complete Time: 18:23 pm1 03/04 17:13 Order name: LFT's; Complete Time: 18:23 pm1 03/04 17:13 Order name: Magnesium; Complete Time: 18:23 pm1 03/04 17:13 Order name: NT PRO-BNP; Complete Time: 18:23 pm1 03/04 17:13 Order name: PT-INR; Complete Time: 18:23 pm1 03/04 17:13 Order name: Troponin (emerg Dept Use Only); Complete Time: 18:23 pm1 03/04 17:13 Order name: XRAY Chest (1 view); Complete Time: 18:23 pm1 03/04 17:13 Order name: EKG; Complete Time: 17:18 pm1 03/04 17:13 Order name: Cardiac monitoring; Complete Time: 17:46 pm1 03/04 17:18 Order name: CT Chest For PE Angio; Complete Time: 18:23 pm1 03/04 17:13 Order name: EKG - Nurse/Tech; Complete Time: 17:46 pm1 03/04 17:13 Order name: IV Saline Lock; Complete Time: 17:47 pm1 03/04 17:13 Order name: Labs collected and sent; Complete Time: 17:47 pm1 03/04 17:13 Order name: O2 Per Protocol; Complete Time: 17:25 pm1 03/04 17:13 Order name: O2 Sat Monitoring; Complete Time: 17:25 pm1 Administered Medications: 17:46 Drug: NS 0.9% 1000 ml Route: IV; Rate: 1000 ml; Site: left upper arm; 18:10 Drug: Decadron - Dexamethasone 10 mg Route: IVP; Site: left upper arm; 10 18:36 Follow up: Response: No adverse reaction 18:10 Drug: Albuterol 2.5 mg Route: Inhalation; jr10 18:36 Follow up: Response: No adverse reaction jr10 Disposition: 03/04/20 19:13 Discharged to Home. Impression: Acute upper respiratory infection, unspecified. - Condition is Stable. - Discharge Instructions: Upper Respiratory Infection, Adult. - Prescriptions for Prednisone 20 mg Oral Tablet - take 1 tablet by ORAL route once daily for 10 days; 20 tablet. Albuterol Sulfate 90 mcg/actuation - inhale 1-2 puff by INHALATION route every 4-6 hours; 1 Inhaler. - Medication Reconciliation Form, Thank You Letter, Antibiotic Education, Prescription Opioid Use form. - Follow up: Private Physician; When: 2 - 3 days; Reason: Recheck today's complaints, Continuance of care, Re-evaluation by your physician. Follow up: Emergency Department; When: As needed; Reason: Worsening of condition. - Problem is new. - Symptoms have improved. Signatures: Dispatcher [employer] EDMS Nilo Millard NP MORTGAGE CONSULTANT pm1 Ernesto Booker RN RN mg2 Bing Roque RN RN ca1 Theresa Emanuel RN RN jr10 Corrections: (The following items were deleted from the chart) 19:33 19:13 03/04/2020 19:13 Discharged to Home. Impression: Acute upper respiratory mg2 infection, unspecified. Condition is Stable. Forms are Medication Reconciliation Form, Thank You Letter, Antibiotic Education, Prescription Opioid Use. Follow up: Private Physician; When: 2 - 3 days; Reason: Recheck today's complaints, Continuance of care, Re-evaluation by your physician. Follow up: Emergency Department; When: As needed; Reason: Worsening of condition. Problem is new. Symptoms have improved. pm1
--- NOTE | 2020-03-05 12:23 | EKG ---
Test Date: 2020-03-04 Test Time: 17:37:01 Workers Compensation Attorney: ANEL MEASUREMENT RESULTS: Intervals: Rate: 104 [place]: 164 QRSD: 80 QT: 336 QTc: 441 [place]: P: 43 [place]: 164 QRS: 41 T: 14 INTERPRETIVE STATEMENTS: Sinus tachycardia Cannot rule out Anterior infarct, age undetermined Abnormal ECG Compared to ECG 12/31/2019 09:19:35 Myocardial infarct finding now present Sinus rhythm no longer present Electronically Signed On 03-05-20 12:22:43 CDT by Geoff Sheehan
[2020-03-06 21:29] VITALS: TEMP 97.2
[2020-03-06 21:30] VITALS: O2SAT 99
[2020-03-06 21:35] VITALS: BP 150/100
== END 2020-03-04 19:33 | disposition home or self-care (01) ==
LOC: ER 16:51
DX: J06.9 Acute upper respiratory infection, unspecified (principal); Z86.19 Personal history of other infectious and parasitic diseases; Z88.0 Allergy status to penicillin
CPT/HCPCS: 93005; 85025; 80048; 36415; 83735; 85610; 82565; 80076; 84484; 83880; 71275; 71045; Q9967; J1100; J7030; 96374; 99285

== ENCOUNTER 2020-07-06 11:38 | Emergency (ER) | payer OTHER, SELFPAY ==
--- OUTSIDE RECORDS SUMMARY | 2020-07-06 11:41 | XMS REPORT | Clinical Summary ---
:1970 Author Organization [facility] Address [address] [place] [address] Care Team Providers Name Role Phone Unavailable Primary Care Provider Unavailable Allergies Active Allergy Reactions Severity Noted Date Comments Iodine Itching Medium 05/21/2019 Face flushed, e rythmic areas on forehead, chest Penicillins Rash Medium 05/18/2019 Medications No known medications Active Problems Not on file Social History Tobacco Use Types Packs/Day Years Used Date Never Assessed Sex Assigned at Date Recorded Not on file Last Filed Vital Signs Not on file Plan of Treatment Health Maintenance Due Date Last Done Comments COVID-19 VACCINE (#1) 1986 INFLUENZA VACCINE 02/02/2020 COLONOSCOPY SCREENING 2020 SHINGLES VACCINES (#1) 2020 Results Not on fileafter 07/06/2019 Insurance Payer Benefit Plan / Subscriber ID Effective Phone Address T ype Group Dates COMMERCIAL MISC MISC COMMERCIAL [id number] 2014-Prese Commercial nt Advance Directives For more information, please contact: [phone] Type Date Recorded Patient Varnish Remover Explanati on Advance Directives, Living Will and Medical Power of Polysomnography Tech
--- OUTSIDE RECORDS SUMMARY | 2020-07-06 11:42 | XMS REPORT | Continuity of Care Document ---
:1970 Author Organization [facility] t Address [address] [place] [address] Care Team Providers Name Role Phone Unavailable Unavailable Unavailable Payers Payer Name Policy Type Policy Number Effective Date Expiration Date S ource Problems Condition Condition Condition Status Onset Resolution Last Treating Co mments Source Name Details Category Date Date Treatment Clinician Date Microcytic Microcytic Problem Active [facility] Pulmonary Pulmonary Problem Active [facility] embolism [facility]ism [facility] Hx Hx Problem Active [facility] pulmonary pulmonary [facility] embolism [facility]ism [facility] Benign Benign Problem Active [facility] essential essential [facility] - HTN HTN [facility] Vitamin D Vitamin D Problem Active [facility] deficiency deficiency [facility] Erectile Erectile Problem Active [facility] dysfunctio dysfunctio Ludivina kes - n, n, Memoria unspecifie unspecifie l d erectile d erectile Ou tpati dysfunctio dysfunctio en t n type n type Clinics Prediabete Prediabete Problem Active [facility] s [facility] 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 [facility] GERD GERD Problem Active [facility] (gastroeso (gastroeso Ludivina kes - phageal phageal Memoria reflux reflux l disease) disease) Outpat i ent Clinics Morbid Morbid Problem Active [facility] obesity obesity [facility] Chronic Chronic Problem Active [facility] atrial atrial [facility] fibrillati fibrillati Me moria on on l [facility] Adult BMI Adult BMI Problem Active [facility] 50.0-59.9 50.0-59.9 Luke s - kg/sq m kg/sq m [facility] Tension Tension Problem Active [facility] headache headache [facility] Allergies, Adverse Reactions, Alerts Allergy Allergy Status Severity Reaction(s) Onset Inactive Treating Comm ents Source Name Type Date Date Clinician Iodinate DA Active SV 2018-07 [facility] 08-06 [place] Contrast 00:00: [facility] - Oral 00 are and IV [place] Penicill DA Active U 2018-07 [facility] ins 2 [place] 00:00: [facility] 00 are [place] Iodine Propensi Active Itching 2018-07 Face [place] ty to 1-18 flushed, Methodi adverse 00:00: erythmic st reaction 00 areas on s to forehead, drug chest Penicill Propensi Active Rash 2018-07 [place] ins ty to 1-15 Methodi adverse 00:00: st reaction 00 s to drug Penicill DA Active [place] 2018-07 [facility] ins 0-24 [place] [facility] Penicill DA Active SV [facility] ins 8-25 [place] 00:00: [facility] Amoxicil Adverse Active Info Not [facility] Reaction Available [facility] Social History Social Habit Start Date Stop Date Quantity Comments Source Sex Assigned At [place] Medications Ordered Filled Start Stop Current Ordering Indication Dosage Frequency Signature Comments Components Source Medication Medication Date Date Medication? Clinician (SIG) Name Name Sildenafil Sildenafil Yes Lai [address] [facility] Citrate Citrate 01-06 López as needed Jorge es - 00:00: [facility]oria 00 l [facility] Rythmol Rythmol Yes Lai [address] [facility] Propafenone Propafenone Yes Lai [address] [facility] HCl HCl [facility] Calcium + Calcium + Yes Lai [address] [facility] D3 D3 [place] with a [facility] Vitamin B12 Vitamin B12 Yes Lai [address] [facility] [place] [facility] Multivitami Multivitami Yes Lai not [facility] n n [place] defined [facility] Metoprolol Metoprolol Yes Lai [address] [facility] Tartrate Tartrate [place]pez with food [facility] Ferrous Ferrous Yes Lai not [facility] Sulfate Sulfate [facility] defined [facility] Metoprolol Metoprolol Yes Lai [address] [facility] [address] Tartrate Tartrate [place]ópez with food [facility] Procedures This patient has no known procedures. Plan of Care Planned Activity Planned Date Details Comments Source Future Scheduled 2020 COLONOSCOPY SCREENING [place] [facility] 00:00:00 [code = COLONOSCOPY SCREENING] Future Scheduled 2020 SHINGLES VACCINES [place] [facility] 00:00:00 (#1) [code = SHINGLES VACCINES (#1)] Future Scheduled 2020-02-02 INFLUENZA VACCINE [place] [facility] 00:00:00 [code = INFLUENZA VACCINE] Future Scheduled 1986 COVID-19 VACCINE (#1) [place] [facility] 00:00:00 [code = COVID-19 VACCINE (#1)] Encounters Start End Encounter Admission Attending Care Care Encounter Source Date/Time Date/Time Type Type Clinicians Facility Department ID 2020-03-04 2020-03-04 Outpatient Ruben Santos [id number] [facility] 09:53:00 09:53:[address] [facility] Medicine l Medicine Outpati ent Clinics 2020-01-07 2020-01-07 Outpatient Ruben Santos [id number] [facility] 16:15:00 16:15:00 t [email or web address] [facility] Medicine l Medicine Outpati ent Clinics 2019-02-12 2019-02-12 [facility] [id number] [facility] 11:15:00 11:15:00 t [facility] - [facility] Medicine Medicine Outpati ent Clinics 2019-01-30 2019-01-30 [facility] [id number] [address] 16:05:00 16:05:00 t [facility] Medicine Outpati ent Clinics 2018-09-08 2018-09-08 [facility] [id number] [address] 11:15:00 11:15:00 t [employer] s - Drive [facility] Medicine Medicine Outpati ent Clinics 2018-08-21 2018-08-21 [facility] [id number] 14:55:00 14:55:00 t [facility] Medicine Outpati ent Clinics 2018-07-20 2018-07-20 [facility] [id number] 13:30:00 13:30:00 t [facility] Medicine Outpati ent Clinics 2018-07-20 2018-07-20 [facility] [id number] 08:46:00 08:46:00 t [facility] Medicine Outpati ent Clinics 2018-04-20 2018-04-20 [facility] [id number] 11:07:00 11:07:00 t [facility] Drive [facility] Medicine Outpati ent Clinics 2017-12-12 2017-12-12 [facility] [id number] 10:30:00 10:30:00 [facility] Medicine Outpati ent Clinics Results Test Description [...] CA) 8.4 mg/dL 8.5-10.1 L CBC W/AUTO [id number] 05:15:00 Test Item Value Reference Range Interpretation [...] BA#) 0.01 10 3/uL 0.0-0.1 N PROTHROMBIN [id number] 10:55:00 Test Item Value Reference Range Interpretation [...] and/or recurren t systemicemboliz ation. THROMBOPLASTIN TIME [id number] 10:55:00 Test Item Value Reference Range Interpretation Comments THROMBOPLASTIN TIME PARTIAL 36.0 SECONDS 25.1-36.5 N (test code = PTT) BASIC METABOLIC [id number] 10:53:00 Test Item Value Reference Range Interpretation [...] code 8.8 mg/dL 8.5-10.1 N = CA) [id number] 10:53:00 Test Item Value Reference Range Interpretation Comments MAGNESIUM (test code = MAG) 2.0 mg/dL 1.8-2.4 N CBC W/AUTO [id number] 10:37:00 Test Item Value Reference Range Interpretation [...] 0.02 10 3/uL 0.0-0.1 N TROPONIN I [id number] 21:25:00 Test Item Value Reference Range Interpretation Comments TROPONIN I RAPID 0.02 ng/mL 0.00-0.08 N - The use o f serial (test code = sampling and te sting TROPIRAP) protocol is a recommended pra ctice- An elevated tro ponin level alone is often not sufficient for diagnosis of my ocardial infarction. HEPATIC FUNCTION [id number] 20:07:00 Test Item Value Reference Range Interpretation [...] code = 275 Unit/L 26-192 H CK) [id number] 20:07:00 Test Item Value Reference Range Interpretation Comments LIPASE (test code = LIP) 225 Unit/L 114-286 N - XR CHEST 1 [id number] 19:50:00 Name: MELVIN ALMODOVAR [facility] : 1970 Age/S: 49 / M [address] Unit #: [id number] Loc: [place] [address] Phys: Ernesto Stewart MD Acct: [id number] Dis Date: Status: REG ER PHONE #: [phone] Exam Date: 04/26/20191939 FAX #: Reason: chest pain EXAMS: CPT: [id number] XR CHEST 1 V 72990 Fluoro Time: DAP (Gy m2): Air Kerma [...] PAGE 1 Signed Report [facility] 1970 Age/S: 49 / M [address] [place] Unit #: [id number] Loc: [place] [address] Phys: Ernesto Stewart MD Acct: [id number] Dis Date: Status: REG ER PHONE #: [phone] Exam Date: 04/26/20191939 FAX #: Reason: chest pain EXAMS: CPT: [id number] XR CHEST 1 V 71088 Fluoro Time: DAP (Gy m2): Air Kerma [...] diagnosis of my ocardial infarction. CBC W/O [id number] 19:36:00 Test Item Value Reference Range Interpretation [...] 9.60 fL 7.0-9.6 N MPV) CHEMISTRY 8 [id number] 19:30:00 Test Item Value Reference Range Interpretation [...] 63-147 N code = GFRBED) CHEMISTRY 8 [id number] 19:30:00 Test Item Value Reference Range Interpretation [...] N (test code = GFRBED) BASIC METABOLIC [id number] 09:34:00 Test Item Value Reference Range Interpretation [...] CA) 8.3 MG/DL 8.5-10.1 L BASIC METABOLIC [id number] 09:29:00 Test Item Value Reference Range Interpretation [...] = CA) 8.3 MG/DL 8.5-10.1 L PROTHROMBIN [id number] 09:27:00 Test Item Value Reference Range Interpretation Comments PT PATIENT (test code = PTP) 13.5 SECONDS 9.3-12.9 H INTERNATIONAL NORMAL RATIO 1.17 INR Unit 0.8-1.2 N (test code = INR) CBC W/AUTO [id number] 09:23:00 Test Item Value Reference Range Interpretation [...] DIFF/SCN CRITERIA MDIFF) - CT ABD PELVIS [id number] 16:55:00 Name: EMERSON ALMODOVAR [facility] : 1970 Age/S: 48 / M [id number] Unit #: [id number] Loc: [place] [address] Phys: Jerad Adair MD Acct: [id number] Dis Date: Status: REG ER PHONE #: [phone] Exam Date: 10/28/2018 1643 FAX #: Reason: abd pain, coffe ground emesis and melena EXAMS: CPT: [id number] CT ABD PELVIS W/CONT [address] CT ABDOMEN PELVIS WITH CONTRAST HISTORY: Abdominal [...] PAGE 1 Signed Report (CONTINUED) Name: EMERSON ALMODOAVR [facility] : 1970 Age/S: 48 / M [address] [facility] Unit #: [id number] Loc: [place] [address] Phys: Jerad Adair MD Acct: [id number] Dis Date: Status: REG ER PHONE #: [phone] Exam Date: 10/28/2018 1643 FAX #: Reason: abd pain, coffe ground emesis and melena EXAMS: CPT:[id number] CT ABD PELVIS W/CONT 84600 <Continued> 5.2 x 7 cm fat-containing umbilical [...] Peoples CC: Jerad Adair MD Technologist:MARIA R PEÑA, RT(R)(CT)(MR) CTDI: DLP: Trnscb Date/Time: 10/28/2018 (1654) t.[email or web address].[email or web address] Orig Print D/T: S: 10/28/2018 (4119) CTDI: DLP: PAGE 2 Signed ReportUA RFLX MICR CULT IF [id number] 15:26:00 Test Item Value Reference Range Interpretation [...] Indication for Culture: OtherOther Indication: dizzyBASIC METABOLIC [id number] 15:16:00 Test Item Value Reference Range Interpretation [...] 8.5-10.1 L Completed by Nursing: AYUSHHEPATIC FUNCTION [id number] 15:16:00 Test Item Value Reference Range Interpretation [...] N code = ALKP) Completed by Nursing: [id number] 15:16:00 Test Item Value Reference Range Interpretation Comments LIPASE (test code = LIP) 287 Unit/L 114-286 H Completed by Nursing: [id number] 15:16:00 Test Item Value Reference Range Interpretation [...] yby method. Completed by Nursing: NOBASIC METABOLIC [id number] 15:01:00 Test Item Value Reference Range Interpretation [...] 8.5-10.1 L Completed by Nursing: NOHEPATIC FUNCTION [id number] 15:01:00 Test Item Value Reference Range Interpretation [...] Unit/L 50-136 = ALKP) Completed by Nursing: [id number] 15:01:00 Test Item Value Reference Range Interpretation Comments LIPASE (test code = LIP) 287 Unit/L 114-286 H Completed by Nursing: [id number] 15:01:00 Test Item Value Reference Range Interpretation Comments TROPONIN-I (test code = TROPI) NG/ML 0.000-0.045 Completed by Nursing: NOCBC W/AUTO [id number] 14:51:00 Test Item Value Reference Range Interpretation [...] code = NO DIFF/SCN CRITERIA MDIFF) URINALYSIS [id number] 09:10:00 Test Item Value Reference Range Interpretation [...] = MUCU) TRACE /LPF NONE SEEN URINALYSIS [id number] 08:59:00 Test Item Value Reference Range Interpretation [...] DIPSTICK (test code = LEUU) COMPREHENSIVE METABOLIC [id number] 08:47:00 Test Item Value Reference Range Interpretation [...] LDL/HDL) 1.20 Ratio 1.48-3.22 Avg L URIC [id number] 08:47:00 Test Item Value Reference Range Interpretation Comments URIC ACID (test code = URIC) 4.0 MG/DL 3.5-7.2 N T4 [id number] 08:47:00 Test Item Value Reference Range Interpretation Comments T4 FREE (test code = T4F) 0.94 NG/DL 0.89-1.76 N THYROID STIMULATING [id number] 08:47:00 Test Item Value Reference Range Interpretation Comments THYROID STIMULATING HORMONE 2.260 mcIU/ML 0.340-4.820 N (test code = TSH) GLYCOSYLATED HEMOGLOBIN (HA1C)2018-09-05 08:43:00 Test Item Value Reference Range Interpretation Comments GLYCOSYLATED HEMOGLOBIN (HA1C) 6.3 % A1C 4.2-6.3 N (test code = GLYHGB) COMPREHENSIVE METABOLIC [id number] 08:34:00 Test Item Value Reference Range Interpretation [...] code = LDL/HDL) Ratio 1.48-3.22 Avg URIC [id number] 08:34:00 Test Item Value Reference Range Interpretation Comments URIC ACID (test code = URIC) MG/DL 3.5-7.2 T4 [id number] 08:34:00 Test Item Value Reference Range Interpretation Comments T4 FREE (test code = T4F) NG/DL 0.89-1.76 THYROID STIMULATING [id number] 08:34:00 Test Item Value Reference Range Interpretation Comments THYROID STIMULATING HORMONE (test mcIU/ML 0.340-4.820 code = TSH) CBC W/AUTO [id number] 08:20:00 Test Item Value Reference Range Interpretation [...] NO DIFF/SCN CRITERIA MDIFF) CALCULI URINARY WITH [id number] 09:18:00 Test Item Value Reference Range Interpretation [...] wi ll follow via computer,mail o r tailings man deliver y. ST COMMENT 3 (test Comment () Physician questions code = CMTST3) regarding Saeed culi Analysis contactSaint Johns [facility] HospitalCo at: [phone]. - XR FLUOROSCOPY 0-60 [id number] 07:32:00 Name: EMERSON ALMODOVAR [place] : 1970 Age/S: 48 / M [address] Unit #: [id number] Loc: [place] [address] Phys: Raul Benitez MD Acct: [id number] Dis Date: Status: [facility] PHONE #: [phone] Exam Date: 08/18/2018 1747 FAX #: Reason: LITHOTRIP ISY WITH STENT, CYSTO EXAMS: CPT: [id number] XR FLUOROSCOPY 0-60 MIN 98989 Fluoro Time: 36.4 DAP (Gy m2): Air Kerma (mGy): EXAMINATION: - XR FLUOROSCOPY 0-60 MIN. LOCATION: B2. HISTORY: LITHOTRIPISY WITH STENT, CYSTO. TECHNIQUE: Intraoperative fluoroscopy was utilized during surgery. Total reference air kerma was 24.15mGy. FINDINGS/ IMPRESSION: Intraoperative fluoroscopy was utilized during a urologic procedure with placement of a left ureteral stent. Please refer to operative report for detail. at 1012 Reported and signed by: Kendy Urena M.D. CC: Raul Benitez MD PAGE 1 Signed Report Name: EMERSON ALMODOVAR [place] : 1970 Age/S: 48 / M [address] Unit #: [id number] Loc: [place] [address] Phys: Raul Benitez MD Acct: [id number] Dis Date: Status: [facility] [employer] PHONE #: [phone] Exam Date: 08/18/2018 5379 FAX #: Reason: LITHOTRIPISY WITH STENT, CYSTO EXAMS: CPT: [id number] XR FLUOROSCOPY 0-60 MIN 42033 Fluoro Time: 36.4 DAP (Gy m2): Air Kerma (mGy): <Continued> Technologist: Alfredo Nugent RT(R)(CT) Trnscb Date/Time: 08/19/2018 (0732) Juan C.PR7 Orig Print D/T: S: 08/19/2018 (0736) PAGE 2 Signed Report
--- NOTE | 2020-07-06 15:27 | EDPHYS ---
Physician Documentation [facility] Name: Syed Chambers Age: 50 yrs Sex: Male : 1970 Arrival Date: 07/06/2020 Time: 11:41 Bed 16 Private MD: GAETANO Physician Jorge Gar HPI: 07/06 15:23 This 50 yrs old Male presents to ER via Ambulatory with complaints of Leg Pain.kb 15:23 The patient presents with pain, swelling, tenderness. The complaints affect the left kb barrow. Context: The problem was sustained at home, the patient can fully bear weight, the patient is able to ambulate, Problem is a result from a previous injury: No. Onset: The symptoms/episode began/occurred 2 day(s) ago. Modifying factors: The symptoms are alleviated by nothing. the symptoms are aggravated by nothing. Associated signs and symptoms: Pertinent positives: swelling, Pertinent negatives calf tenderness, fever, nausea, numbness, rash, tingling, vomiting, warmth, weakness. Severity of symptoms: At their worst the symptoms were mild, in the emergency department the symptoms are unchanged. The patient has experienced a previous episode. The patient has not recently seen a physician. Pt reports redness, swelling and warmth to left lower leg. Pain started 2 days ago, other symptoms began last night. Historical: - Allergies: 12:08 PENICILLINS; ss - PMHx: 12:08 Atrial Fib; Hypertension; PE; ss - PSHx: 12:08 Knee surgery; Cardiac ablation; ss - Immunization history:: Adult Immunizations up to date. - Social history:: Smoking status: Patient denies any tobacco usage or history of. ROS: 15:21 Constitutional: Negative for fever, chills, and weight loss, Cardiovascular: Negative kb for chest pain, palpitations, and edema, Respiratory: Negative for shortness of breath, cough, wheezing, and pleuritic chest pain, Abdomen/GI: Negative for abdominal pain, nausea, vomiting, diarrhea, and constipation, MS/Extremity: Negative for injury and deformity, Neuro: Negative for headache, weakness, numbness, tingling, and seizure. 15:21 Skin: Positive for erythema, swelling, of the left barrow. Exam: 15:19 Constitutional: This is a well developed, well nourished patient who is awake, alert, kb and in no acute distress. Head/Face: Normocephalic, atraumatic. Chest/axilla: Normal chest wall appearance and motion. Nontender with no deformity. No lesions are appreciated. Cardiovascular: Regular rate and rhythm with a normal S1 and S2. No gallops, murmurs, or rubs. Normal PMI, no JVD. No pulse deficits. Respiratory: Lungs have equal breath sounds bilaterally, clear to auscultation and percussion. No rales, rhonchi or wheezes noted. No increased work of breathing, no retractions or nasal flaring. Abdomen/GI: Soft, non-tender, with normal bowel sounds. No distension or tympany. No guarding or rebound. No evidence of tenderness throughout. MS/ Extremity: Pulses equal, no cyanosis. Neurovascular intact. Full, normal range of motion. Neuro: Awake and alert, GCS 15, oriented to person, place, time, and situation. Cranial nerves II-XII grossly intact. Motor strength 5/5 in all extremities. Sensory grossly intact. Cerebellar exam normal. Normal gait. 15:19 Skin: cellulitis, that is minimal, on the left barrow. Vital Signs: 12:08 Weight 163.29 kg; Height 5 ft. 8 in. (172.72 cm); Pain 3/10; ss 12:08 BP 162 / 107; Pulse 92; Resp 19; Temp 98.2(O); Pulse Ox 97% on R/A; ss 12:08 Body Mass Index 54.74 (163.29 kg, 172.72 cm) MDM: 13:53 Patient medically screened. [facility] 15:19 Data reviewed: vital signs, nurses notes. Data interpreted: Pulse oximetry: on room air kb is 97 %. Interpretation: normal. Counseling: I had a detailed discussion with the patient and/or guardian regarding: the historical points, exam findings, and any diagnostic results supporting the discharge/admit diagnosis, radiology results, the need for outpatient follow up, a family practitioner, to return to the emergency department if symptoms worsen or persist or if there are any questions or concerns that arise at home. 07/06 12:27 Order name: US Extremity Venous Unilateral Ltd kb Administered Medications: No medications were administered Disposition: 07/07 08:45 Co-signature as Attending Physician, Jorge Gar MD I agree with the assessment and mychal plan of care. Disposition: 07/06/20 15:26 Discharged to Home. Impression: Cellulitis of left lower limb. - Condition is Stable. - Discharge Instructions: Cellulitis, Adult, Tjjf-my-Mhbg. - Prescriptions for Bactrim DS 800- 160 mg Oral Tablet - take 1 tablet by ORAL route every 12 hours for 10 days; 20 tablet. - Medication Reconciliation Form, Thank You Letter, Antibiotic Education, Prescription Opioid Use, Work release form form. - Follow up: Emergency Department; When: As needed; Reason: Worsening of condition. Follow up: Private Physician; When: 2 - 3 days; Reason: Recheck today's complaints, Continuance of care, Re-evaluation by your physician. Signatures: Dispatcher [employer] EDMS Madonna Boudreaux, ASSOCIATE PROFESSOR OF LIBRARY MEDIA-C ASSOCIATE PROFESSOR OF LIBRARY MEDIA-Jorge Alonzo MD MD cha Smirch, Shelby, RN RN ss Brian Robledo RN RN ll1 Corrections: (The following items were deleted from the chart) 07/06 15:39 15:26 07/06/2020 15:26 Discharged to Home. Impression: Cellulitis of left lower limb. ll1 Condition is Stable. Forms are Medication Reconciliation Form, Thank You Letter, Antibiotic Education, Prescription Opioid Use. Follow up: Emergency Department; When: As needed; Reason: Worsening of condition. Follow up: Private Physician; When: 2 - 3 days; Reason: Recheck today's complaints, Continuance of care, Re-evaluation by your physician. kb
--- NOTE | 2020-07-06 15:27 | ER ---
Nurse's Notes [facility] Name: Syed Chambers Age: 50 yrs Sex: Male : 1970 Arrival Date: 07/06/2020 Time: 11:41 Bed 16 Private MD: Diagnosis: Cellulitis of left lower limb Presentation: 07/06 12:08 Chief complaint: Patient states: Redness and warmth to L lower leg. Pt believes he has ss cellulitis again. Symptoms began 3 days ago. Coronavirus screen: Client denies travel out of the [place] in the last 14 days. At this time, the client does not indicate any symptoms associated with coronavirus-19. Ebola Screen: Patient denies exposure to infectious person. Patient denies travel to an Ebola-affected area in the 21 days before illness onset. Initial Sepsis Screen: Does the patient meet any 2 criteria? No. Patient's initial sepsis screen is negative. Does the patient have a suspected source of infection? Yes: Catheter related infection ([facility]/dialysis/PICC/central line). Risk Assessment: Do you want to hurt yourself or someone else? Patient reports no desire to harm self or others. Onset of symptoms was July 03, 2020. 12:08 Method Of Arrival: Ambulatory ss 12:08 Acuity: MATT 3 ss Historical: - Allergies: 12:08 PENICILLINS; ss - PMHx: 12:08 Atrial Fib; Hypertension; PE; ss - PSHx: 12:08 Knee surgery; Cardiac ablation; ss - Immunization history:: Adult Immunizations up to date. - Social history:: Smoking status: Patient denies any tobacco usage or history of. Screenin:05 Abuse screen: Denies threats or abuse. Nutritional screening: No deficits noted. em Tuberculosis screening: No symptoms or risk factors identified. Fall Risk None identified. Assessment: 14:05 General: Appears in no apparent distress. comfortable, Behavior is calm, cooperative, em appropriate for age, Denies fever. Pain: Complains of pain in left calf and left barrow Pain currently is 3 out of 10 on a pain scale. Pain began 2-3 days ago. Neuro: Level of Consciousness is awake, alert, obeys commands, Oriented to person, place, time, situation, Appropriate for age. Cardiovascular: Capillary refill < 3 seconds Patient's skin is warm and dry. Respiratory: Airway is patent Respiratory effort is even, unlabored, Respiratory pattern is regular, symmetrical, Denies shortness of breath. Derm: Skin is intact, is healthy with good turgor, Skin is pink, warm \T\ dry. Musculoskeletal: Capillary refill < 3 seconds, Range of motion: intact in all extremities. 15:05 Reassessment: pending US study. em Vital Signs: 12:08 Weight 163.29 kg; Height 5 ft. 8 in. (172.72 cm); Pain 3/10; ss 12:08 BP 162 / 107; Pulse 92; Resp 19; Temp 98.2(O); Pulse Ox 97% on R/A; ss 12:08 Body Mass Index 54.74 (163.29 kg, 172.72 cm) ED Course: 11:41 Patient arrived in ED. rg4 12:08 Arm band placed on right wrist. ss 12:10 Triage completed. ss 12:28 Madonna Boudreaux FNP-C is PHCP. kb 12:28 Jorge Gar MD is Attending Physician. kb 13:52 Adan Bell, RN is Primary Nurse. em 14:05 Patient has correct armband on for positive identification. em 15:06 Patient taken to ultrasound. via wheelchair. lc3 15:29 US Extremity Venous Unilateral Ltd In Process Unspecified. EDMS 15:31 No provider procedures requiring assistance completed. Patient did not have IV access em during this emergency room visit. Administered Medications: No medications were administered Outcome: 15:26 Discharge ordered by MD. kb 15:38 Discharged to home ambulatory. ll1 15:38 Condition: stable 15:38 Discharge instructions given to patient, Instructed on discharge instructions, follow up and referral plans. medication usage, Demonstrated understanding of instructions, follow-up care, medications, Prescriptions given X 1. 15:39 Patient left the ED. ll1 Signatures: Dispatcher [employer] EDMS Madonna Boudreaux FNP-C FNP-Adan Carrera, JAQUELIN HAMMER Radha Denise RN RN Stephanie Rodriguez Rubi rg4 Brian Robledo RN RN ll1
--- NOTE | 2020-07-06 15:49 | RAD REPORT ---
EXAM DESCRIPTION: US - Extremity Venous Uni Ltd - 07/06/2020 3:29 pm CLINICAL HISTORY: PAIN Leg swelling and edema. COMPARISON: Extremity Venous Uni Ltd dated 02/21/2017 FINDINGS: Left lower extremity venous system was interrogated with Doppler technique. Normal flow, c ompressibility and augmentation was noted. There is no DVT present. IMPRESSION: No evidence of left lower extremity deep venous thrombosis.
[2020-07-06 15:50] VITALS: BP 162/107; TEMP 98.2; O2SAT 97
== END 2020-07-06 15:39 | disposition home or self-care (01) ==
LOC: ER 11:38
DX: L03.116 Cellulitis of left lower limb (principal); I10 Essential (primary) hypertension; Z88.0 Allergy status to penicillin
CPT/HCPCS: 93971; 99284